=== PATIENT | female | born 1945 | race Caucasian/White ===

== ENCOUNTER 2017-02-22 08:45 | Inpatient (IN) | payer MEDICAID, OTHER ==
[~2017-02-22] VITALS: Ht 154.9 cm; Wt 73.0 kg
[2017-02-22] VITALS (10 sets, daily range): BP systolic 137–184; BP diastolic 53–88; PULSE 48–82; RESP 19; TEMP 98.1; Ht 154.9 cm; Wt 73.0 kg
[~2017-02-22 08:45] MED LIST: ATROPINE 1 MG/10 ML SYRINGE ONE; CALC667C PO; EPINEPHrine 0.1 MG/ML SYG ONE; ESOM40CA PO; FAMO40TA38 PO; FLUO20CA38 PO; HYDR-3672 PO; LOSA50TA2 PO; METO5TAB58 PO; NEPH PO; NIFE60TA7 PO; ONDA4TAB8 PO; TRAM50TA2 PO
[2017-02-22] MEDS ORDERED: NA BICARBONATE 8.4% 50 ML SYG IV STA (08:50)
[2017-02-22] MEDS ORDERED: ALBUTEROL 0.5% (NEB) 2.5 MG/0.5 ML AMP INH STA (08:57)
[2017-02-22 09:28] LABS: BASOPHILS % 0.5 % (0.0-2.0); EOSINOPHILS # 0.2 10^3/ul (0.0-0.5); EOSINOPHILS % 2.7 % (0.0-7.0); HEMATOCRIT 33.1 % (37.0-47.0); HEMOGLOBIN 10.6 g/dl (12.0-16.0); LYMPHOCYTES % 13.2 % (15.0-51.0); MEAN CORPUSCULAR HEMOGLOBIN 32.8 pg (29.0-33.0); MEAN CORPUSCULAR VOLUME 102.5 fl (82.0-101.0); MEAN PLATELET VOLUME 9.7 fl (7.4-10.4); MONOCYTE # 0.6 10^3/ul (0.3-0.9); MONOCYTES % 7.8 % (0.0-11.0); NEUTROPHIL # 5.9 10^3/ul (1.6-7.5); NEUTROPHILS % 75.3 % (39.0-77.0); PLATELET COUNT 203 10^3/UL (140-415); RED BLOOD COUNT 3.23 10^6/ul (4.20-5.40); WHITE BLOOD COUNT 7.8 10^3/ul (4.8-10.8)
[2017-02-22 09:50] LABS: CALCIUM 8.2 mg/dl (8.4-10.2); CREATININE 7.48 mg/dl (0.44-1.00)
[2017-02-22 10:02] LABS: POTASSIUM 7.9 mmol/L (3.5-5.1); TROPONIN-I 0.041 ng/ml (0.00-0.12)
[2017-02-22] MEDS ORDERED: INSULIN REGULAR, HUMAN 100 UNIT/1 ML 3ML VIAL IV STA (10:14)
[2017-02-22] MEDS ORDERED: CA CHLORIDE 10% 10 ML SYRINGE IV STA (10:14)
[2017-02-22] MEDS ORDERED: NA POLYST SULFON 15 GM/60 ML BTL PO STA (10:14)
[2017-02-22 10:22] LABS: INR 0.95; PROTIME 12.7 Sec (12.2-14.2)
[2017-02-22] MEDS ORDERED: ACETAMINOPHEN 325 MG TAB PO PRN (10:30)
[2017-02-22] MEDS ORDERED: ONDANSETRON 4 MG INJ IV PRN (10:30)
[2017-02-22] MEDS ORDERED: DEXTROSE 50% 50 ML SYRINGE IV PRN ×3 (10:30→20:30)
--- NOTE | 2017-02-22 10:43 | RADRPT ---
PROCEDURE: XR Chest. CLINICAL INDICATION: Hyperkaliemia TECHNIQUE: Frontal chest x-ray was obtained. COMPARISON: Chest x-ray November 26, 2012 FINDINGS: There is cardiomegaly. Mediastinum is not widened. No hilar masses seen. Lungs are clear of any infi ltrates. There is no effusion or pneumothorax. Noted is an old healed left clavicular shaft fracture . IMPRESSION: Cardiomegaly. No pneumonia or failure .Lico Rodriguez MD, MD Date Time Electronically viewed and signed by .Lico Rodriguez MD, MD on 02/22/2017 10:43 .A/
--- NOTE | 2017-02-22 12:18 | QN ---
Documentation Comment [id number] KENZIE BROWNE MD Feb 22, 2017 12:18
[2017-02-22] MEDS ORDERED: NACL 0.9% 3 ML SYG IV SCH (12:30)
[2017-02-22] MEDS ORDERED: BISACODYL (EC) 5 MG TAB PO PRN (12:30)
[2017-02-22] MEDS ORDERED: ACETAMINOPHEN 650 MG SUPP PR PRN (12:30)
[2017-02-22] MEDS ORDERED: METOCLOPRAMIDE 5 MG TAB PO PRN (12:30)
[2017-02-22] MEDS ORDERED: DOCUSATE SODIUM 100 MG CAP PO PRN (12:30)
[2017-02-22] MEDS ORDERED: ONDANSETRON 4 MG TAB PO PRN (12:30)
--- NOTE | 2017-02-22 12:30 | ERD ---
ER Documentation Chief Complaint Chief Complaint more lethargic than normal coming from dialysis center didnt received treat HPI Patient is a 71-year-old female with hypertension, diabetes, and dialysis who presents with confusion. The patient was sent from dialysis because she was confused and they would not dialyze her because of it. She was brought in by ambulance. She did said that she fell yesterday because she felt diffusely weak. She did have dialysis on Monday. Her primary doctor is Dr. Reno. ROS All systems reviewed and are negative except as per history of present illness. Medications Home Meds Active Scripts Nifedipine* (Nifedipine ER*) 60 Mg Tablet.sa, 60 MG PO BID, #120 TAB.SA Prov:MARVIN WATKINS MD 04/10/14 Reported Medications Tramadol HCl (Tramadol HCl) 50 Mg Tab, 25 MG PO DAILY Y for PAIN, TAB 04/09/14 Ondansetron Hcl* (Zofran*) 4 Mg Tablet, 4 MG PO DAILY Y for NAUSEA AND OR VOMITING, TAB 04/09/14 Metoclopramide* (Reglan*) 5 Mg Tablet, 5 MG PO DAILY Y for NAUSEA AND/OR VOMITING, TAB 04/09/14 Calcium Acetate* (Calcium Acetate*) 667 Mg Capsule, 667 MG PO WITH MEALS, CAP 04/09/14 Hydralazine Hcl* (Hydralazine Hcl*) 50 Mg Tab, 50 MG PO TID, TAB 04/09/14 Multivit/Ca Carb/B Cmplx/Fa* (Beronica-Morgan*) 1 Tab Tab, 1 TAB PO DAILY, TAB 04/09/14 Fluoxetine Hcl* (Prozac*) 20 Mg Capsule, 20 MG PO DAILY 01/09/12 Famotidine* (Pepcid*) 40 Mg Tablet, 40 MG PO HS 01/09/12 Esomeprazole Mag Trihydrate (Nexium) 40 Mg Capsule.dr, 40 MG PO DAILY 01/09/12 Losartan Potassium* (Cozaar*) 50 Mg Tablet, 50 MG PO BID 01/09/12 Allergies Allergies: Coded Allergies: No Known Allergies (Verified Allergy, Mild, 02/22/17) PMhx/Soc History of Surgery: Yes (rt and left toe amp) Anesthesia Reaction: No Hx Neurological Disorder: No Hx Respiratory Disorders: No Hx Cardiac Disorders: Yes (HTN) Hx Psychiatric Problems: Yes (DEPRESSION) Hx Miscellaneous Medical Probl: Yes (RETINOPATHY,COMP FRACTURE,DIALYSIS MWF) Hx Alcohol Use: No Hx Substance Use: No Hx Tobacco Use: No Smoking Status: Former smoker FmHx Family History: No diabetes Physical Exam Vitals Vital Signs Date Time Temp Pulse Resp B/P Pulse Ox O2 Delivery O2 Flow Rate FiO2 02/22/17 09:27 85 20 144/90 100 Room Air 02/22/17 09:12 98.4 121 15 129/95 96 02/22/17 09:08 62 18 96 21 Physical Exam Const: No acute distress Head: Atraumatic Eyes: Normal Conjunctiva ENT: Normal External Ears, Nose and Mouth. Neck: Full range of motion..~ No meningismus. Resp: Clear to auscultation bilaterally Cardio: Regular rate and rhythm, no murmurs Abd: Soft, non tender, non distended. Normal bowel sounds Skin: No petechiae or rashes Back: No midline or flank tenderness Ext: No cyanosis, or edema Neur: Awake and moves all 4 extremities Result Diagram: 02/22/17 0910 02/22/17 0910 Results 24 hrs Laboratory Tests Test 02/22/17 09:10 White Blood Count 7.810^3/ul Red Blood Count 3.2310^6/ul Hemoglobin 10.6g/dl Hematocrit 33.1% Mean Corpuscular Volume 102.5fl Mean Corpuscular Hemoglobin 32.8pg Mean Corpuscular Hemoglobin Concent 32.0g/dl Red Cell Distribution Width 17.0% Platelet Count 16474^3/UL Mean Platelet Volume 9.7fl Neutrophils % 75.3% Lymphocytes % 13.2% Monocytes % 7.8% Eosinophils % 2.7% Basophils % 0.5% Nucleated Red Blood Cells % 0.0/100WBC Neutrophils # 5.910^3/ul Lymphocytes # 1.010^3/ul Monocytes # 0.610^3/ul Eosinophils # 0.210^3/ul Basophils # 0.010^3/ul Nucleated Red Blood Cells # 0.010^3/ul Prothrombin Time 12.7Sec Prothrombin Time Ratio 1.0 INR International Normalized Ratio 0.95 Activated Partial Thromboplast Time 33.0Sec Sodium Level 133mmol/L Potassium Level 7.9mmol/L Chloride Level 88mmol/L Carbon Dioxide Level 26mmol/L Anion Gap 27 Blood Urea Nitrogen 85mg/dl Creatinine 7.48mg/dl Glucose Level 141mg/dl Calcium Level 8.2mg/dl Troponin I 0.041ng/ml Current Medications Medications (Trade) Dose Ordered Sig/Cornelius Route PRN Reason Start Time Stop Time Status Last Admin Dose Admin Sodium Bicarbonate (Na Bicarb 8.4% Syg) 50 ml ONCE STAT IV 02/22/17 08:50 02/22/17 08:52 DC 02/22/17 09:26 Albuterol (Proventil 0.5% (Neb)) 15 mg ONCE STAT INH 02/22/17 08:57 02/22/17 08:58 DC 02/22/17 09:05 Sodium Polystyrene Sulfonate (Kayexalate) 30 gm ONCE STAT PO 02/22/17 10:14 02/22/17 10:15 DC 02/22/17 10:25 Calcium Chloride (Ca Chloride 10% Syg) 1,000 mg ONCE STAT IV 02/22/17 10:14 02/22/17 10:15 DC 02/22/17 10:25 Insulin Human Regular (Humulin R) 10 unit ONCE STAT IV 02/22/17 10:14 02/22/17 10:15 DC 02/22/17 10:27 Dextrose (D50w Syringe) ONCE PRN IV POC BLOOD GLUCOSE <250 MG/DL 02/22/17 10:30 Ondansetron HCl (Zofran Inj) 4 mg ER BRIDGE PRN IV NAUSEA AND/OR VOMITING 02/22/17 10:30 02/22/17 12:17 DC Acetaminophen (Tylenol Tab) 650 mg ER BRIDGE PRN PO MILD PAIN/FEVER 02/22/17 10:30 02/22/17 12:16 DC Calcium Acetate (Phoslo) 667 mg WITH MEALS PO 02/22/17 18:00 Famotidine (Pepcid) 40 mg HS PO 02/22/17 21:00 Fluoxetine HCl (Prozac) 20 mg DAILY PO 02/23/17 09:00 Hydralazine HCl (Apresoline) 50 mg TID PO 02/22/17 13:00 Losartan Potassium (Cozaar) 50 mg BID PO 02/22/17 21:00 Metoclopramide HCl (Reglan) 5 mg DAILY PRN PO NAUSEA AND/OR VOMITING 02/22/17 12:30 Multivit/Ca Carb/ B Cmplx/FA/Prenat (Beronica-Morgan) 1 tab DAILY PO 02/23/17 09:00 Nifedipine (Procardia Xl) 60 mg BID PO 02/22/17 21:00 Ondansetron HCl (Zofran Tab) 4 mg DAILY PRN PO NAUSEA AND/OR VOMITING 02/22/17 12:30 Tramadol HCl (Ultram) 25 mg DAILY PRN PO PAIN 02/22/17 12:30 IV Flush (NS 3 ml) 3 ml PER PROTOCOL IV 02/22/17 12:30 Ondansetron HCl (Zofran Inj) 4 mg Q6H PRN IV NAUSEA AND/OR VOMITING 02/22/17 12:30 Acetaminophen (Tylenol Tab) 650 mg Q6H PRN PO PAIN LEVEL 1-3 OR FEVER 02/22/17 12:30 Acetaminophen (Tylenol Supp) 650 mg Q6H PRN VA PAIN LEVEL 1-3 OR FEVER 02/22/17 12:30 Docusate Sodium (Colace) 100 mg Q12H PRN PO CONSTIPATION 02/22/17 12:30 Bisacodyl (Dulcolax) 5 mg DAILY PRN PO CONSTIPATION 02/22/17 12:30 Pantoprazole (Protonix Iv) 40 mg DAILY@06 IV 02/23/17 06:00 Heparin Sodium (Porcine) (Heparin (5000 Units/0.5 ml)) 5,000 unit Q12 SC 02/22/17 21:00 Procedures/MDM EKG read by me: Rate/Rhythm: Bradycardia with third-degree heart block Intervals: Normal Impression: Bradycardia with heart block Patient is a 71-year-old female who presents with acute hyperkalemia. The patient had bradycardia and heart block upon arrival and I did have concern for hyperkalemia as the patient is a dialysis patient. The patient was given albuterol and bicarbonate empirically. Her potassium was confirmed at 7.9 showing hyperkalemia and the patient was given insulin, glucose, calcium chloride, and bicarbonate. The patient will be admitted to the care of Dr. Reno. He is arranging emergent dialysis in the emergency department. The patient's bradycardia and heart block improved with treatment of the potassium. I do not believe she requires pacemaker placement at this time. Critical Care: Time: 35 minutes excluding all billable procedures. Treatments/Evaluations: Close monitoring and treatment of unstable vital signs, cardiorespiratory, and neurologic status, while maintaining tight balance of fluid, respiratory, and cardiac interventions. Departure Diagnosis: Primary Impression: Hyperkalemia Additional Impressions: Altered level of consciousness Bradycardia Condition: Serious DUANE REARDON MD Feb 22, 2017 12:30
--- NOTE | 2017-02-22 12:55 | HP ---
DATE OF ADMISSION: 02/22/2017 HISTORY OF PRESENT ILLNESS: Mariza Bejarano is a 71-year-old female with history of ESRD, hypert ension, history of diabetes mellitus, neuropathy, history of diabetic nephropathy, retinopathy, neur opathy, history of right great toe amputation, , history of GERD, history of CAD, atherosclerot ic heart disease, presented to the dialysis center, was weak, lethargic, sent here. The patient dev eloped bradycardia and hyperkalemia and treated medically and patient is going to be undergoing hemo dialysis. He is awake, alert, not in any acute respiratory distress. Denies any chest pain, palpit ation, fever, chills or rigors. PAST MEDICAL HISTORY: Positive for diabetes, hypertension, ESRD, anemia, history of GI bleed, histo ry of diabetic nephropathy, retinopathy and neuropathy, fistula placement, arthritis, wheelchair ariane nd. ALLERGY HISTORY: NEGATIVE. FAMILY HISTORY: Negative. SOCIAL HISTORY: Negative. MEDICATION HISTORY: 1. PhosLo. 2. Omeprazole. 3. Pepcid. 4. Prozac. 5. Hydralazine. 6. Losartan. 7. Reglan. 8. Multiple vitamin. 9. Nifedipine 10. Tramadol. REVIEW OF SYSTEMS: HEENT: Unremarkable except as mentioned. RESPIRATORY: Unremarkable. CARDIOVASCULAR: No chest wall palpitation. ABDOMEN: Dyspepsia on and off and history of gastrointestinal bleed. EXTREMITIES: Unremarkable. CENTRAL NERVOUS SYSTEM: Unremarkable. PHYSICAL EXAMINATION: GENERAL: The patient is awake and alert. VITAL SIGNS: Pulse 80, blood pressure 140/90. HEAD: Atraumatic, normocephalic. Pupils equal, reactive to light. The patient's pupils are cloudy The patient has pale-looking conjunctivae. NECK: Supple, no JVD. LUNGS: Clear. CARDIOVASCULAR: S1, S2 is normal. Systolic murmur soft at the apex. ABDOMEN: Soft, bowel sounds present, no palpable mass or hepatosplenomegaly. EXTREMITIES: No cyanosis, clubbing or edema. CENTRAL NERVOUS SYSTEM: The patient is awake, alert with no focal deficit. LABORATORY DATA: Shows hematocrit 33.1, potassium 7.9, BUN 18, creatinine 7.48. IMPRESSION: 1. Hyperkalemia. 2. Arrhythmia. 3. End-stage renal disease. 4, Diabetes mellitus. 5. Hypertension. 6. Anemia. 7. Gastrointestinal bleed related. 8. Diabetic nephropathy, retinopathy and neuropathy. PLAN: To continue diabetic renal diet, sliding scale. Continue home medication, hemodialysis STAT. The patient's orders were done. Dictated By: KENZIE BROWNE MD BS/NTS Conf#: [id number] DID#: [id number]
[2017-02-22] MEDS ORDERED: GLUCAGON 1 MG INJ IM PRN (20:30)
[2017-02-22] MEDS ORDERED: GLUCOSE GEL 15 GRAM TUBE PO PRN ×2 (20:30)
[2017-02-22] MEDS ORDERED: GLUCOSE GEL 15 GRAM TUBE BUCCAL PRN (20:30)
[2017-02-22] MEDS: INSULIN ASPART [NOVOLOG] 3 ML PEN SC SCH (21:00)
[2017-02-22] MEDS: CALCIUM ACETATE 667 MG CAP PO SCH (21:36)
[2017-02-22] MEDS: NIFEdipine (XL) 60 MG TAB PO SCH (21:37)
[2017-02-22] MEDS: FAMOTIDINE 20 MG TAB PO SCH (21:37)
[2017-02-22] MEDS: LOSARTAN 50 MG TAB PO SCH (21:37)
[2017-02-22] MEDS: HEPARIN 5,000 UNIT/0.5 ML VIAL SC SCH (21:43)
[2017-02-22] MEDS: traMADol 50 MG TAB PO PRN (21:54)
[2017-02-23] VITALS (51 sets, daily range): BP systolic 121–185; BP diastolic 38–105; PULSE 14–141; RESP 9–25
[2017-02-23] MEDS ORDERED: hydrALAzine 20 MG INJ IV PRN (01:30)
[2017-02-23] MEDS: ACCU-CHEK XX SCH (02:00)
[2017-02-23] MEDS ORDERED: PANTOPRAZOLE 40 MG INJ IV SCH (06:00)
[2017-02-23] MEDS: INSULIN ASPART [NOVOLOG] 3 ML PEN SC SCH ×4 (07:55→21:00)
[2017-02-23] MEDS: MULTIVIT/CA CARB/B CMPLX/FA TAB PO SCH (08:08)
[2017-02-23] MEDS: NIFEdipine (XL) 60 MG TAB PO SCH ×2 (08:08→21:00)
[2017-02-23] MEDS: FLUOXETINE 20 MG CAP PO SCH (08:08)
[2017-02-23] MEDS: CALCIUM ACETATE 667 MG CAP PO SCH ×3 (08:09→17:35)
[2017-02-23] MEDS: LOSARTAN 50 MG TAB PO SCH ×2 (08:09→21:50)
[2017-02-23] MEDS: HEPARIN 5,000 UNIT/0.5 ML VIAL SC SCH ×2 (08:13→22:24)
[2017-02-23] MEDS: traMADol 50 MG TAB PO PRN (08:25)
[2017-02-23 10:01] LABS: ALBUMIN 3.9 g/dl (3.3-4.9); ALBUMIN/GLOBULIN RATIO 1.14; CALCIUM 7.8 mg/dl (8.4-10.2); CREATININE 6.48 mg/dl (0.44-1.00); POTASSIUM 5.9 mmol/L (3.5-5.1); TOTAL PROTEIN 7.3 g/dl (6.1-8.1)
--- NOTE | 2017-02-23 14:56 | QN ---
Documentation Comment SO[employer] called on patient secondary to symptomatic bradycardia with HR in the 20s. Patient was still responsive when entered room and was complaining of weakness. She was talking and let out a loud yelp and went unresponsive. Unable to palpate a pulse and patient was unresponsive and was gurgling. At that time, chest compressions were started on code blue was called. Patient responded and CPR was stopped. patient was given Atropine and initially responded with HR in the 80s and then dropped to 60s. Patient remained awake and alert and states she was feeling better. EKG performed showed sinus bradycardia and LBBB which nurse said was present on admission but unsure if new onset. Primary provider was made aware of event and Dr. Quiles, Cardiology, is already on the case. Stat labs and CXR were ordered. Patient transferred to ICU for close monitoring. >30 minutes of critical care was spent caring for patient PERRI ANDERSON MD Feb 23, 2017 14:56
--- NOTE | 2017-02-23 15:57 | PN ---
Date/Time of Note Date/Time of Note DATE: 02/23/17 TIME: 15:55 Assessment/Plan VTE Prophylaxis VTE Prophylaxis Intervention: other Lines/Catheters IV [facility] Mid [facility] Urinary Cath still in place: No Assessment/Plan Chief Complaint/Hosp Course IMPRESSION: 1. Hyperkalemia. 2. Arrhythmia. 3. End-stage renal disease. 4, Diabetes mellitus. 5. Hypertension. 6. Anemia. 7. Gastrointestinal bleed related. 8. Diabetic nephropathy, retinopathy and neuropathy. 9 r/o sss plan kayexalate hd marcellains to see Problems: Subjective 24 Hr Interval Summary Subjective hx not possible: other (s/pams now in icu,willneed hd) Exam/Review of Systems Vital Signs Vitals Vital Signs Date Time Temp Pulse Resp B/P Pulse Ox O2 Delivery O2 Flow Rate FiO2 02/23/17 15:43 98.2 42 14 155/99 100 02/22/17 18:11 Room Air 02/22/17 09:08 21 Intake and Output 02/22/17 02/22/17 02/23/17 14:59 22:59 06:59 Intake Total 400 ml Output Total 2900 ml Balance -2500 ml Exam Neck: supple Respiratory: clear to auscultation Cardiovascular: regular rate and rhythm Gastrointestinal: bowel sounds (+), soft Extremities: No edema Results Result Diagram: 02/22/17 0910 02/23/17 0840 Results 24 hrs Laboratory Tests Test 02/22/17 21:39 02/23/17 08:04 02/23/17 08:40 02/23/17 12:22 Bedside Glucose 112 104 138 Sodium Level 137 Potassium Level 5.9 #H Chloride Level 92 L Carbon Dioxide Level 32 H Anion Gap 19 #H Blood Urea Nitrogen 57 H Creatinine 6.48 H Glucose Level 107 Calcium Level 7.8 L Total Bilirubin 0.0 L Direct Bilirubin 0.00 Indirect Bilirubin 0.0 Aspartate Amino Transf (AST/SGOT) 27 Alanine Aminotransferase (ALT/SGPT) 23 Alkaline Phosphatase 175 H Total Protein 7.3 Albumin 3.9 Globulin 3.40 H Albumin/Globulin Ratio 1.14 Test 02/23/17 14:26 Bedside Glucose 167 Medications Medications Current Medications Dextrose (D50w Syringe) ONCE PRN IV POC BLOOD GLUCOSE <250 MG/DL Last administered on 02/22/17t 12:28; Admin Dose 100 ML; Start 02/22/17 at 10:30 Famotidine (Pepcid) 40 mg HS PO Last administered on 02/22/17 21:37; Admin Dose 40 MG; Start 02/22/17 at 21:00 Fluoxetine HCl (Prozac) 20 mg DAILY PO Last administered on 02/23/17 08:08; Admin Dose 20 MG; Start 02/23/17 at 09:00 Hydralazine HCl (Apresoline) 50 mg TID PO Last administered on 02/23/17 12:26 ; Admin Dose 50 MG; Start 02/22/17 at 13:00 Losartan Potassium (Cozaar) 50 mg BID PO Last administered on 02/23/17 08:09 ; Admin Dose 50 MG; Start 02/22/17 at 21:00 Metoclopramide HCl (Reglan) 5 mg DAILY PRN PO NAUSEA AND/OR VOMITING; Start at 12:30 Multivit/Ca Carb/ B Cmplx/FA/Prenat (Beronica-Morgan) 1 tab DAILY PO Last administered on 02/23/17 08:08; Admin Dose 1 TAB; Start 02/23/17 at 09:00 Nifedipine (Procardia Xl) 60 mg BID PO Last administered on 02/23/17 08:08; Admin Dose 60 MG; Start 02/22/17 at 21:00 Ondansetron HCl (Zofran Tab) 4 mg DAILY PRN PO NAUSEA AND/OR VOMITING; Start 02/22/17 at 12:30 Tramadol HCl (Ultram) 25 mg DAILY PRN PO PAIN Last administered on 02/23/17 08:25; Admin Dose 25 MG; Start 02/22/17 at 12:30 Ondansetron HCl (Zofran Inj) 4 mg Q6H PRN IV NAUSEA AND/OR VOMITING; Start at 12:30 Acetaminophen (Tylenol Tab) 650 mg Q6H PRN PO PAIN LEVEL 1-3 OR FEVER; Start 02/22/17 at 12:30 Acetaminophen (Tylenol Supp) 650 mg Q6H PRN HI PAIN LEVEL 1-3 OR FEVER; Start 02/22/17 at 12:30 Docusate Sodium (Colace) 100 mg Q12H PRN PO CONSTIPATION; Start 02/22/17 at 12 :30 Bisacodyl (Dulcolax) 5 mg DAILY PRN PO CONSTIPATION; Start 02/22/17 at 12:30 Heparin Sodium (Porcine) (Heparin (5000 Units/0.5 ml)) 5,000 unit Q12 SC Last administered on 02/23/17 08:13; Admin Dose 5,000 UNIT; Start 02/22/17 at 21: 00 Diagnostic Test (Pha) (Accu-Chek) 1 ea 02 XX ; Start 02/23/17 at 02:00 Miscellaneous Information 1 ea NOTE XX ; Start 02/22/17 at 20:30 Glucose (Glutose) 15 gm Q15M PRN PO DECREASED GLUCOSE; Start 02/22/17 at 20:30 Glucose (Glutose) 22.5 gm Q15M PRN PO DECREASED GLUCOSE; Start 02/22/17 at 20: 30 Dextrose (D50w Syringe) 25 ml Q15M PRN IV DECREASED GLUCOSE; Start 02/22/17 at 20:30 Dextrose (D50w Syringe) 50 ml Q15M PRN IV DECREASED GLUCOSE; Start 02/22/17 at 20:30 Glucagon (Glucagen) 1 mg Q15M PRN IM DECREASED GLUCOSE; Start 02/22/17 at 20: 30 Glucose (Glutose) 15 gm Q15M PRN BUCCAL DECREASED GLUCOSE; Start 02/22/17 at 20:30 Hydralazine HCl (Apresoline) 10 mg Q6H PRN IV ELEVATED SYSTOLIC BP Last administered on 02/23/17 01:39; Admin Dose 10 MG; Start 02/23/17 at 01:30 Pantoprazole (Protonix Tab) 40 mg DAILY@06 PO ; Start 02/24/17 at 06:00 KENZIE BROWNE MD Feb 23, 2017 15:57
[2017-02-23] MEDS ORDERED: NA POLYST SULFON 15 GM/60 ML BTL PO ONE (16:00)
[2017-02-23 16:31] LABS: CALCIUM 7.4 mg/dl (8.4-10.2); CREATININE 6.69 mg/dl (0.44-1.00); MAGNESIUM 2.8 mg/dl (1.7-2.5); PHOSPHORUS 5.4 mg/dl (2.5-4.9)
[2017-02-23 16:38] LABS: POTASSIUM 6.7 mmol/L (3.5-5.1)
--- NOTE | 2017-02-23 16:38 | RADRPT ---
PROCEDURE: XR Chest. CLINICAL INDICATION: Status post chest compressions. TECHNIQUE: Single AP portable chest. COMPARISON: 04/09/2013 Chest x-ray FINDINGS: The cardiomediastinal silhouette is within normal limits of size. Pacemaking device overlying the ri ght atrium mild prominence of the pulmonary vascularity and interstitial markings. The lungs are erika ar without pleural effusion or focal consolidation. No pneumothorax. The osseous structures and sof t tissues are unremarkable. IMPRESSION: 1. No evidence for active cardiopulmonary disease. RPTAT:AAJJ Reji Lopez Physician Date Time Electronically viewed and signed by Physician Junior on 02/23/2017 16:38 ASHLEY/
[2017-02-23] MEDS ORDERED: ATROPINE 1 MG/10 ML SYRINGE ONE (16:47)
[2017-02-23] MEDS ORDERED: NA BICARBONATE 8.4% 50 ML SYG IV ONE (17:30)
[2017-02-23] MEDS ORDERED: CALCIUM GLUCONATE 10% 1 GM in SOD CHLORIDE 0.9% 100 ML IVPB ONE (17:30)
[2017-02-23] MEDS ORDERED: INSULIN REGULAR, HUMAN 100 UNIT/1 ML 3ML VIAL IV ONE (17:30)
[2017-02-23] MEDS ORDERED: DEXTROSE 50% 50 ML SYRINGE IV ONE (17:30)
[2017-02-23] MEDS ORDERED: ATROPINE 0.4 MG INJ IV ONE (18:00)
[2017-02-23] MEDS ORDERED: DOPamine-D5W 1.6 MG/ML 250 ML IV SCH (18:00)
[2017-02-23 19:39] LABS: CK-MB 0.93 ng/ml (0.0-2.4); TROPONIN-I 0.07 ng/ml (0.00-0.12)
[2017-02-23] MEDS: ONDANSETRON 4 MG INJ IV PRN (21:38)
[2017-02-23] MEDS: FAMOTIDINE 20 MG TAB PO SCH (21:50)
--- NOTE | 2017-02-23 21:51 | CONS ---
DATE OF ADMISSION: 02/22/2017 DATE OF CONSULTATION: 02/23/2017 CARDIOLOGY CONSULTATION REASON FOR CONSULTATION: Cardiac arrhythmia with severe bradycardia to the 40s and high 30s. REQUESTING PHYSICIAN: Dr. Watson Browne HISTORY OF PRESENT ILLNESS: Ms. Bejarano is a 71-year-old female with history of end-stage renal disease on hemodialysis, hypertension, diabetes mellitus, neuropathy, diabetic nephropathy, retinopathy, PAD with right great toe amputation, gastroesophageal reflux disease, who initially presented to the dialysis center with lethargy, generalized weakness. The patient was found to be bradycardic and hyperkalemic, and therefore sent to [facility] for further evaluation and treatment. Initially upon arrival, temperature 98.4, blood pressure 129/95, pulse initially 121, saturating 96% with a respiratory rate of 15 on room air. The patient's labs were notable for a white blood cell count of 7.8, hemoglobin 10.6, platelet count of 203, sodium of 5.9, creatinine of 6.4, BUN 57, magnesium 2.8. INR of 0.95. The patient underwent a chest x-ray revealing cardiomegaly, but no pneumonia or failure. The patient's electrocardiogram initially revealed a heart rate of 59 with left bundle branch block pattern secondary to repolarization abnormalities and then subsequently had a decrease in heart rate down to approximately 30, concerning for possible junctional escape rhythm versus a ventricular escape rhythm, with a wide QRS complex, although patient has baseline bundle branch. The patient subsequently was admitted to the floor and initially underwent hemodialysis with some improvement in heart rates, but then was noted to again have episodes of bradycardia down to the 40s and high 30s, regular, and had a repeat potassium check, now at 6.7. The patient has been transferred to the ICU, has been given Kayexalate, and has been continued now on Procardia, Losartan. Patient now awaits hemodialysis, and has additionally been given calcium carbonate. The patient, at this time, denies chest pain, shortness of breath, but states she feels very weak. PAST MEDICAL HISTORY: As above in HPI. MEDICATIONS CURRENTLY IN HOSPITAL: 1. Protonix. 2. Calcium gluconate IV x1. 3. Prozac 20 mg daily. 4. Beronica-Morgan. 5. Hydralazine IV q.6 p.r.n. 6. Pepcid 40 mg at bedtime. 7. Cozaar 50 mg b.i.d. 8. Procardia 60 mg b.i.d. 9. Heparin 5000 subcutaneous q.12. 10. Insulin sliding scale. 11. Hydralazine 50 mg p.o. t.i.d. 12. Reglan p.r.n. 13. Tylenol p.r.n. 14. Zofran p.r.n. 15. Dulcolax p.r.n. ALLERGIES: NO KNOWN DRUG ALLERGIES. SOCIAL HISTORY: No tobacco, ETOH or illicit drug use. FAMILY HISTORY: No history of sudden cardiac or early CAD. REVIEW OF SYSTEMS: As above in HPI. CONSTITUTIONAL: No fevers, chills. PULMONARY: Mild shortness of breath. CARDIOVASCULAR: Bradycardic. GASTROINTESTINAL: No vomiting. GENITOURINARY: No hematuria. MUSCULOSKELETAL: Degenerative joint disease. PSYCHIATRIC: Possible psychiatric history, on medications. NEUROLOGIC: No documented history of CVA. ENDOCRINE: Diabetes mellitus. No history of thyroid disease. PHYSICAL EXAMINATION: VITAL SIGNS: Temperature of 98.2, blood pressure most recently 164/60, pulse in the 40s, saturating 98%. GENERAL: The patient is alert, awake, complaining of generalized weakness. NECK: JVP of 9 cm of water. CHEST: Fair air movement throughout. HEART: Bradycardic, regular rhythm, normal S1, S2, I/ systolic murmur. ABDOMEN: Positive bowel sounds, soft. EXTREMITIES: No edema, 1+ pulses bilaterall_. LABORATORY DATA: Most recently from today, sodium 133, potassium 6.7, creatinine of 6.69, BUN of 62. White blood cell count of 7.8, hemoglobin 10.6, platelet count of 203. IMAGING STUDIES: Chest x-ray from this afternoon reveals no evidence of acute cardiopulmonary disease. ECG: As above in HPI. No further electrocardiograms for my review at this time. IMPRESSION: 1. Bradycardia, significant down to the 30s with probable junctional escape versus ventricular escape with an actual elevated blood pressure in the setting of hyperkalemia. 2. Abnormal electrocardiogram, left bundle branch block. Assess for acute coronary syndrome. 3. Hypertension. 4. End-stage renal disease on hemodialysis. 5. Hyperkalemia, likely cause of patient's bradyarrhythmias. 6. Diabetes mellitus. 7. Anemia. 8. Hyponatremia. RECOMMENDATIONS: 1. At this time, would maintain patient in ICU on close monitoring. 2. Would place pacer pads on the patient, and would keep atropine at bedside for use for treatment of symptomatic bradycardia. 3. For ongoing decreased heart rate, we will likely initiate patient on isuprel as patient is hypertensive at this time for beta stimulation and increase in heart rate. 4. Agree with dose of calcium carbonate at this time. Nurse is waiting for this medication from pharmacy. 5. Check a 2D echocardiogram to further assess patient's ejection fraction, wall motion and major abnormalities. 6. Complete the patient's rule out for myocardial infarction to ensure that the patient's constellation of symptoms are not result of an acute coronary syndrome such as acute myocardial infarction, although unlikely, and patient is to undergo emergent hemodialysis. Thank you for allowing me to take part in the care of this patient. I will continue to follow along very closely with you with further recommendations to be made as the patient progresses through her inpatient hospital clinical course. Dictated By: IAN DHALIWAL/MAHENDRA Conf#: [id number] DID#: [id number] CC: WATSON BROWNE MD;*EndCC* MTDD
[2017-02-24] VITALS (54 sets, daily range): BP systolic 87–185; BP diastolic 50–97; PULSE 56–80; RESP 11–25
[2017-02-24 01:42] LABS: TROPONIN-I 0.078 ng/ml (0.00-0.12)
[2017-02-24 01:43] LABS: CK-MB 1.04 ng/ml (0.0-2.4)
[2017-02-24] MEDS ORDERED: ACCU-CHEK XX SCH (02:00)
[2017-02-24] MEDS: ACCU-CHEK XX SCH (02:00)
[2017-02-24] MEDS ORDERED: LORAZEPAM 2 MG INJ IV PRN (05:00)
[2017-02-24] MEDS: PANTOPRAZOLE (EC) 40 MG TAB PO SCH (05:59)
[2017-02-24] MEDS: ONDANSETRON 4 MG INJ IV PRN (06:14)
[2017-02-24 06:42] LABS: ABNORMAL IP MESSAGE 1; BASOPHILS % 0.7 % (0.0-2.0); EOSINOPHILS # 0.4 10^3/ul (0.0-0.5); EOSINOPHILS % 6.4 % (0.0-7.0); HEMATOCRIT 27.9 % (37.0-47.0); LYMPHOCYTES # 0.6 10^3/ul (0.8-2.9); LYMPHOCYTES % 10.7 % (15.0-51.0); MEAN CORPUSCULAR HEMOGLOBIN 33.1 pg (29.0-33.0); MEAN CORPUSCULAR HGB CONC 32.3 g/dl (32.0-37.0); MEAN CORPUSCULAR VOLUME 102.6 fl (82.0-101.0); MEAN PLATELET VOLUME 10.1 fl (7.4-10.4); MONOCYTE # 0.6 10^3/ul (0.3-0.9); MONOCYTES % 11.2 % (0.0-11.0); NEUTROPHIL # 3.8 10^3/ul (1.6-7.5); NEUTROPHILS % 70.6 % (39.0-77.0); PLATELET COUNT 174 10^3/UL (140-415); RED BLOOD COUNT 2.72 10^6/ul (4.20-5.40); WHITE BLOOD COUNT 5.4 10^3/ul (4.8-10.8)
[2017-02-24 06:50] LABS: POSITIVE DIFF @See below
[2017-02-24 07:15] LABS: CK-MB 0.76 ng/ml (0.0-2.4); TROPONIN-I 0.079 ng/ml (0.00-0.12)
[2017-02-24 07:20] LABS: ALBUMIN 3.6 g/dl (3.3-4.9); ALBUMIN/GLOBULIN RATIO 0.94; BILIRUBIN,INDIRECT 0.2 mg/dl (0-1.1); BILIRUBIN,TOTAL 0.2 mg/dl (0.2-1.3); CALCIUM 8.6 mg/dl (8.4-10.2); CREATININE 5.08 mg/dl (0.44-1.00); POTASSIUM 4.8 mmol/L (3.5-5.1); TOTAL PROTEIN 7.4 g/dl (6.1-8.1)
[2017-02-24 07:21] LABS: CHOL/HDL RATIO 2.4 RATIO
[2017-02-24] MEDS: INSULIN ASPART [NOVOLOG] 3 ML PEN SC SCH ×4 (07:35→20:49)
[2017-02-24] MEDS: MULTIVIT/CA CARB/B CMPLX/FA TAB PO SCH (08:14)
[2017-02-24] MEDS: CALCIUM ACETATE 667 MG CAP PO SCH ×3 (08:14→17:22)
[2017-02-24] MEDS: NIFEdipine (XL) 60 MG TAB PO SCH ×2 (08:14→20:45)
[2017-02-24] MEDS: FLUOXETINE 20 MG CAP PO SCH (08:14)
[2017-02-24] MEDS: LOSARTAN 50 MG TAB PO SCH ×2 (08:15→20:40)
[2017-02-24 08:16] LABS: CALCIUM 8.4 mg/dl (8.4-10.2); CREATININE 4.98 mg/dl (0.44-1.00); POTASSIUM 4.9 mmol/L (3.5-5.1)
[2017-02-24] MEDS: HEPARIN 5,000 UNIT/0.5 ML VIAL SC SCH ×2 (08:16→20:43)
--- NOTE | 2017-02-24 11:06 | CONS ---
Date/Time of Note Date/Time of Note DATE: 02/24/17 TIME: 11:00 Assessment/Plan Assessment/Plan Chief Complaint/Hosp Course IMPRESSION: 1. Bradycardia, significant down to the 30s with probable junctional escape versus ventricular escape with an actual elevated blood pressure in the setting of hyperkalemia. Now improved s/p improvement in K with HD. NL TSH. Trop neg x 3 2. Abnormal electrocardiogram, left bundle branch block. Assess for acute coronary syndrome. 3. Hypertension. 4. End-stage renal disease on hemodialysis. 5. Hyperkalemia, likely cause of patient's bradyarrhythmias.-improved s/p HD with imnproved HR 6. Diabetes mellitus. 7. Anemia. 8. Hyponatremia-improved Recc: -Ok for Tele -Follow K closely -Continue current anti-hypertensives with uptitration as necessary to improve SBP control -Will f/u echo Problems: Consultation Date/Type/Reason Admit Date/Time Feb 22, 2017 at 10:27 Initial Consult Date 02/23/2017 Type of Consultation: cardiology Reason for Consultation Bradycardia Referring Provider: KENZIE BROWNE Exam/Review of Systems Vital Signs Vitals Vital Signs Date Time Temp Pulse Resp B/P Pulse Ox O2 Delivery O2 Flow Rate FiO2 02/24/17 10:00 68 13 151/66 Room Air 02/24/17 09:00 99.6 02/24/17 07:00 90 02/22/17 09:08 21 Intake and Output 02/23/17 02/23/17 02/24/17 15:00 23:00 07:00 Intake Total 185.4 ml Output Total 1300 ml 100 ml Balance -1114.6 ml -100 ml Exam Review of Systems: CONSTITUTIONAL: No fevers, chills. PULMONARY: No sob CARDIOVASCULAR: No chest pain/palpitations GASTROINTESTINAL: No nausea/vomiting. GENITOURINARY: No hematuria/dysuria. MUSCULOSKELETAL: No myagias/arthalgias. PSYCHIATRIC: The patient denies depression. NEUROLOGIC: Mild dizziness Constitutional: alert Psych: no complaints Head: normocephalic ENMT: mucosa pink and moist Neck: jvd (9 cm water), supple Respiratory: clear to auscultation Cardiovascular: regular rate and rhythm Gastrointestinal: non-tender, soft Musculoskeletal: muscle tone (normalk) Extremities: edema (none) Neurological: other (No focal deficits) Results Result Diagram: 02/24/17 0546 02/24/17 0547 Results 24 hrs Laboratory Tests Test 02/23/17 12:22 02/23/17 14:26 02/23/17 15:52 02/23/17 17:45 Bedside Glucose 138 167 173 Sodium Level 133 L Potassium Level 6.7 *H Chloride Level 91 L Carbon Dioxide Level 28 Anion Gap 21 H Blood Urea Nitrogen 62 H Creatinine 6.69 H Glucose Level 139 Calcium Level 7.4 L Phosphorus Level 5.4 H Magnesium Level 2.8 H Albumin 4.0 Test 02/23/17 18:50 02/23/17 22:16 02/24/17 01:00 02/24/17 05:46 Creatine Kinase 67 65 Creatine Kinase Index 1.4 1.6 Creatinine Kinase MB (Mass) 0.93 1.04 Troponin I 0.070 0.078 Thyroid Stimulating Hormone (TSH) 1.230 Bedside Glucose 85 White Blood Count 5.4 # Red Blood Count 2.72 L Hemoglobin 9.0 L Hematocrit 27.9 L Mean Corpuscular Volume 102.6 H Mean Corpuscular Hemoglobin 33.1 H Mean Corpuscular Hemoglobin Concent 32.3 Red Cell Distribution Width 16.0 H Platelet Count 174 Mean Platelet Volume 10.1 Neutrophils % 70.6 Lymphocytes % 10.7 L Monocytes % 11.2 H Eosinophils % 6.4 Basophils % 0.7 Nucleated Red Blood Cells % 0.0 Neutrophils # 3.8 Lymphocytes # 0.6 L Monocytes # 0.6 Eosinophils # 0.4 Basophils # 0.0 Nucleated Red Blood Cells # 0.0 Test 02/24/17 05:47 02/24/17 07:56 Sodium Level 137 Potassium Level 4.9 Chloride Level 94 L Carbon Dioxide Level 32 H Anion Gap 16 Blood Urea Nitrogen 35 H Creatinine 4.98 H Glucose Level 84 Calcium Level 8.4 Total Bilirubin 0.2 Direct Bilirubin 0.00 Indirect Bilirubin 0.2 Aspartate Amino Transf (AST/SGOT) 26 Alanine Aminotransferase (ALT/SGPT) 22 Alkaline Phosphatase 167 H Creatine Kinase 57 Creatine Kinase Index 1.3 Creatinine Kinase MB (Mass) 0.76 Troponin I 0.079 Total Protein 7.4 Albumin 3.6 Globulin 3.80 H Albumin/Globulin Ratio 0.94 Triglycerides Level 66 Cholesterol Level 160 LDL Cholesterol, Calculated 82 HDL Cholesterol 65 Cholesterol/HDL Ratio 2.4 Bedside Glucose 82 Medications Medications Current Medications Dextrose (D50w Syringe) ONCE PRN IV POC BLOOD GLUCOSE <250 MG/DL Last administered on 02/22/17 12:28; Admin Dose 100 ML; Start 02/22/17 at 10:30 Famotidine (Pepcid) 40 mg HS PO Last administered on 02/23/17 21:50; Admin Dose 40 MG; Start 02/22/17 at 21:00 Fluoxetine HCl (Prozac) 20 mg DAILY PO Last administered on 02/24/17 08:14; Admin Dose 20 MG; Start 02/23/17 at 09:00 Hydralazine HCl (Apresoline) 50 mg TID PO Last administered on 02/24/17 08:14 ; Admin Dose 50 MG; Start 02/22/17 at 13:00 Losartan Potassium (Cozaar) 50 mg BID PO Last administered on 02/24/17 08:15; Admin Dose 50 MG; Start 02/22/17 at 21:00 Metoclopramide HCl (Reglan) 5 mg DAILY PRN PO NAUSEA AND/OR VOMITING; Start at 12:30 Multivit/Ca Carb/ B Cmplx/FA/Prenat (Beronica-Morgan) 1 tab DAILY PO Last administered on 02/24/17 08:14; Admin Dose 1 TAB; Start 02/23/17 at 09:00 Nifedipine (Procardia Xl) 60 mg BID PO Last administered on 02/24/17 08:14; Admin Dose 60 MG; Start 02/22/17 at 21:00 Ondansetron HCl (Zofran Tab) 4 mg DAILY PRN PO NAUSEA AND/OR VOMITING; Start 02/22/17 at 12:30 Tramadol HCl (Ultram) 25 mg DAILY PRN PO PAIN Last administered on 02/23/17 08:25; Admin Dose 25 MG; Start 02/22/17 at 12:30 Ondansetron HCl (Zofran Inj) 4 mg Q6H PRN IV NAUSEA AND/OR VOMITING Last administered on 02/24/17 06:14; Admin Dose 4 MG; Start 02/22/17 at 12:30 Acetaminophen (Tylenol Tab) 650 mg Q6H PRN PO PAIN LEVEL 1-3 OR FEVER; Start 02/22/17 at 12:30 Acetaminophen (Tylenol Supp) 650 mg Q6H PRN [place] PAIN LEVEL 1-3 OR FEVER; Start 02/22/17 at 12:30 Docusate Sodium (Colace) 100 mg Q12H PRN PO CONSTIPATION; Start 02/22/17 at 12 :30 Bisacodyl (Dulcolax) 5 mg DAILY PRN PO CONSTIPATION; Start 02/22/17 at 12:30 Heparin Sodium (Porcine) (Heparin (5000 Units/0.5 ml)) 5,000 unit Q12 SC Last administered on 02/24/17 08:16; Admin Dose 5,000 UNIT; Start 02/22/17 at 21:00 Diagnostic Test (Pha) (Accu-Chek) 1 ea 02 XX ; Start 02/23/17 at 02:00 Miscellaneous Information 1 ea NOTE XX ; Start 02/22/17 at 20:30 Glucose (Glutose) 15 gm Q15M PRN PO DECREASED GLUCOSE; Start 02/22/17 at 20:30 Glucose (Glutose) 22.5 gm Q15M PRN PO DECREASED GLUCOSE; Start 02/22/17 at 20: 30 Dextrose (D50w Syringe) 25 ml Q15M PRN IV DECREASED GLUCOSE; Start 02/22/17 at 20:30 Dextrose (D50w Syringe) 50 ml Q15M PRN IV DECREASED GLUCOSE; Start 02/22/17 at 20:30 Glucagon (Glucagen) 1 mg Q15M PRN IM DECREASED GLUCOSE; Start 02/22/17 at 20: 30 Glucose (Glutose) 15 gm Q15M PRN BUCCAL DECREASED GLUCOSE; Start 02/22/17 at 20:30 Hydralazine HCl (Apresoline) 10 mg Q6H PRN IV ELEVATED SYSTOLIC BP Last administered on 02/23/17 01:39; Admin Dose 10 MG; Start 02/23/17 at 01:30 Pantoprazole 40 mg 40 mg DAILY@06 PO ; Start 02/24/17 at 06:00 Dopamine HCl/ Dextrose 250 ml @ 5.475 mls/ hr TITRATE IV Last administered on 02/23/17 19:04; Admin Dose 5.475 MLS/HR; Start 02/23/17 at 18:00 Lorazepam (Ativan) 1 mg TID PRN IV AGITATION/ANXIETY; Start 02/24/17 at 05:00 IAN LAGUNA Feb 24, 2017 11:06
--- NOTE | 2017-02-24 14:01 | PN ---
Date/Time of Note Date/Time of Note DATE: 02/24/17 TIME: 13:59 Assessment/Plan VTE Prophylaxis VTE Prophylaxis Intervention: LMWH, SCD's Lines/Catheters [facility]from [facility] Urinary Cath still in place: No Assessment/Plan Chief Complaint/Hosp Course 1. Hyperkalemia. 2. Arrhythmia. 3. End-stage renal disease. 4, Diabetes mellitus. 5. Hypertension. 6. Anemia, gastrointestinal bleed related. 7. bradycardia 8. Diabetic nephropathy, retinopathy and neuropathy. Problems: Assessment/Plan 1. Transfer to tele 2. continue all medications Subjective 24 Hr Interval Summary Constitutional: improved, no complaints Gastrointestinal: no complaints Skin: no complaints Exam/Review of Systems Vital Signs Vitals Vital Signs Date Time Temp Pulse Resp B/P Pulse Ox O2 Delivery O2 Flow Rate FiO2 02/24/17 13:00 66 16 185/63 100 Nasal Cannula 02/24/17 12:00 98.4 02/22/17 09:08 21 Intake and Output 02/23/17 02/23/17 02/24/17 15:00 23:00 07:00 Intake Total 185.4 ml 0 ml Output Total 1300 ml 100 ml Balance -1114.6 ml -100 ml Exam Constitutional: alert, oriented Respiratory: diminished breath sounds Cardiovascular: other (bradycardia), regular rate and rhythm Results Result Diagram: 02/24/17 0546 02/24/17 0547 Results 24 hrs Laboratory Tests Test 02/23/17 14:26 02/23/17 15:52 02/23/17 17:45 02/23/17 18:50 Bedside Glucose 167 173 Sodium Level 133 L Potassium Level 6.7 *H Chloride Level 91 L Carbon Dioxide Level 28 Anion Gap 21 H Blood Urea Nitrogen 62 H Creatinine 6.69 H Glucose Level 139 Calcium Level 7.4 L Phosphorus Level 5.4 H Magnesium Level 2.8 H Albumin 4.0 Creatine Kinase 67 Creatine Kinase Index 1.4 Creatinine Kinase MB (Mass) 0.93 Troponin I 0.070 Thyroid Stimulating Hormone (TSH) 1.230 Test 02/23/17 22:16 02/24/17 01:00 02/24/17 05:46 02/24/17 05:47 Bedside Glucose 85 Creatine Kinase 65 57 Creatine Kinase Index 1.6 1.3 Creatinine Kinase MB (Mass) 1.04 0.76 Troponin I 0.078 0.079 White Blood Count 5.4 # Red Blood Count 2.72 L Hemoglobin 9.0 L Hematocrit 27.9 L Mean Corpuscular Volume 102.6 H Mean Corpuscular Hemoglobin 33.1 H Mean Corpuscular Hemoglobin Concent 32.3 Red Cell Distribution Width 16.0 H Platelet Count 174 Mean Platelet Volume 10.1 Neutrophils % 70.6 Lymphocytes % 10.7 L Monocytes % 11.2 H Eosinophils % 6.4 Basophils % 0.7 Nucleated Red Blood Cells % 0.0 Neutrophils # 3.8 Lymphocytes # 0.6 L Monocytes # 0.6 Eosinophils # 0.4 Basophils # 0.0 Nucleated Red Blood Cells # 0.0 Sodium Level 137 Potassium Level 4.9 Chloride Level 94 L Carbon Dioxide Level 32 H Anion Gap 16 Blood Urea Nitrogen 35 H Creatinine 4.98 H Glucose Level 84 Calcium Level 8.4 Total Bilirubin 0.2 Direct Bilirubin 0.00 Indirect Bilirubin 0.2 Aspartate Amino Transf (AST/SGOT) 26 Alanine Aminotransferase (ALT/SGPT) 22 Alkaline Phosphatase 167 H Total Protein 7.4 Albumin 3.6 Globulin 3.80 H Albumin/Globulin Ratio 0.94 Triglycerides Level 66 Cholesterol Level 160 LDL Cholesterol, Calculated 82 HDL Cholesterol 65 Cholesterol/HDL Ratio 2.4 Test 02/24/17 07:56 02/24/17 11:16 Bedside Glucose 82 125 Medications Medications Current Medications Dextrose (D50w Syringe) ONCE PRN IV POC BLOOD GLUCOSE <250 MG/DL Last administered on 02/22/17 12:28; Admin Dose 100 ML; Start 02/22/17 at 10:30 Famotidine (Pepcid) 40 mg HS PO Last administered on 02/23/17 21:50; Admin Dose 40 MG; Start 02/22/17 at 21:00 Fluoxetine HCl (Prozac) 20 mg DAILY PO Last administered on 02/24/17 08:14; Admin Dose 20 MG; Start 02/23/17 at 09:00 Losartan Potassium (Cozaar) 50 mg BID PO Last administered on 02/24/17 08:15; Admin Dose 50 MG; Start 02/22/17 at 21:00 Metoclopramide HCl (Reglan) 5 mg DAILY PRN PO NAUSEA AND/OR VOMITING; Start at 12:30 Multivit/Ca Carb/ B Cmplx/FA/Prenat (Beronica-Morgan) 1 tab DAILY PO Last administered on 02/24/17 08:14; Admin Dose 1 TAB; Start 02/23/17 at 09:00 Nifedipine (Procardia Xl) 60 mg BID PO Last administered on 02/24/17 08:14; Admin Dose 60 MG; Start 02/22/17 at 21:00 Ondansetron HCl (Zofran Tab) 4 mg DAILY PRN PO NAUSEA AND/OR VOMITING; Start 02/22/17 at 12:30 Tramadol HCl (Ultram) 25 mg DAILY PRN PO PAIN Last administered on 02/23/17 08:25; Admin Dose 25 MG; Start 02/22/17 at 12:30 Ondansetron HCl (Zofran Inj) 4 mg Q6H PRN IV NAUSEA AND/OR VOMITING Last administered on 02/24/17 06:14; Admin Dose 4 MG; Start 02/22/17 at 12:30 Acetaminophen (Tylenol Tab) 650 mg Q6H PRN PO PAIN LEVEL 1-3 OR FEVER; Start 02/22/17 at 12:30 Acetaminophen (Tylenol Supp) 650 mg Q6H PRN [place] PAIN LEVEL 1-3 OR FEVER; Start 02/22/17 at 12:30 Docusate Sodium (Colace) 100 mg Q12H PRN PO CONSTIPATION; Start 02/22/17 at 12 :30 Bisacodyl (Dulcolax) 5 mg DAILY PRN PO CONSTIPATION; Start 02/22/17 at 12:30 Heparin Sodium (Porcine) (Heparin (5000 Units/0.5 ml)) 5,000 unit Q12 SC Last administered on 02/24/17 08:16; Admin Dose 5,000 UNIT; Start 02/22/17 at 21:00 Diagnostic Test (Pha) (Accu-Chek) 1 ea 02 XX ; Start 02/23/17 at 02:00 Miscellaneous Information 1 ea NOTE XX ; Start 02/22/17 at 20:30 Glucose (Glutose) 15 gm Q15M PRN PO DECREASED GLUCOSE; Start 02/22/17 at 20:30 Glucose (Glutose) 22.5 gm Q15M PRN PO DECREASED GLUCOSE; Start 02/22/17 at 20: 30 Dextrose (D50w Syringe) 25 ml Q15M PRN IV DECREASED GLUCOSE; Start 02/22/17 at 20:30 Dextrose (D50w Syringe) 50 ml Q15M PRN IV DECREASED GLUCOSE; Start 02/22/17 at 20:30 Glucagon (Glucagen) 1 mg Q15M PRN IM DECREASED GLUCOSE; Start 02/22/17 at 20: 30 Glucose (Glutose) 15 gm Q15M PRN BUCCAL DECREASED GLUCOSE; Start 02/22/17 at 20:30 Hydralazine HCl (Apresoline) 10 mg Q6H PRN IV ELEVATED SYSTOLIC BP Last administered on 02/23/17 01:39; Admin Dose 10 MG; Start 02/23/17 at 01:30 Pantoprazole 40 mg 40 mg DAILY@06 PO ; Start 02/24/17 at 06:00 Dopamine HCl/ Dextrose 250 ml @ 5.475 mls/ hr TITRATE IV Last administered on 02/23/17 19:04; Admin Dose 5.475 MLS/HR; Start 02/23/17 at 18:00 Lorazepam (Ativan) 1 mg TID PRN IV AGITATION/ANXIETY; Start 02/24/17 at 05:00 Hydralazine HCl (Apresoline) 75 mg TID PO Last administered on 02/24/17 12:33 ; Admin Dose 75 MG; Start 02/24/17 at 13:00 MAGNO DICK Feb 24, 2017 14:01
--- NOTE | 2017-02-24 16:04 | RADRPT ---
Echocardiogram Report Patient Name: DENYS PATEL Gender: Female Date: 1945 Study Date: 24-Feb-2017 Stunt Driver: Christoph Ramirez RDCS Location: [address] [place] [address]. Physician: IAN QUILES Quality: Good Procedures: Transthoracic echocardiogram with complete 2D, M-Mode, and doppler examination. Indications: Bradycardia. 2D/M Mode Doppler Measurement Value Normal Ranges Measurement Value Normal Ranges LVIDd 2D 4.7 3.5 - 5.6 cm LUBNA Vmax 1.4 cm2 LVIDs 2D 3.1 2.1 - 4.1 cm LUBNA VTI 1.4 cm2 LVPWd 2D 1.0 0.6 - 1.1 cm AV Mean José 1.3 m/sec IVSd 2D 1.1 0.6 - 1.1 cm AV Mean PG 8.2 mmHg AoR Diam 2D 2.5 2.0 - 3.7 cm AV Peak José 2.1 m/sec EDV 2D 102.6 cm3 AV Peak PG 17.3 mmHg ESV 2D 29.8 cm3 AV VTI 46.8 cm LA Dimen 2D 3.9 2.3 - 4.0 cm LVOT Mean José 0.8 m/sec LVOT Diam 1.8 cm LVOT Mean PG 2.7 mmHg LVOT Peak José 1.1 m/sec LVOT Peak PG 5.1 mmHg LVOT VTI 29.4 cm MV E Peak José 1.1 m/sec MV A Peak José 1.2 m/sec MV E/A 0.9 MV Decel Time 186 msec MV Decel Will 6 MV E/A 0.9 TR Peak José 4.0 m/sec TR Peak PG 63.6 mmHg RVSP 67.0 mmHg Findings Left Ventricle: Normal left ventricular systolic function. Normal left ventricular cavity size. Mild concentric left ventricular hypertrophy. Ejection fraction is visually estimated at 55 %. Tissue Doppler/Mitral Doppler indices are consistent with impaired relaxation (Stage I diastolic dysfunction). Right Ventricle: Normal right ventricular size. Normal right ventricular systolic function. Left Atrium: There is mild enlargement of left atrium. Right Atrium: The right atrium is normal in size. Mitral Valve: Mitral valve leaflets appear mildly thickened. Mild mitral annular calcification. Mild mitral valve regurgitation. Aortic Valve: Mild aortic stenosis. Aortic valve Max velocity 2.09 m/sec. Max PG 17.50 mmHg. Mean PG 8.20 mmHg. Aortic valve area 1.60 cm2. Trace aortic valve regurgitation. Tricuspid Valve: Estimated peak PA systolic pressure 67 mmHg. There is mild tricuspid regurgitation. Pulmonic Valve: Normal pulmonic valve appearance. Pericardium: Normal pericardium with no significant pericardial effusion. Aorta: Normal aortic root. IVC: Normal size and normal respiratory collapse consistent with normal right atrial pressure. Conclusions 1.Normal left ventricular systolic function. Normal left ventricular cavity size. Mild concentric left ventricular hypertrophy. Ejection fraction is visually estimated at 55 %. Tissue Doppler/Mitral Doppler indices are consistent with impaired relaxation (Stage I diastolic dysfunction). 2.There is mild enlargement of left atrium. 3.Mitral valve leaflets appear mildly thickened. Mild mitral annular calcification. Mild mitral valve regurgitation. 4.Mild aortic stenosis. Trace aortic valve regurgitation. 5.Estimated peak PA systolic pressure 67 mmHg. There is mild tricuspid regurgitation. Electronically Signed By: Ian Quiles 24-Feb-2017 16:04:09 0800 Patient Name: DENYS PATEL Study Date: 24-Feb-2017 [id number]
[2017-02-24] MEDS: FAMOTIDINE 20 MG TAB PO SCH (20:39)
[2017-02-25] VITALS (18 sets, daily range): BP systolic 142–195; BP diastolic 64–79; PULSE 52–72; RESP 16–19
[2017-02-25] MEDS: ACCU-CHEK XX SCH (02:00)
[2017-02-25] MEDS: PANTOPRAZOLE (EC) 40 MG TAB PO SCH (05:33)
[2017-02-25] MEDS: INSULIN ASPART [NOVOLOG] 3 ML PEN SC SCH ×4 (08:00→20:53)
[2017-02-25] MEDS: CALCIUM ACETATE 667 MG CAP PO SCH ×3 (08:14→17:20)
[2017-02-25] MEDS: MULTIVIT/CA CARB/B CMPLX/FA TAB PO SCH (08:14)
[2017-02-25] MEDS: NIFEdipine (XL) 60 MG TAB PO SCH ×2 (08:14→20:53)
[2017-02-25] MEDS: LOSARTAN 50 MG TAB PO SCH ×2 (08:15→20:52)
[2017-02-25] MEDS: HEPARIN 5,000 UNIT/0.5 ML VIAL SC SCH ×2 (08:21→21:01)
[2017-02-25] MEDS: FLUOXETINE 20 MG CAP PO SCH (10:00)
[2017-02-25] MEDS: ACETAMINOPHEN 325 MG TAB PO PRN (10:59)
--- NOTE | 2017-02-25 13:33 | PN ---
Date/Time of Note Date/Time of Note DATE: 02/25/17 TIME: 13:32 Assessment/Plan VTE Prophylaxis VTE Prophylaxis Intervention: SCD's Lines/Catheters [facility] Urinary Cath still in place: No Assessment/Plan Chief Complaint/Hosp Course 1. Hyperkalemia. 2. Arrhythmia. 3. End-stage renal disease. 4, Diabetes mellitus. 5. Hypertension. 6. Anemia, gastrointestinal bleed related. 7. bradycardia 8. Diabetic nephropathy, retinopathy and neuropathy. Problems: Assessment/Plan 1. Continue telemetry 2. Continue current care Subjective 24 Hr Interval Summary Constitutional: improved, no complaints Musculoskeletal: back pain Exam/Review of Systems Vital Signs Vitals Vital Signs Date Time Temp Pulse Resp B/P Pulse Ox O2 Delivery O2 Flow Rate FiO2 02/25/17 12:24 98.0 65 19 159/65 99 02/25/17 00:10 Room Air 02/22/17 09:08 21 Intake and Output 02/24/17 02/24/17 02/25/17 15:00 23:00 07:00 Intake Total 770 ml 950 ml 100 ml Output Total 2500 ml Balance 770 ml -1550 ml 100 ml Exam Constitutional: alert, oriented Neck: supple Respiratory: diminished breath sounds Cardiovascular: regular rate and rhythm Results Result Diagram: 02/24/17 0546 02/24/17 0547 Results 24 hrs Laboratory Tests Test 02/24/17 17:18 02/24/17 20:38 02/25/17 08:09 02/25/17 12:06 Bedside Glucose 208 91 90 166 Medications Medications Current Medications Famotidine (Pepcid) 40 mg HS PO Last administered on 02/24/17 20:39; Admin Dose 40 MG; Start 02/22/17 at 21:00 Fluoxetine HCl (Prozac) 20 mg DAILY PO Last administered on 02/25/17 10:00; Admin Dose 20 MG; Start 02/23/17 at 09:00 Losartan Potassium (Cozaar) 50 mg BID PO Last administered on 02/25/17 08:15; Admin Dose 50 MG; Start 02/22/17 at 21:00 Metoclopramide HCl (Reglan) 5 mg DAILY PRN PO NAUSEA AND/OR VOMITING; Start at 12:30 Multivit/Ca Carb/ B Cmplx/FA/Prenat (Beronica-Morgan) 1 tab DAILY PO Last administered on 02/25/17 08:14; Admin Dose 1 TAB; Start 02/23/17 at 09:00 Nifedipine (Procardia Xl) 60 mg BID PO Last administered on 02/25/17 08:14; Admin Dose 60 MG; Start 02/22/17 at 21:00 Ondansetron HCl (Zofran Tab) 4 mg DAILY PRN PO NAUSEA AND/OR VOMITING; Start 02/22/17 at 12:30 Tramadol HCl (Ultram) 25 mg DAILY PRN PO PAIN Last administered on 02/23/17 08:25; Admin Dose 25 MG; Start 02/22/17 at 12:30 Ondansetron HCl (Zofran Inj) 4 mg Q6H PRN IV NAUSEA AND/OR VOMITING Last administered on 02/24/17 06:14; Admin Dose 4 MG; Start 02/22/17 at 12:30 Acetaminophen (Tylenol Tab) 650 mg Q6H PRN PO PAIN LEVEL 1-3 OR FEVER Last administered on 02/25/17 10:59; Admin Dose 650 MG; Start 02/22/17 at 12:30 Acetaminophen (Tylenol Supp) 650 mg Q6H PRN [place] PAIN LEVEL 1-3 OR FEVER; Start 02/22/17 at 12:30 Docusate Sodium (Colace) 100 mg Q12H PRN PO CONSTIPATION; Start 02/22/17 at 12 :30 Bisacodyl (Dulcolax) 5 mg DAILY PRN PO CONSTIPATION; Start 02/22/17 at 12:30 Heparin Sodium (Porcine) (Heparin (5000 Units/0.5 ml)) 5,000 unit Q12 SC Last administered on 02/25/17 08:21; Admin Dose 5,000 UNIT; Start 02/22/17 at 21:00 Diagnostic Test (Pha) (Accu-Chek) 1 ea 02 XX ; Start 02/23/17 at 02:00 Glucose (Glutose) 15 gm Q15M PRN PO DECREASED GLUCOSE; Start 02/22/17 at 20:30 Dextrose (D50w Syringe) 25 ml Q15M PRN IV DECREASED GLUCOSE; Start 02/22/17 at 20:30 Dextrose (D50w Syringe) 50 ml Q15M PRN IV DECREASED GLUCOSE; Start 02/22/17 at 20:30 Glucagon (Glucagen) 1 mg Q15M PRN IM DECREASED GLUCOSE; Start 02/22/17 at 20: 30 Hydralazine HCl (Apresoline) 10 mg Q6H PRN IV ELEVATED SYSTOLIC BP Last administered on 02/23/17 01:39; Admin Dose 10 MG; Start 02/23/17 at 01:30 Pantoprazole (Protonix Tab) 40 mg DAILY@06 PO Last administered on 02/25/17 05 :33; Admin Dose 40 MG; Start 02/24/17 at 06:00 Lorazepam (Ativan) 1 mg TID PRN IV AGITATION/ANXIETY; Start 02/24/17 at 05:00 Hydralazine HCl (Apresoline) 75 mg TID PO Last administered on 02/25/17 12:06 ; Admin Dose 75 MG; Start 02/24/17 at 13:00 MAGNO DICK Feb 25, 2017 13:33
[2017-02-25 14:49] LABS: CALCIUM 9.1 mg/dl (8.4-10.2); CREATININE 3.17 mg/dl (0.44-1.00); POTASSIUM 3.4 mmol/L (3.5-5.1)
--- NOTE | 2017-02-25 15:40 | CONS ---
Date/Time of Note Date/Time of Note DATE: 02/25/17 TIME: 15:38 Assessment/Plan Assessment/Plan Chief Complaint/Hosp Course IMPRESSION: 1. Bradycardia, significant down to the 30s with probable junctional escape versus ventricular escape with an actual elevated blood pressure in the setting of hyperkalemia. Now improved s/p improvement in K with HD. NL TSH. Trop neg x 3 2. Abnormal electrocardiogram, left bundle branch block. Assess for acute coronary syndrome. 3. Hypertension. 4. End-stage renal disease on hemodialysis. 5. Hyperkalemia, likely cause of patient's bradyarrhythmias.-improved s/p HD with imnproved HR 6. Diabetes mellitus. 7. Anemia. 8. Hyponatremia-improved Recc: -ContinueTele -Follow K closely -Continue current anti-hypertensives with further uptitration as necessary to improve SBP control -HD for volume removal Problems: Consultation Date/Type/Reason Admit Date/Time Feb 22, 2017 at 10:27 Initial Consult Date 02/23/2017 Type of Consultation: cardiology Reason for Consultation HTN Referring Provider: KENZIE BROWNE MD Exam/Review of Systems Vital Signs Vitals Vital Signs Date Time Temp Pulse Resp B/P Pulse Ox O2 Delivery O2 Flow Rate FiO2 02/25/17 12:24 98.0 65 19 159/65 99 02/25/17 00:10 Room Air 02/22/17 09:08 21 Intake and Output 02/24/17 02/24/17 02/25/17 15:00 23:00 07:00 Intake Total 770 ml 950 ml 100 ml Output Total 2500 ml Balance 770 ml -1550 ml 100 ml Exam Review of Systems: CONSTITUTIONAL: No fevers, chills. PULMONARY: No sob CARDIOVASCULAR: No chest pain/palpitations GASTROINTESTINAL: No nausea/vomiting. GENITOURINARY: No hematuria/dysuria. MUSCULOSKELETAL: No myagias/arthalgias. PSYCHIATRIC: The patient denies depression. NEUROLOGIC: No weakness Constitutional: alert, oriented Psych: no complaints Head: normocephalic Neck: supple Respiratory: diminished breath sounds Cardiovascular: regular rate and rhythm Musculoskeletal: muscle tone (normal) Extremities: edema (nor) Neurological: other (No focal deficits) Results Result Diagram: 02/24/17 0546 02/25/17 1350 Results 24 hrs Laboratory Tests Test 02/24/17 17:18 02/24/17 20:38 02/25/17 08:09 02/25/17 12:06 Bedside Glucose 208 91 90 166 Test 02/25/17 13:50 Sodium Level 134 L Potassium Level 3.4 L Chloride Level 92 L Carbon Dioxide Level 32 H Anion Gap 13 Blood Urea Nitrogen 15 # Creatinine 3.17 #H Glucose Level 166 Calcium Level 9.1 Medications Medications Current Medications Famotidine (Pepcid) 40 mg HS PO Last administered on 02/24/17 20:39; Admin Dose 40 MG; Start 02/22/17 at 21:00 Fluoxetine HCl (Prozac) 20 mg DAILY PO Last administered on 02/25/17 10:00; Admin Dose 20 MG; Start 02/23/17 at 09:00 Losartan Potassium (Cozaar) 50 mg BID PO Last administered on 02/25/17 08:15; Admin Dose 50 MG; Start 02/22/17 at 21:00 Metoclopramide HCl (Reglan) 5 mg DAILY PRN PO NAUSEA AND/OR VOMITING; Start at 12:30 Multivit/Ca Carb/ B Cmplx/FA/Prenat (Beronica-Morgan) 1 tab DAILY PO Last administered on 02/25/17 08:14; Admin Dose 1 TAB; Start 02/23/17 at 09:00 Nifedipine (Procardia Xl) 60 mg BID PO Last administered on 02/25/17 08:14; Admin Dose 60 MG; Start 02/22/17 at 21:00 Ondansetron HCl (Zofran Tab) 4 mg DAILY PRN PO NAUSEA AND/OR VOMITING; Start 02/22/17 at 12:30 Tramadol HCl (Ultram) 25 mg DAILY PRN PO PAIN Last administered on 02/23/17 08:25; Admin Dose 25 MG; Start 02/22/17 at 12:30 Ondansetron HCl (Zofran Inj) 4 mg Q6H PRN IV NAUSEA AND/OR VOMITING Last administered on 02/24/17 06:14; Admin Dose 4 MG; Start 02/22/17 at 12:30 Acetaminophen (Tylenol Tab) 650 mg Q6H PRN PO PAIN LEVEL 1-3 OR FEVER Last administered on 02/25/17 10:59; Admin Dose 650 MG; Start 02/22/17 at 12:30 Acetaminophen (Tylenol Supp) 650 mg Q6H PRN [place] PAIN LEVEL 1-3 OR FEVER; Start 02/22/17 at 12:30 Docusate Sodium (Colace) 100 mg Q12H PRN PO CONSTIPATION; Start 02/22/17 at 12 :30 Bisacodyl (Dulcolax) 5 mg DAILY PRN PO CONSTIPATION; Start 02/22/17 at 12:30 Heparin Sodium (Porcine) (Heparin (5000 Units/0.5 ml)) 5,000 unit Q12 SC Last administered on 02/25/17 08:21; Admin Dose 5,000 UNIT; Start 02/22/17 at 21:00 Diagnostic Test (Pha) (Accu-Chek) 1 ea 02 XX ; Start 02/23/17 at 02:00 Glucose (Glutose) 15 gm Q15M PRN PO DECREASED GLUCOSE; Start 02/22/17 at 20:30 Dextrose (D50w Syringe) 25 ml Q15M PRN IV DECREASED GLUCOSE; Start 02/22/17 at 20:30 Dextrose (D50w Syringe) 50 ml Q15M PRN IV DECREASED GLUCOSE; Start 02/22/17 at 20:30 Glucagon (Glucagen) 1 mg Q15M PRN IM DECREASED GLUCOSE; Start 02/22/17 at 20: 30 Hydralazine HCl (Apresoline) 10 mg Q6H PRN IV ELEVATED SYSTOLIC BP Last administered on 02/23/17 01:39; Admin Dose 10 MG; Start 02/23/17 at 01:30 Pantoprazole (Protonix Tab) 40 mg DAILY@06 PO Last administered on 02/25/17 05 :33; Admin Dose 40 MG; Start 02/24/17 at 06:00 Lorazepam (Ativan) 1 mg TID PRN IV AGITATION/ANXIETY; Start 02/24/17 at 05:00 Hydralazine HCl (Apresoline) 75 mg TID PO Last administered on 02/25/17 12:06 ; Admin Dose 75 MG; Start 02/24/17 at 13:00 IAN LAGUNA Feb 25, 2017 15:40
[2017-02-25] MEDS: FAMOTIDINE 20 MG TAB PO SCH (20:51)
[2017-02-26] VITALS (13 sets, daily range): BP systolic 130–150; BP diastolic 60–69; PULSE 59–62; RESP 16–20
[2017-02-26] MEDS: ACCU-CHEK XX SCH (02:00)
[2017-02-26] MEDS: PANTOPRAZOLE (EC) 40 MG TAB PO SCH (06:21)
[2017-02-26] MEDS: INSULIN ASPART [NOVOLOG] 3 ML PEN SC SCH ×4 (08:00→21:00)
[2017-02-26] MEDS: MULTIVIT/CA CARB/B CMPLX/FA TAB PO SCH (08:15)
[2017-02-26] MEDS: CALCIUM ACETATE 667 MG CAP PO SCH ×3 (08:15→17:14)
[2017-02-26] MEDS: FLUOXETINE 20 MG CAP PO SCH (08:15)
[2017-02-26] MEDS: LOSARTAN 50 MG TAB PO SCH ×2 (08:15→21:12)
[2017-02-26] MEDS: NIFEdipine (XL) 60 MG TAB PO SCH ×2 (08:17→21:13)
[2017-02-26] MEDS: ACETAMINOPHEN 325 MG TAB PO PRN ×2 (08:21→15:55)
[2017-02-26] MEDS: HEPARIN 5,000 UNIT/0.5 ML VIAL SC SCH ×2 (08:32→21:21)
--- NOTE | 2017-02-26 13:49 | PN ---
Date/Time of Note Date/Time of Note DATE: 02/26/17 TIME: 13:48 Assessment/Plan VTE Prophylaxis VTE Prophylaxis Intervention: LMWH Lines/Catheters IV Catheter Type (from [facility]): [place] [facility] Urinary Cath still in place: No Assessment/Plan Chief Complaint/Hosp Course 1. Hyperkalemia. 2. Arrhythmia. 3. End-stage renal disease. 4, Diabetes mellitus. 5. Hypertension. 6. Anemia, gastrointestinal bleed related. 7. bradycardia 8. Diabetic nephropathy, retinopathy and neuropathy. Problems: Assessment/Plan 1. continue HD 2. continue current regime Subjective 24 Hr Interval Summary Constitutional: improved, no complaints Exam/Review of Systems Vital Signs Vitals Vital Signs Date Time Temp Pulse Resp B/P Pulse Ox O2 Delivery O2 Flow Rate FiO2 02/26/17 12:26 98.1 60 16 145/63 96 02/25/17 00:10 Room Air 02/22/17 09:08 21 Intake and Output 02/25/17 02/25/17 02/26/17 15:00 23:00 07:00 Intake Total 500 ml 300 ml 100 ml Output Total 2500 ml Balance -2000 ml 300 ml 100 ml Exam Constitutional: alert, oriented ENMT: nl external ears & nose Neck: supple Respiratory: clear to auscultation Cardiovascular: regular rate and rhythm Gastrointestinal: soft Results Result Diagram: 02/24/17 0546 02/25/17 1350 Results 24 hrs Laboratory Tests Test 02/25/17 13:50 02/25/17 17:21 02/25/17 20:47 02/26/17 08:18 Sodium Level 134 L Potassium Level 3.4 L Chloride Level 92 L Carbon Dioxide Level 32 H Anion Gap 13 Blood Urea Nitrogen 15 # Creatinine 3.17 #H Glucose Level 166 Calcium Level 9.1 Bedside Glucose 204 120 110 Test 02/26/17 12:19 Bedside Glucose 184 Medications Medications Current Medications Famotidine (Pepcid) 40 mg HS PO Last administered on 02/25/17 20:51; Admin Dose 40 MG; Start 02/22/17 at 21:00 Fluoxetine HCl (Prozac) 20 mg DAILY PO Last administered on 02/26/17 08:15; Admin Dose 20 MG; Start 02/23/17 at 09:00 Losartan Potassium (Cozaar) 50 mg BID PO Last administered on 02/26/17 08:15; Admin Dose 50 MG; Start 02/22/17 at 21:00 Metoclopramide HCl (Reglan) 5 mg DAILY PRN PO NAUSEA AND/OR VOMITING; Start at 12:30 Multivit/Ca Carb/ B Cmplx/FA/Prenat (Beronica-Morgan) 1 tab DAILY PO Last administered on 02/26/17 08:15; Admin Dose 1 TAB; Start 02/23/17 at 09:00 Nifedipine (Procardia Xl) 60 mg BID PO Last administered on 02/26/17 08:17; Admin Dose 60 MG; Start 02/22/17 at 21:00 Ondansetron HCl (Zofran Tab) 4 mg DAILY PRN PO NAUSEA AND/OR VOMITING; Start 02/22/17 at 12:30 Tramadol HCl (Ultram) 25 mg DAILY PRN PO PAIN Last administered on 02/23/17 08:25; Admin Dose 25 MG; Start 02/22/17 at 12:30 Ondansetron HCl (Zofran Inj) 4 mg Q6H PRN IV NAUSEA AND/OR VOMITING Last administered on 02/24/17 06:14; Admin Dose 4 MG; Start 02/22/17 at 12:30 Acetaminophen (Tylenol Tab) 650 mg Q6H PRN PO PAIN LEVEL 1-3 OR FEVER Last administered on 02/26/17 08:21; Admin Dose 650 MG; Start 02/22/17 at 12:30 Acetaminophen (Tylenol Supp) 650 mg Q6H PRN [place] PAIN LEVEL 1-3 OR FEVER; Start 02/22/17 at 12:30 Docusate Sodium (Colace) 100 mg Q12H PRN PO CONSTIPATION; Start 02/22/17 at 12 :30 Bisacodyl (Dulcolax) 5 mg DAILY PRN PO CONSTIPATION Last administered on 08:14; Admin Dose 5 MG; Start 02/22/17 at 12:30 Heparin Sodium (Porcine) (Heparin (5000 Units/0.5 ml)) 5,000 unit Q12 SC Last administered on 02/26/17 08:32; Admin Dose 5,000 UNIT; Start 02/22/17 at 21:00 Diagnostic Test (Pha) (Accu-Chek) 1 ea 02 XX ; Start 02/23/17 at 02:00 Glucose (Glutose) 15 gm Q15M PRN PO DECREASED GLUCOSE; Start 02/22/17 at 20:30 Dextrose (D50w Syringe) 25 ml Q15M PRN IV DECREASED GLUCOSE; Start 02/22/17 at 20:30 Dextrose (D50w Syringe) 50 ml Q15M PRN IV DECREASED GLUCOSE; Start 02/22/17 at 20:30 Glucagon (Glucagen) 1 mg Q15M PRN IM DECREASED GLUCOSE; Start 02/22/17 at 20: 30 Hydralazine HCl (Apresoline) 10 mg Q6H PRN IV ELEVATED SYSTOLIC BP Last administered on 02/23/17 01:39; Admin Dose 10 MG; Start 02/23/17 at 01:30 Pantoprazole (Protonix Tab) 40 mg DAILY@06 PO Last administered on 02/26/17 06 :21; Admin Dose 40 MG; Start 02/24/17 at 06:00 Lorazepam (Ativan) 1 mg TID PRN IV AGITATION/ANXIETY; Start 02/24/17 at 05:00 Hydralazine HCl (Apresoline) 100 mg TID PO Last administered on 02/26/17 12:18 ; Admin Dose 100 MG; Start 02/25/17 at 21:00 MAGNO DICK Feb 26, 2017 13:49
--- NOTE | 2017-02-26 14:38 | CONS ---
Date/Time of Note Date/Time of Note DATE: 02/26/17 TIME: 14:36 Assessment/Plan Assessment/Plan Chief Complaint/Hosp Course IMPRESSION: 1. Bradycardia, significant down to the 30s with probable junctional escape versus ventricular escape with an actual elevated blood pressure in the setting of hyperkalemia. Now improved s/p improvement in K with HD and no recurrent sig shannen. NL TSH. Trop neg x 3 2. Abnormal electrocardiogram, left bundle branch block. Assess for acute coronary syndrome. 3. Hypertension. 4. End-stage renal disease on hemodialysis. 5. Hyperkalemia, likely cause of patient's bradyarrhythmias.-improved s/p HD with imnproved HR 6. Diabetes mellitus. 7. Anemia. 8. Hyponatremia-improved Recc: -Tele -Follow K closely -Continue current anti-hypertensives and will add cardura to improve BP overall -HD for volume removal Problems: Consultation Date/Type/Reason Admit Date/Time Feb 22, 2017 at 10:27 Initial Consult Date 02/23/2017 Type of Consultation: cardiology Reason for Consultation Bradycardia Referring Provider: KENZIE BROWNE MD Exam/Review of Systems Vital Signs Vitals Vital Signs Date Time Temp Pulse Resp B/P Pulse Ox O2 Delivery O2 Flow Rate FiO2 02/26/17 12:26 98.1 60 16 145/63 96 02/25/17 00:10 Room Air 02/22/17 09:08 21 Intake and Output 02/25/17 02/25/17 02/26/17 15:00 23:00 07:00 Intake Total 500 ml 300 ml 100 ml Output Total 2500 ml Balance -2000 ml 300 ml 100 ml Exam Review of Systems: CONSTITUTIONAL: No fevers, chills. PULMONARY: No sob CARDIOVASCULAR: No chest pain/palpitations GASTROINTESTINAL: No nausea/vomiting. GENITOURINARY: No hematuria/dysuria. MUSCULOSKELETAL: No myagias/arthalgias. PSYCHIATRIC: The patient denies depression. NEUROLOGIC: No weakness Constitutional: alert, oriented Psych: no complaints Head: normocephalic ENMT: mucosa pink and moist Neck: jvd (9 cm water), supple Respiratory: clear to auscultation Cardiovascular: regular rate and rhythm Gastrointestinal: non-tender, soft Musculoskeletal: muscle tone (normal) Extremities: edema (none) Neurological: other (No focal deficits) Results Result Diagram: 02/24/17 0546 02/25/17 1350 Results 24 hrs Laboratory Tests Test 02/25/17 17:21 02/25/17 20:47 02/26/17 08:18 02/26/17 12:19 Bedside Glucose 204 120 110 184 Medications Medications Current Medications Famotidine (Pepcid) 40 mg HS PO Last administered on 02/25/17 20:51; Admin Dose 40 MG; Start 02/22/17 at 21:00 Fluoxetine HCl (Prozac) 20 mg DAILY PO Last administered on 02/26/17 08:15; Admin Dose 20 MG; Start 02/23/17 at 09:00 Losartan Potassium (Cozaar) 50 mg BID PO Last administered on 02/26/17 08:15; Admin Dose 50 MG; Start 02/22/17 at 21:00 Metoclopramide HCl (Reglan) 5 mg DAILY PRN PO NAUSEA AND/OR VOMITING; Start at 12:30 Multivit/Ca Carb/ B Cmplx/FA/Prenat (Beronica-Morgan) 1 tab DAILY PO Last administered on 02/26/17 08:15; Admin Dose 1 TAB; Start 02/23/17 at 09:00 Nifedipine (Procardia Xl) 60 mg BID PO Last administered on 02/26/17 08:17; Admin Dose 60 MG; Start 02/22/17 at 21:00 Ondansetron HCl (Zofran Tab) 4 mg DAILY PRN PO NAUSEA AND/OR VOMITING; Start 02/22/17 at 12:30 Tramadol HCl (Ultram) 25 mg DAILY PRN PO PAIN Last administered on 02/23/17 08:25; Admin Dose 25 MG; Start 02/22/17 at 12:30 Ondansetron HCl (Zofran Inj) 4 mg Q6H PRN IV NAUSEA AND/OR VOMITING Last administered on 02/24/17 06:14; Admin Dose 4 MG; Start 02/22/17 at 12:30 Acetaminophen (Tylenol Tab) 650 mg Q6H PRN PO PAIN LEVEL 1-3 OR FEVER Last administered on 02/26/17 08:21; Admin Dose 650 MG; Start 02/22/17 at 12:30 Acetaminophen (Tylenol Supp) 650 mg Q6H PRN [place] PAIN LEVEL 1-3 OR FEVER; Start 02/22/17 at 12:30 Docusate Sodium (Colace) 100 mg Q12H PRN PO CONSTIPATION; Start 02/22/17 at 12 :30 Bisacodyl (Dulcolax) 5 mg DAILY PRN PO CONSTIPATION Last administered on 08:14; Admin Dose 5 MG; Start 02/22/17 at 12:30 Heparin Sodium (Porcine) (Heparin (5000 Units/0.5 ml)) 5,000 unit Q12 SC Last administered on 02/26/17 08:32; Admin Dose 5,000 UNIT; Start 02/22/17 at 21:00 Diagnostic Test (Pha) (Accu-Chek) 1 ea 02 XX ; Start 02/23/17 at 02:00 Glucose (Glutose) 15 gm Q15M PRN PO DECREASED GLUCOSE; Start 02/22/17 at 20:30 Dextrose (D50w Syringe) 25 ml Q15M PRN IV DECREASED GLUCOSE; Start 02/22/17 at 20:30 Dextrose (D50w Syringe) 50 ml Q15M PRN IV DECREASED GLUCOSE; Start 02/22/17 at 20:30 Glucagon (Glucagen) 1 mg Q15M PRN IM DECREASED GLUCOSE; Start 02/22/17 at 20: 30 Hydralazine HCl (Apresoline) 10 mg Q6H PRN IV ELEVATED SYSTOLIC BP Last administered on 02/23/17 01:39; Admin Dose 10 MG; Start 02/23/17 at 01:30 Pantoprazole (Protonix Tab) 40 mg DAILY@06 PO Last administered on 02/26/17 06 :21; Admin Dose 40 MG; Start 02/24/17 at 06:00 Lorazepam (Ativan) 1 mg TID PRN IV AGITATION/ANXIETY; Start 02/24/17 at 05:00 Hydralazine HCl (Apresoline) 100 mg TID PO Last administered on 02/26/17 12:18 ; Admin Dose 100 MG; Start 02/25/17 at 21:00 IAN LAGUNA Feb 26, 2017 14:38
[2017-02-26] MEDS: DOXAZOSIN 2 MG TAB PO SCH (21:12)
[2017-02-26] MEDS: FAMOTIDINE 20 MG TAB PO SCH (21:13)
[2017-02-27] VITALS (17 sets, daily range): BP systolic 111–154; BP diastolic 55–72; PULSE 57–64; RESP 16–20
[2017-02-27] MEDS: ACCU-CHEK XX SCH (02:00)
[2017-02-27] MEDS: PANTOPRAZOLE (EC) 40 MG TAB PO SCH (06:55)
[2017-02-27 07:51] LABS: ALBUMIN 3.6 g/dl (3.3-4.9); ALBUMIN/GLOBULIN RATIO 0.97; CREATININE 6.97 mg/dl (0.44-1.00); POTASSIUM 4.3 mmol/L (3.5-5.1); TOTAL PROTEIN 7.3 g/dl (6.1-8.1)
[2017-02-27] MEDS: INSULIN ASPART [NOVOLOG] 3 ML PEN SC SCH ×4 (08:00→21:00)
[2017-02-27] MEDS: LOSARTAN 50 MG TAB PO SCH ×2 (09:00→21:02)
[2017-02-27] MEDS: HEPARIN 5,000 UNIT/0.5 ML VIAL SC SCH ×2 (09:00→21:05)
[2017-02-27] MEDS: NIFEdipine (XL) 60 MG TAB PO SCH ×2 (09:00→21:01)
[2017-02-27] MEDS: CALCIUM ACETATE 667 MG CAP PO SCH ×3 (09:31→17:34)
[2017-02-27] MEDS: FLUOXETINE 20 MG CAP PO SCH (09:37)
[2017-02-27] MEDS: MULTIVIT/CA CARB/B CMPLX/FA TAB PO SCH (09:37)
[2017-02-27] MEDS: ACETAMINOPHEN 325 MG TAB PO PRN ×3 (09:38→17:50)
[2017-02-27] MEDS: traMADol 50 MG TAB PO PRN (11:43)
--- NOTE | 2017-02-27 13:17 | RADRPT ---
Vent Rate: 53 bpm RR Interval: 0 msec [place] Interval: 80 msec QRS Duration: 132 msec QT Interval: 534 msec QTC Interval: 501 msec P-R-T [place]: 0 - 23 - 118 degrees Sinus bradycardia with short [place] Left bundle branch block Abnormal ECG Electronically Signed By: Burt Jenkins [id number]
--- NOTE | 2017-02-27 13:21 | RADRPT ---
Vent Rate: 65 bpm RR Interval: 0 msec [place] Interval: 156 msec QRS Duration: 148 msec QT Interval: 500 msec QTC Interval: 520 msec P-R-T [place]: 24 - 17 - 147 degrees Normal sinus rhythm Left bundle branch block Abnormal ECG Electronically Signed By: Burt Jenkins [id number]
--- NOTE | 2017-02-27 13:32 | CONS ---
Date/Time of Note Date/Time of Note DATE: 02/27/17 TIME: 13:30 Assessment/Plan Assessment/Plan Chief Complaint/Hosp Course IMPRESSION: 1. Bradycardia, significant down to the 30s with probable junctional escape versus ventricular escape with an actual elevated blood pressure in the setting of hyperkalemia. Now improved s/p improvement in K with HD and no recurrent sig shannen. NL TSH. Trop neg x 3 2. Abnormal electrocardiogram, left bundle branch block. Assess for acute coronary syndrome. 3. Hypertension. 4. End-stage renal disease on hemodialysis. 5. Hyperkalemia, likely cause of patient's bradyarrhythmias.-improved s/p HD with imnproved HR 6. Diabetes mellitus. 7. Anemia. 8. Hyponatremia-improved Recc: -Tele -Follow K closely -Continue current anti-hypertensives with cardura/hydralazsine/procardia/ losartan with now well controlled BP -HD for volume removal Problems: Consultation Date/Type/Reason Admit Date/Time Feb 22, 2017 at 10:27 Initial Consult Date 02/23/2017 Type of Consultation: cardiology Reason for Consultation bradycardia Referring Provider: KENZIE BROWNE MD Exam/Review of Systems Vital Signs Vitals Vital Signs Date Time Temp Pulse Resp B/P Pulse Ox O2 Delivery O2 Flow Rate FiO2 02/27/17 12:00 64 02/27/17 11:48 98.1 18 132/65 94 02/25/17 00:10 Room Air Intake and Output 02/26/17 02/26/17 02/27/17 14:59 22:59 06:59 Intake Total 800 ml 100 ml Balance 800 ml 100 ml Exam Review of Systems: CONSTITUTIONAL: No fevers, chills. PULMONARY: No sob CARDIOVASCULAR: No chest pain/palpitations GASTROINTESTINAL: No nausea/vomiting. GENITOURINARY: No hematuria/dysuria. MUSCULOSKELETAL: No myagias/arthalgias. PSYCHIATRIC: The patient denies depression. NEUROLOGIC: No weakness Constitutional: alert, oriented Psych: no complaints Head: normocephalic ENMT: mucosa pink and moist Neck: jvd (9 cm water), supple Respiratory: diminished breath sounds Cardiovascular: regular rate and rhythm Gastrointestinal: non-tender, soft Musculoskeletal: muscle tone Extremities: edema (none) Neurological: other (No focal deficits) Results Result Diagram: 02/24/17 0546 02/27/17 0639 Results 24 hrs Laboratory Tests Test 02/26/17 17:15 02/26/17 21:10 02/27/17 06:39 02/27/17 09:02 Bedside Glucose 137 134 112 Sodium Level 136 Potassium Level 4.3 Chloride Level 93 L Carbon Dioxide Level 28 Anion Gap 19 H Blood Urea Nitrogen 60 #H Creatinine 6.97 #H Glucose Level 105 # Calcium Level 8.0 L Total Bilirubin 0.0 L Direct Bilirubin 0.00 Indirect Bilirubin 0.0 Aspartate Amino Transf (AST/SGOT) 17 Alanine Aminotransferase (ALT/SGPT) 25 Alkaline Phosphatase 165 H Total Protein 7.3 Albumin 3.6 Globulin 3.70 H Albumin/Globulin Ratio 0.97 Medications Medications Current Medications Famotidine (Pepcid) 40 mg HS PO Last administered on 02/26/17 21:13; Admin Dose 40 MG; Start 02/22/17 at 21:00 Fluoxetine HCl (Prozac) 20 mg DAILY PO Last administered on 02/27/17 09:37; Admin Dose 20 MG; Start 02/23/17 at 09:00 Losartan Potassium (Cozaar) 50 mg BID PO Last administered on 02/26/17 21:12; Admin Dose 50 MG; Start 02/22/17 at 21:00 Metoclopramide HCl (Reglan) 5 mg DAILY PRN PO NAUSEA AND/OR VOMITING; Start at 12:30 Multivit/Ca Carb/ B Cmplx/FA/Prenat (Beronica-Morgan) 1 tab DAILY PO Last administered on 02/27/17 09:37; Admin Dose 1 TAB; Start 02/23/17 at 09:00 Nifedipine (Procardia Xl) 60 mg BID PO Last administered on 02/26/17 21:13; Admin Dose 60 MG; Start 02/22/17 at 21:00 Ondansetron HCl (Zofran Tab) 4 mg DAILY PRN PO NAUSEA AND/OR VOMITING; Start 02/22/17 at 12:30 Tramadol HCl (Ultram) 25 mg DAILY PRN PO PAIN Last administered on 02/27/17 11 :43; Admin Dose 25 MG; Start 02/22/17 at 12:30 Ondansetron HCl (Zofran Inj) 4 mg Q6H PRN IV NAUSEA AND/OR VOMITING Last administered on 02/24/17 06:14; Admin Dose 4 MG; Start 02/22/17 at 12:30 Acetaminophen (Tylenol Tab) 650 mg Q6H PRN PO PAIN LEVEL 1-3 OR FEVER Last administered on 02/27/17 09:38; Admin Dose 650 MG; Start 02/22/17 at 12:30 Acetaminophen (Tylenol Supp) 650 mg Q6H PRN [place] PAIN LEVEL 1-3 OR FEVER; Start 02/22/17 at 12:30 Docusate Sodium (Colace) 100 mg Q12H PRN PO CONSTIPATION; Start 02/22/17 at 12 :30 Bisacodyl (Dulcolax) 5 mg DAILY PRN PO CONSTIPATION Last administered on 08:14; Admin Dose 5 MG; Start 02/22/17 at 12:30 Heparin Sodium (Porcine) (Heparin (5000 Units/0.5 ml)) 5,000 unit Q12 SC Last administered on 02/26/17 21:21; Admin Dose 5,000 UNIT; Start 02/22/17 at 21:00 Diagnostic Test (Pha) (Accu-Chek) 1 ea 02 XX ; Start 02/23/17 at 02:00 Glucose (Glutose) 15 gm Q15M PRN PO DECREASED GLUCOSE; Start 02/22/17 at 20:30 Dextrose (D50w Syringe) 25 ml Q15M PRN IV DECREASED GLUCOSE; Start 02/22/17 at 20:30 Dextrose (D50w Syringe) 50 ml Q15M PRN IV DECREASED GLUCOSE; Start 02/22/17 at 20:30 Glucagon (Glucagen) 1 mg Q15M PRN IM DECREASED GLUCOSE; Start 02/22/17 at 20: 30 Hydralazine HCl (Apresoline) 10 mg Q6H PRN IV ELEVATED SYSTOLIC BP Last administered on 02/23/17 01:39; Admin Dose 10 MG; Start 02/23/17 at 01:30 Pantoprazole (Protonix Tab) 40 mg DAILY@06 PO Last administered on 02/27/17 06 :55; Admin Dose 40 MG; Start 02/24/17 at 06:00 Lorazepam (Ativan) 1 mg TID PRN IV AGITATION/ANXIETY; Start 02/24/17 at 05:00 Hydralazine HCl (Apresoline) 100 mg TID PO Last administered on 02/26/17 21:12 ; Admin Dose 100 MG; Start 02/25/17 at 21:00 Doxazosin Mesylate (Cardura) 2 mg HS PO Last administered on 02/26/17 21:12; Admin Dose 2 MG; Start 02/26/17 at 21:00 IAN LAGUNA Feb 27, 2017 13:32
--- NOTE | 2017-02-27 17:24 | PN ---
Date/Time of Note Date/Time of Note DATE: 02/27/17 TIME: 17:23 Assessment/Plan VTE Prophylaxis VTE Prophylaxis Intervention: other Lines/Catheters IV [facility]from [facility] Saline Lock Urinary Cath still in place: No Assessment/Plan Chief Complaint/Hosp Course IMPRESSION: 1. Hyperkalemia.BETTER 2. Arrhythmia. 3. End-stage renal disease. 4, Diabetes mellitus. 5. Hypertension. 6. Anemia. 7. Gastrointestinal bleed related. 8. Diabetic nephropathy, retinopathy and neuropathy. 9 r/o sss plan kayexalate PRN hd PER CARDIO Problems: Subjective 24 Hr Interval Summary Subjective hx not possible: other ENT: no complaints Respiratory: no complaints Cardiovascular: no complaints Exam/Review of Systems Vital Signs Vitals Vital Signs Date Time Temp Pulse Resp B/P Pulse Ox O2 Delivery O2 Flow Rate FiO2 02/27/17 16:21 98.0 55 18 131/67 97 02/25/17 00:10 Room Air Intake and Output 02/26/17 02/26/17 02/27/17 15:00 23:00 07:00 Intake Total 800 ml 100 ml Balance 800 ml 100 ml Exam Neck: supple Respiratory: clear to auscultation Cardiovascular: regular rate and rhythm Gastrointestinal: bowel sounds (+), soft Extremities: edema (+) Results Result Diagram: 02/24/17 0546 02/27/17 0639 Results 24 hrs Laboratory Tests Test 02/26/17 21:10 02/27/17 06:39 02/27/17 09:02 02/27/17 13:38 Bedside Glucose 134 112 233 H Sodium Level 136 Potassium Level 4.3 Chloride Level 93 L Carbon Dioxide Level 28 Anion Gap 19 H Blood Urea Nitrogen 60 #H Creatinine 6.97 #H Glucose Level 105 # Calcium Level 8.0 L Total Bilirubin 0.0 L Direct Bilirubin 0.00 Indirect Bilirubin 0.0 Aspartate Amino Transf (AST/SGOT) 17 Alanine Aminotransferase (ALT/SGPT) 25 Alkaline Phosphatase 165 H Total Protein 7.3 Albumin 3.6 Globulin 3.70 H Albumin/Globulin Ratio 0.97 Medications Medications Current Medications Famotidine (Pepcid) 40 mg HS PO Last administered on 02/26/17 21:13; Admin Dose 40 MG; Start 02/22/17 at 21:00 Fluoxetine HCl (Prozac) 20 mg DAILY PO Last administered on 02/27/17 09:37; Admin Dose 20 MG; Start 02/23/17 at 09:00 Losartan Potassium (Cozaar) 50 mg BID PO Last administered on 02/26/17 21:12; Admin Dose 50 MG; Start 02/22/17 at 21:00 Metoclopramide HCl (Reglan) 5 mg DAILY PRN PO NAUSEA AND/OR VOMITING; Start at 12:30 Multivit/Ca Carb/ B Cmplx/FA/Prenat (Beronica-Morgan) 1 tab DAILY PO Last administered on 02/27/17 09:37; Admin Dose 1 TAB; Start 02/23/17 at 09:00 Nifedipine (Procardia Xl) 60 mg BID PO Last administered on 02/26/17 21:13; Admin Dose 60 MG; Start 02/22/17 at 21:00 Ondansetron HCl (Zofran Tab) 4 mg DAILY PRN PO NAUSEA AND/OR VOMITING; Start 02/22/17 at 12:30 Tramadol HCl (Ultram) 25 mg DAILY PRN PO PAIN Last administered on 02/27/17 11 :43; Admin Dose 25 MG; Start 02/22/17 at 12:30 Ondansetron HCl (Zofran Inj) 4 mg Q6H PRN IV NAUSEA AND/OR VOMITING Last administered on 02/24/17 06:14; Admin Dose 4 MG; Start 02/22/17 at 12:30 Acetaminophen (Tylenol Tab) 650 mg Q6H PRN PO PAIN LEVEL 1-3 OR FEVER Last administered on 02/27/17 16:33; Admin Dose 650 MG; Start 02/22/17 at 12:30 Acetaminophen (Tylenol Supp) 650 mg Q6H PRN [place] PAIN LEVEL 1-3 OR FEVER; Start 02/22/17 at 12:30 Docusate Sodium (Colace) 100 mg Q12H PRN PO CONSTIPATION; Start 02/22/17 at 12 :30 Bisacodyl (Dulcolax) 5 mg DAILY PRN PO CONSTIPATION Last administered on 08:14; Admin Dose 5 MG; Start 02/22/17 at 12:30 Heparin Sodium (Porcine) (Heparin (5000 Units/0.5 ml)) 5,000 unit Q12 SC Last administered on 02/26/17 21:21; Admin Dose 5,000 UNIT; Start 02/22/17 at 21:00 Diagnostic Test (Pha) (Accu-Chek) 1 ea 02 XX ; Start 02/23/17 at 02:00 Glucose (Glutose) 15 gm Q15M PRN PO DECREASED GLUCOSE; Start 02/22/17 at 20:30 Dextrose (D50w Syringe) 25 ml Q15M PRN IV DECREASED GLUCOSE; Start 02/22/17 at 20:30 Dextrose (D50w Syringe) 50 ml Q15M PRN IV DECREASED GLUCOSE; Start 02/22/17 at 20:30 Glucagon (Glucagen) 1 mg Q15M PRN IM DECREASED GLUCOSE; Start 02/22/17 at 20: 30 Hydralazine HCl (Apresoline) 10 mg Q6H PRN IV ELEVATED SYSTOLIC BP Last administered on 02/23/17 01:39; Admin Dose 10 MG; Start 02/23/17 at 01:30 Pantoprazole (Protonix Tab) 40 mg DAILY@06 PO Last administered on 02/27/17 06 :55; Admin Dose 40 MG; Start 02/24/17 at 06:00 Lorazepam (Ativan) 1 mg TID PRN IV AGITATION/ANXIETY; Start 02/24/17 at 05:00 Hydralazine HCl (Apresoline) 100 mg TID PO Last administered on 02/26/17 21:12 ; Admin Dose 100 MG; Start 02/25/17 at 21:00 Doxazosin Mesylate (Cardura) 2 mg HS PO Last administered on 02/26/17 21:12; Admin Dose 2 MG; Start 02/26/17 at 21:00 KENZIE BROWNE MD Feb 27, 2017 17:24
[2017-02-27] MEDS: FAMOTIDINE 20 MG TAB PO SCH (21:01)
[2017-02-27] MEDS: DOXAZOSIN 2 MG TAB PO SCH (21:02)
[2017-02-27] MEDS ORDERED: traMADol 50 MG TAB PO PRN (22:30)
[2017-02-28] VITALS (10 sets, daily range): BP systolic 132–167; BP diastolic 60–71; PULSE 52–71; RESP 16–19
[2017-02-28] MEDS: ACCU-CHEK XX SCH (02:00)
[2017-02-28] MEDS: PANTOPRAZOLE (EC) 40 MG TAB PO SCH (06:36)
[2017-02-28] MEDS: INSULIN ASPART [NOVOLOG] 3 ML PEN SC SCH ×3 (08:00→16:28)
[2017-02-28] MEDS: MULTIVIT/CA CARB/B CMPLX/FA TAB PO SCH (08:31)
[2017-02-28] MEDS: CALCIUM ACETATE 667 MG CAP PO SCH ×3 (08:31→18:10)
[2017-02-28] MEDS: FLUOXETINE 20 MG CAP PO SCH (08:31)
[2017-02-28] MEDS: NIFEdipine (XL) 60 MG TAB PO SCH (08:32)
[2017-02-28] MEDS: LOSARTAN 50 MG TAB PO SCH (08:32)
[2017-02-28] MEDS: HEPARIN 5,000 UNIT/0.5 ML VIAL SC SCH (08:33)
--- NOTE | 2017-02-28 10:53 | CONS ---
Date/Time of Note Date/Time of Note DATE: 02/28/17 TIME: 10:51 Assessment/Plan Assessment/Plan Additional Assessment/Plan 1. Bradycardia, significant down to the 30s with probable junctional escape versus ventricular escape with an actual elevated blood pressure in the setting of hyperkalemia. Now improved s/p improvement in K with HD and no recurrent sig shannen. NL TSH. Trop neg x 3 - HR improved, will monitor clinically for now 2. Abnormal electrocardiogram, left bundle branch block. Assess for acute coronary syndrome. 3. Hypertension- heidi rwith HD 4. End-stage renal disease on hemodialysis - Rx to remove K+ 5. Hyperkalemia, likely cause of patient's bradyarrhythmias.-improved s/p HD with imnproved HR 6. Diabetes mellitus. 7. Anemia. 8. Hyponatremia-improved Consultation Date/Type/Reason Admit Date/Time Feb 22, 2017 at 10:27 Initial Consult Date Type of Consultation: cardiology Referring Provider: KENZIE BROWNE MD 24 HR Interval Summary Free Text/Dictation NO acute events - HR better - no indication for pacer ROS: No fever, no chills, no nausea, no vomiting, no diarrhea/constipation No recent weight changes No chest pain, no PND, no orthopnea No dizziness, blurred vision No thirst, no heat or cold intolerance Exam/Review of Systems Vital Signs Vitals Vital Signs Date Time Temp Pulse Resp B/P Pulse Ox O2 Delivery O2 Flow Rate FiO2 02/28/17 08:14 98.0 57 16 132/62 98 02/25/17 00:10 Room Air Intake and Output 02/27/17 02/27/17 02/28/17 15:00 23:00 07:00 Intake Total 500 ml 250 ml 150 ml Output Total 3500 ml Balance -3000 ml 250 ml 150 ml Exam General: WN/WD/NAD, AOx 3 HEENT: Unicetric/atraumatic/EOMI (follows commands) NECK: JVD elevated, no thyromegaly Lymph: no lymphadenopathy HEART: regular with no S3, II/ systolic murmur at apex LUNGS: Coarse sounds ABD: soft, NT, ND, +BS : Intact Neuro: non focal SKIN: chronic changes EXT: trace edema Results Result Diagram: 02/24/17 0546 02/27/17 0639 Results 24 hrs Laboratory Tests Test 02/27/17 13:38 02/27/17 17:32 02/27/17 21:05 02/28/17 08:30 Bedside Glucose 233 H 149 137 117 Medications Medications Current Medications Famotidine (Pepcid) 40 mg HS PO Last administered on 02/27/17 21:01; Admin Dose 40 MG; Start 02/22/17 at 21:00 Fluoxetine HCl (Prozac) 20 mg DAILY PO Last administered on 02/28/17 08:31; Admin Dose 20 MG; Start 02/23/17 at 09:00 Losartan Potassium (Cozaar) 50 mg BID PO Last administered on 02/28/17 08:32; Admin Dose 50 MG; Start 02/22/17 at 21:00 Metoclopramide HCl (Reglan) 5 mg DAILY PRN PO NAUSEA AND/OR VOMITING; Start at 12:30 Multivit/Ca Carb/ B Cmplx/FA/Prenat (Beronica-Morgan) 1 tab DAILY PO Last administered on 02/28/17 08:31; Admin Dose 1 TAB; Start 02/23/17 at 09:00 Nifedipine (Procardia Xl) 60 mg BID PO Last administered on 02/28/17 08:32; Admin Dose 60 MG; Start 02/22/17 at 21:00 Ondansetron HCl (Zofran Tab) 4 mg DAILY PRN PO NAUSEA AND/OR VOMITING; Start 02/22/17 at 12:30 Ondansetron HCl (Zofran Inj) 4 mg Q6H PRN IV NAUSEA AND/OR VOMITING Last administered on 02/24/17 06:14; Admin Dose 4 MG; Start 02/22/17 at 12:30 Acetaminophen (Tylenol Tab) 650 mg Q6H PRN PO PAIN LEVEL 1-3 OR FEVER Last administered on 02/27/17 17:50; Admin Dose 650 MG; Start 02/22/17 at 12:30 Acetaminophen (Tylenol Supp) 650 mg Q6H PRN [place] PAIN LEVEL 1-3 OR FEVER; Start 02/22/17 at 12:30 Docusate Sodium (Colace) 100 mg Q12H PRN PO CONSTIPATION; Start 02/22/17 at 12 :30 Bisacodyl (Dulcolax) 5 mg DAILY PRN PO CONSTIPATION Last administered on 08:14; Admin Dose 5 MG; Start 02/22/17 at 12:30 Heparin Sodium (Porcine) (Heparin (5000 Units/0.5 ml)) 5,000 unit Q12 SC Last administered on 02/28/17 08:33; Admin Dose 5,000 UNIT; Start 02/22/17 at 21:00 Diagnostic Test (Pha) (Accu-Chek) 1 ea 02 XX ; Start 02/23/17 at 02:00 Glucose (Glutose) 15 gm Q15M PRN PO DECREASED GLUCOSE; Start 02/22/17 at 20:30 Dextrose (D50w Syringe) 25 ml Q15M PRN IV DECREASED GLUCOSE; Start 02/22/17 at 20:30 Dextrose (D50w Syringe) 50 ml Q15M PRN IV DECREASED GLUCOSE; Start 02/22/17 at 20:30 Glucagon (Glucagen) 1 mg Q15M PRN IM DECREASED GLUCOSE; Start 02/22/17 at 20: 30 Hydralazine HCl (Apresoline) 10 mg Q6H PRN IV ELEVATED SYSTOLIC BP Last administered on 02/23/17 01:39; Admin Dose 10 MG; Start 02/23/17 at 01:30 Pantoprazole (Protonix Tab) 40 mg DAILY@06 PO Last administered on 02/28/17 06 :36; Admin Dose 40 MG; Start 02/24/17 at 06:00 Lorazepam (Ativan) 1 mg TID PRN IV AGITATION/ANXIETY; Start 02/24/17 at 05:00 Hydralazine HCl (Apresoline) 100 mg TID PO Last administered on 02/28/17 08:32 ; Admin Dose 100 MG; Start 02/25/17 at 21:00 Doxazosin Mesylate (Cardura) 2 mg HS PO Last administered on 02/27/17 21:02; Admin Dose 2 MG; Start 02/26/17 at 21:00 Tramadol HCl (Ultram) 50 mg TID PRN PO PAIN LEVEL 4-7; Start 02/27/17 at 22:30 YUMIKO AVILA MD Feb 28, 2017 10:53
--- NOTE | 2017-02-28 16:24 | PDOCDIS ---
Discharge Instructions CONDITION Patient Condition: Stable HOME CARE INSTRUCTIONS: Special Diet: REnal diet ACTIVITY: Activity Restrictions: Slowly Increase Activity FOLLOW UP/APPOINTMENTS Follow-up Plan f/u pcp [address] bradley [address] browne at dialysis center KENZIE BROWNE MD Feb 28, 2017 16:24
[2017-02-28] MEDS ORDERED: DOXA2TAB61 PO (16:27)
[2017-02-28] MEDS ORDERED: DOCU-216 PO (16:27)
[2017-02-28] MEDS ORDERED: HEP5KI SC (16:27)
[2017-02-28] MEDS ORDERED: BISA5TAB6 PO (16:27)
[2017-02-28] MEDS ORDERED: TRAM50TA2 PO (16:27)
[2017-02-28] MEDS ORDERED: HYDR-3672 PO (16:27)
--- NOTE | 2017-03-02 18:28 | QN ---
Documentation Comment [id number] KENZIE BROWNE MD Mar 02, 2017 18:28
--- NOTE | 2017-03-03 06:54 | DS ---
DATE OF ADMISSION: 02/22/2017 DATE OF DISCHARGE: 02/28/2017 HOSPITAL COURSE: The patient with history of diabetes, ESRD, hypertension, was admitted with diagno sis of weakness. The patient has episodes of a syncopal episode. Due to cardiac arrhythmia, the nicholas batista has severe symptomatic bradycardia, hyperkalemia, recurrent, was seen by Dr. Quiles in [facility]. The patient underwent aggressive hemodialysis. The patient's blood pressure medicines were adjusted. The patient has chronic anemia. The patient did not require any cardiac intervention. Echocardiogram was done, shows patient has ejection fraction 55% and patient was cleared to be disch arged home. DISCHARGE DIAGNOSES: 1. Hyperkalemia. 2. Bradycardia. 3. Hypertension. 4. Endstage renal disease. 5. Diabetes mellitus. 6. Anemia. 7. Hyponatremia. 8. Atherosclerotic heart disease. DISCHARGE MEDICATIONS: To continue on: 1. Bisacodyl. 2. Docusate sodium. 3. Cardura. 4. SubQ heparin. 5. Hydralazine. 6. Tramadol. 7. Continue PhosLo. 8. Omeprazole. 9. Pepcid. 10. Prozac. 11. Losartan. 12. Reglan. 13. Multiple vitamin. 14. Nifedipine. 15. Zofran. The patient to be on a diabetic, low salt diet. Follow up with PCP, Dr. Browne and Dr. Quiles as an outpatient. Dictated By: KENZIE BROWNE MD BS/NTS Conf#: [id number] DID#: [id number]
== END 2017-02-28 19:24 | DRG 640 ==
LOC: E/R 08:45 → TEL 10:27 → ICU 02-23 14:49 → MS4 02-25 00:15
PROVIDERS: ADMIT Internal Medicine Nephrology; ATTEND Internal Medicine Nephrology
PROC: 5A12012 Performance of Cardiac Output, Single, Manual (ICD-10-PCS; 2017-02-23)
PROC: 5A1D70Z Performance of Urinary Filtration, Intermittent, Less than 6 Hours Per Day (ICD-10-PCS; principal; 2017-02-25)
DX: E87.5 Hyperkalemia (principal); N18.6 End stage renal disease; I12.0 Hypertensive chronic kidney disease with stage 5 chronic kidney disease or end stage renal disease; E11.21 Type 2 diabetes mellitus with diabetic nephropathy; R00.1 Bradycardia, unspecified; E87.1 Hypo-osmolality and hyponatremia; E11.22 Type 2 diabetes mellitus with diabetic chronic kidney disease; E11.319 Type 2 diabetes mellitus with unspecified diabetic retinopathy without macular edema; E11.51 Type 2 diabetes mellitus with diabetic peripheral angiopathy without gangrene; E11.40 Type 2 diabetes mellitus with diabetic neuropathy, unspecified; D64.9 Anemia, unspecified; K21.9 Gastro-esophageal reflux disease without esophagitis; I44.7 Left bundle-branch block, unspecified; I25.10 Atherosclerotic heart disease of native coronary artery without angina pectoris; Z89.411 Acquired absence of right great toe; Z99.2 Dependence on renal dialysis; Z99.3 Dependence on wheelchair; Z87.891 Personal history of nicotine dependence
CPT/HCPCS: 71010; 80048; 80053; 80061; 80069; 82550; 82553; 82962; 83735; 84443; 84484; 85025; 85610; 85730; 87081; 90935; 93005; 93306; 94664; 96374; 96375; C9113; J0171; J0360; J0461; J0610; J1265; J1644; J1815; J2405

== ENCOUNTER 2018-05-04 08:37 | Inpatient (IN) | payer OTHER ==
[~2018-05-04] VITALS: Ht 162.6 cm; Wt 70.0 kg
[~2018-05-04 08:37] MED LIST changes: -ATROPINE 1 MG/10 ML SYRINGE ONE; +BISA5TAB6 PO; +DOCU-216 PO; +DOXA2TAB61 PO; -EPINEPHrine 0.1 MG/ML SYG ONE; -FAMO40TA38 PO; +FAMO40TA66 PO; +NIFE60TA18 PO; -NIFE60TA7 PO; +[UNRECOGNIZED DRUG - CODE] SC
[2018-05-04] MEDS ORDERED: PANTOPRAZOLE 40 MG INJ IV STA (08:41)
[2018-05-04 08:48] VITALS: Ht 162.6 cm; Wt 70.0 kg
[2018-05-04] MEDS ORDERED: ONDANSETRON 4 MG INJ IV STA (09:28)
[2018-05-04] MEDS ORDERED: LIDOCAINE/MYLANTA 40 ML BTL PO ONE (09:30)
[2018-05-04] MEDS ORDERED: LIDOCAINE 1% (MPF) 5 ML VIAL SC ONE (09:30)
[2018-05-04] MEDS ORDERED: LORAZEPAM 2 MG INJ IV ONE (10:00)
--- NOTE | 2018-05-04 11:16 | ERD ---
ER Documentation Chief Complaint Chief Complaint BIB RA FOR EVAL OF VOMITING BLOOD. HPI Patient is a 73-year-old female with a history of dialysis who presents with vomiting blood. She was brought in by ambulance. She started vomiting blood before starting her dialysis. She is complaining of throat pain. She is not on blood thinning medications at this time. ROS All systems reviewed and are negative except as per history of present illness. Medications Home Meds Active Scripts Docusate Sodium (Dok) 100 Mg Capsule, 100 MG PO Q12H PRN for CONSTIPATION for 28 Days, CAP Prov:KENZIE BROWNE MD 02/28/17 Bisacodyl* (Bisacodyl*) 5 Mg Tablet.dr, 5 MG PO DAILY PRN for CONSTIPATION for 28 Days Prov:KENZIE BROWNE MD 02/28/17 Tramadol HCl (Tramadol HCl) 50 Mg Tablet, 50 MG PO TID PRN for PAIN LEVEL 4-7 for 14 Days, TAB Prov:KENZIE BROWNE MD 02/28/17 Hydralazine Hcl* (Apresoline*) 50 Mg Tab, 100 MG PO TID for 28 Days, TAB Prov:KENZIE BROWNE MD 02/28/17 Doxazosin Mesylate* (Cardura*) 2 Mg Tablet, 2 MG PO HS for 14 Days, TAB Prov:KENZIE BROWNE MD 02/28/17 Heparin Sod (Porcine)* (Heparin*) 5,000 Unit/0.5 Ml Soln, 5000 UNIT SC Q12 for 1 Day Prov:KENZIE BROWNE MD 02/28/17 Nifedipine* (Nifedipine ER*) 60 Mg Tablet.sa, 60 MG PO BID, #120 TAB.SA Prov:MARVIN WATKINS MD 04/10/14 Reported Medications Ondansetron Hcl* (Zofran*) 4 Mg Tablet, 4 MG PO DAILY PRN for NAUSEA AND OR VOMITING, TAB 04/09/14 Metoclopramide* (Reglan*) 5 Mg Tablet, 5 MG PO DAILY PRN for NAUSEA AND/OR VOMITING, TAB 04/09/14 Calcium Acetate* (Calcium Acetate*) 667 Mg Capsule, 667 MG PO WITH MEALS, CAP 04/09/14 Multivit/Ca Carb/B Cmplx/Fa* (Beronica-Morgan*) 1 Tab Tab, 1 TAB PO DAILY, TAB 04/09/14 Fluoxetine Hcl* (Prozac*) 20 Mg Capsule, 20 MG PO DAILY 01/09/12 Famotidine* (Pepcid*) 40 Mg Tablet, 40 MG PO HS 01/09/12 Esomeprazole Mag Trihydrate (Nexium) 40 Mg Capsule.dr, 40 MG PO DAILY 01/09/12 Losartan Potassium* (Cozaar*) 50 Mg Tablet, 50 MG PO BID 01/09/12 Allergies Allergies: Coded Allergies: No Known Allergies (Verified Allergy, Mild, 02/22/17) PMhx/Soc History of Surgery: Yes (Gastritis; right 4th toe amputation, left 2nd toe amputation) Anesthesia Reaction: No Hx Neurological Disorder: Yes Hx Respiratory Disorders: No Hx Psychiatric Problems: No Hx Miscellaneous Medical Probl: Yes (Wheelchair bound ) Hx Alcohol Use: No Hx Substance Use: No Hx Tobacco Use: No Smoking Status: Never smoker FmHx Family History: No diabetes Physical Exam Vitals Vital Signs Date Temp Pulse Resp B/P (MAP) Pulse Ox O2 O2 Flow FiO2 Time Delivery Rate 05/04/18 72 16 168/63 100 Room Air 10:12 (98) 05/04/18 2 09:38 05/04/18 98.2 89 18 189/93 99 08:48 (125) Physical Exam Const: Moderate distress Head: Atraumatic Eyes: Normal Conjunctiva ENT: Normal External Ears, Nose and Mouth. Neck: Full range of motion. No meningismus. Resp: Clear to auscultation bilaterally Cardio: Regular rate and rhythm, no murmurs Abd: Soft, non tender, non distended. Normal bowel sounds Skin: Pale skin Back: No midline or flank tenderness Ext: No cyanosis, or edema Neur: Awake and alert Psych: Normal Mood and Affect Result Diagram: 05/04/1818 05/04/1819 Results 24 hrs Laboratory Tests Test 05/04/18 09:18 05/04/18 09:19 White Blood Count 9.1 10^3/ul Red Blood Count 4.22 10^6/ul Hemoglobin 13.3 g/dl Hematocrit 40.8 % Mean Corpuscular Volume 96.7 fl Mean Corpuscular Hemoglobin 31.5 pg Mean Corpuscular Hemoglobin Concent 32.6 g/dl Red Cell Distribution Width 14.6 % Platelet Count 196 10^3/UL Mean Platelet Volume 10.7 fl Immature Granulocytes % 0.300 % Neutrophils % 81.4 % Lymphocytes % 10.3 % Monocytes % 5.5 % Eosinophils % 1.9 % Basophils % 0.6 % Nucleated Red Blood Cells % 0.0 /100WBC Immature Granulocytes # 0.030 10^3/ul Neutrophils # 7.4 10^3/ul Lymphocytes # 0.9 10^3/ul Monocytes # 0.5 10^3/ul Eosinophils # 0.2 10^3/ul Basophils # 0.1 10^3/ul Nucleated Red Blood Cells # 0.0 10^3/ul Prothrombin Time 13.0 Sec Prothrombin Time Ratio 1.0 INR International Normalized Ratio 0.97 Activated Partial Thromboplast Time 28.0 Sec Sodium Level 139 mmol/L Potassium Level 4.8 mmol/L Chloride Level 83 mmol/L Carbon Dioxide Level 39 mmol/L Anion Gap 17 Blood Urea Nitrogen 81 mg/dl Creatinine 8.70 mg/dl Est Glomerular Filtrat Rate mL/min mL/min Glucose Level 271 mg/dl Calcium Level 10.3 mg/dl Total Bilirubin 0.0 mg/dl Direct Bilirubin 0.00 mg/dl Indirect Bilirubin 0.0 mg/dl Aspartate Amino Transf (AST/SGOT) 32 IU/L Alanine Aminotransferase (ALT/SGPT) 19 IU/L Alkaline Phosphatase 154 IU/L Troponin I 0.039 ng/ml Total Protein 8.6 g/dl Albumin 4.7 g/dl Globulin 3.90 g/dl Albumin/Globulin Ratio 1.20 Current Medications Medications Dose Sig/Cornelius Start Time Status Last (Trade) Ordered Route PRN Stop Time Admin Dose Reason Admin 40 mg ONCE STAT 05/04/18 DC 05/04/18 Pantoprazole IV 08:41 05/04/18 08:41 (Protonix 08:42 Iv) 40 ml ONCE ONCE 05/04/18 DC Miscellaneous PO 09:30 05/04/18 Medication 09:31 (Gi Cocktail (2)) Ondansetron 8 mg ONCE STAT 05/04/18 DC 05/04/18 HCl (Zofran IV 09:28 05/04/18 09:46 Inj) 09:29 Lidocaine 5 ml ONCE ONCE 05/04/18 DC (Xylocaine SC 09:30 05/04/18 1% (Mpf)) 09:31 Lorazepam 1 mg ONCE ONCE 05/04/18 DC 05/04/18 (Ativan) IV 10:00 05/04/18 09:46 10:01 Ondansetron 4 mg BRIDGE ORDER 05/04/18 HCl (Zofran PRN IV 11:30 05/05/18 Inj) NAUSEA/VOMITI 11:29 NG 650 mg ER BRIDGE 05/04/18 Acetaminophen PRN PO 11:30 05/05/18 (Tylenol .MILD PAIN 11:29 Tab) 1-3 OR TEMP Procedures/MDM EKG read by me: Rate/Rhythm: Regular rate and rhythm at a normal rate Intervals: Normal Impression: No evidence of ischemia or arrhythmia Chest x-ray pending. Patient is a 73-year-old female with a history of dialysis, hypertension, and GI bleed who presents with coffee-ground emesis. I am concerned for upper GI bleed. The patient was given Protonix IV. Hemoglobin is stable at 13.3 but this may drop given her GI bleed. The patient has a potassium within normal limits at this time does not need emergent dialysis. She will likely need dialysis while admitted. She will be admitted to the care of Dr. Browne. The patient will be admitted to a medical surgical bed. The patient does not require transfusion at this time but if her hemoglobin drops further she may require it. Departure Diagnosis: Primary Impression: GI bleed GI bleed type/associated pathology: unspecified gastrointestinal hemorrhage type Qualified Codes: K92.2 - Gastrointestinal hemorrhage, unspecified Condition: Serious DUAEN REARDON MD May 04, 2018 11:16
[2018-05-04] MEDS ORDERED: ONDANSETRON 4 MG INJ IV PRN (11:30)
[2018-05-04] MEDS ORDERED: ACETAMINOPHEN 325 MG TAB PO PRN (11:30)
[2018-05-04 13:00] VITALS: BP 177/73; PULSE 70; RESP 18
[2018-05-04] MEDS: hydrALAzine 20 MG INJ IV PRN (13:41)
--- NOTE | 2018-05-04 13:58 | HP ---
MAGNO DICK 05/04/18 1358: Date/Time of Note Date/Time of Note DATE: 05/04/18 TIME: 13:57 Assessment/Plan VTE Prophylaxis SCD applied (from Nsg): Yes Pharmacological prophylaxis: NA/contraindicated Pharm contraindication: surgical contra Lines/Catheters IV Catheter Type (from Nrsg): Saline Lock Assessment/Plan Hospital Course 1. Active GI bleed. 2. Arthritis 3. End-stage renal disease, on HD. 4. Diabetes mellitus type II with hyperglycemia. 5. Hypertension. 6. Overweight 7. Hx of GI bleed in past 8. Diabetic nephropathy, retinopathy and neuropathy. 9. Arrhythmia. 10. Hypercalcemia 2 ESDR Assessment/Plan -GI prophylaxis protonix IV BID -DVT prophylaxis SCD bilaterally -Protonix IV BID -avoid anxiolytics. -octreotide drip -NG tube low cont. suction -Dr Pollock, GI to see Result Diagram: 05/04/18 0918 05/04/18 0919 Results 24hrs Laboratory Tests Test 05/04/18 09:18 05/04/18 09:19 White Blood Count 9.1 # Red Blood Count 4.22 # Hemoglobin 13.3 # Hematocrit 40.8 # Mean Corpuscular Volume 96.7 Mean Corpuscular Hemoglobin 31.5 Mean Corpuscular Hemoglobin Concent 32.6 Red Cell Distribution Width 14.6 H Platelet Count 196 Mean Platelet Volume 10.7 H Immature Granulocytes % 0.300 Neutrophils % 81.4 H Lymphocytes % 10.3 L Monocytes % 5.5 Eosinophils % 1.9 Basophils % 0.6 Nucleated Red Blood Cells % 0.0 Immature Granulocytes # 0.030 Neutrophils # 7.4 Lymphocytes # 0.9 Monocytes # 0.5 Eosinophils # 0.2 Basophils # 0.1 Nucleated Red Blood Cells # 0.0 Prothrombin Time 13.0 Prothrombin Time Ratio 1.0 INR International Normalized Ratio 0.97 Activated Partial Thromboplast Time 28.0 Sodium Level 139 Potassium Level 4.8 Chloride Level 83 L Carbon Dioxide Level 39 H Anion Gap 17 H Blood Urea Nitrogen 81 H Creatinine 8.70 H Est Glomerular Filtrat Rate mL/min Glucose Level 271 H Calcium Level 10.3 H Total Bilirubin 0.0 L Direct Bilirubin 0.00 Indirect Bilirubin 0.0 Aspartate Amino Transf (AST/SGOT) 32 Alanine Aminotransferase (ALT/SGPT) 19 Alkaline Phosphatase 154 H Troponin I 0.039 Total Protein 8.6 H Albumin 4.7 Globulin 3.90 H Albumin/Globulin Ratio 1.20 HPI/ROS Admit Date/Time Admit Date/Time May 04, 2018 at 11:08 Hx of Present Illness Patient is a 73-year-old female with a history of ESRD on hemodialysis, hypertension, history of diabetes mellitus, neuropathy, history of diabetic nephropathy, retinopathy, neuropathy, history of right great toe amputation,arthritis, history of GERD, history of CAD, atherosclerotic heart disease who presents with vomiting blood to ER. She was brought in by ambulance. She started vomiting blood before starting her dialysis in HD center. She is complaining of throat pain. She is not on blood thinning medications at this time. last time pt was admitted January 2017 due to hyperkalemia and bradycardia. ROS pt is lethargic PMH/Family/Social Past Medical History Medical History: coronary artery disease, diabetes, hypertension, peptic ulcer disease, renal disease Medications Current Medications Ondansetron HCl (Zofran Inj) 4 mg BRIDGE ORDER PRN IV NAUSEA/VOMITING; Start 05/04/18 at 11:30; Stop 05/05/18 at 11:29 Acetaminophen (Tylenol Tab) 650 mg ER BRIDGE PRN PO .MILD PAIN 1-3 OR TEMP; Start 05/04/18 at 11:30; Stop 05/05/18 at 11:29 Hydralazine HCl (Apresoline) 10 mg Q6H PRN IV ELEVATED BLOOD PRESSURE Last administered on 05/04/18at 13:41; Admin Dose 10 MG; Start 05/04/18 at 13:30 Coded Allergies: No Known Allergies (Verified Allergy, Mild, 02/22/17) Past Surgical History Past Surgical Hx: other (av fistula) Social History Alcohol Use: none Smoking Status: Never smoker Drug Use: none Exam/Review of Systems Vital Signs Vitals Vital Signs Date Temp Pulse Resp B/P (MAP) Pulse Ox O2 O2 Flow FiO2 Time Delivery Rate 05/04/18 97.4 70 18 177/73 96 Room Air 13:00 (107) 05/04/18 2 09:38 Exam Exam lethargic Psych: no complaints Head: normocephalic Neck: supple Respiratory: clear to auscultation Cardiovascular: regular rate and rhythm Gastrointestinal: soft Musculoskeletal: other (left arm AV fistula) AMADO JIM MD 05/04/18 1729: Assessment/Plan Assessment/Plan Assessment/Plan seen and examined with TEST ANALYST GI BLEED VS OBSTRCUTION STAT h and H hd today gi consult CT A+P Result Diagram: 05/04/1891705/04/18918 PMH/Family/Social Past Medical History Coded Allergies: No Known Allergies (Verified Allergy, Mild, 02/22/17) MAGNO DICK May 04, 2018 13:58 AAMDO JIM MD May 04, 2018 17:29
[2018-05-04] MEDS ORDERED: traMADol 50 MG TAB PO PRN (14:30)
[2018-05-04] MEDS ORDERED: BISACODYL (EC) 5 MG TAB PO PRN (14:30)
[2018-05-04] MEDS ORDERED: DOCUSATE SODIUM 100 MG CAP PO PRN (14:30)
[2018-05-04 14:41] VITALS: BP 150/93; PULSE 71; RESP 18
[2018-05-04] MEDS ORDERED: OCTREOTIDE 500 MCG in DEXTROSE 5% 49 ML IV SCH (15:00)
[2018-05-04] MEDS ORDERED: GLUCOSE GEL 15 GRAM TUBE PO PRN ×2 (15:30)
[2018-05-04] MEDS ORDERED: DEXTROSE 50% 50 ML SYRINGE IV PRN ×2 (15:30)
[2018-05-04] MEDS ORDERED: GLUCOSE GEL 15 GRAM TUBE BUCCAL PRN (15:30)
[2018-05-04] MEDS ORDERED: GLUCAGON 1 MG INJ IM PRN (15:30)
[2018-05-04] MEDS: DEXTROSE 5%-0.45% NACL 500 ML IV SCH (16:49)
--- NOTE | 2018-05-04 16:55 | PREAC ---
Date/Time of Note Date/Time of Note DATE: 05/04/18 TIME: 16:53 Anesthesia Eval and Record Evaluation Time Pre-Procedure Interview DATE: 05/04/18 TIME: 16:53 Age 73 Sex female NPO: 8 hrs Preoperative diagnosis GI bleed Planned procedure EGD Past Medical History Past Medical History: Includes Cardio: HTN, CAD Endo: Diabetes Renal: ESRD on dialysis GI: GERD Surgery & Anesthesia Issues No known issue Meds Anticoagulation: No Beta Grupo within 24 hr: No Reason Beta Grupo not given: Pt. not on B-Grupo Active Scripts Docusate Sodium (Dok) 100 Mg Capsule, 100 MG PO Q12H PRN for CONSTIPATION for 28 Days, CAP Prov:KENZIE BROWNE MD 02/28/17 Bisacodyl* (Bisacodyl*) 5 Mg Tablet.dr, 5 MG PO DAILY PRN for CONSTIPATION for 28 Days Prov:KENZIE BROWNE MD 02/28/17 Tramadol HCl (Tramadol HCl) 50 Mg Tablet, 50 MG PO TID PRN for PAIN LEVEL 4-7 for 14 Days, TAB Prov:KENZIE BROWNE MD 02/28/17 Hydralazine Hcl* (Apresoline*) 50 Mg Tab, 100 MG PO TID for 28 Days, TAB Prov:KENZIE BROWNE MD 02/28/17 Doxazosin Mesylate* (Cardura*) 2 Mg Tablet, 2 MG PO HS for 14 Days, TAB Prov:KENZIE BROWNE MD 02/28/17 Heparin Sod (Porcine)* (Heparin*) 5,000 Unit/0.5 Ml Soln, 5000 UNIT SC Q12 for 1 Day Prov:KENZIE BROWNE MD 02/28/17 Nifedipine* (Nifedipine ER*) 60 Mg Tablet.sa, 60 MG PO BID, #120 TAB.SA Prov:MARVIN WATKINS MD 04/10/14 Reported Medications Ondansetron Hcl* (Zofran*) 4 Mg Tablet, 4 MG PO DAILY PRN for NAUSEA AND OR V OMITING, TAB 04/09/14 Metoclopramide* (Reglan*) 5 Mg Tablet, 5 MG PO DAILY PRN for NAUSEA AND/OR VOMITING, TAB 04/09/14 Calcium Acetate* (Calcium Acetate*) 667 Mg Capsule, 667 MG PO WITH MEALS, CAP 04/09/14 Multivit/Ca Carb/B Cmplx/Fa* (Beronica-Morgan*) 1 Tab Tab, 1 TAB PO DAILY, TAB 04/09/14 Fluoxetine Hcl* (Prozac*) 20 Mg Capsule, 20 MG PO DAILY 01/09/12 Famotidine* (Pepcid*) 40 Mg Tablet, 40 MG PO HS 01/09/12 Esomeprazole Mag Trihydrate (Nexium) 40 Mg Capsule.dr, 40 MG PO DAILY 01/09/12 Losartan Potassium* (Cozaar*) 50 Mg Tablet, 50 MG PO BID 01/09/12 Current Medications Hydralazine HCl (Apresoline) 10 mg Q6H PRN IV ELEVATED BLOOD PRESSURE Last administered on 05/04/18at 13:41; Admin Dose 10 MG; Start 05/04/18 at 13:30 Bisacodyl (Dulcolax) 5 mg DAILY PRN PO CONSTIPATION; Start 05/04/18 at 14:30; Status Hold Nifedipine (Procardia Xl) 60 mg BID PO ; Start 05/04/18 at 21:00 Dextrose/Sodium Chloride 500 ml @ 40 mls/hr [id number] IV ; Start 05/04/18 at 16:00 Pantoprazole (Protonix Iv) 40 mg BID@06,18 IV ; Start 05/04/18 at 18:00 Insulin Aspart (Novolog Insulin Pen) NOVOLOG *MILD* ALGORI... Q4 SC ; Start 05/04/18 at 17:00 Miscellaneous Information 1 ea NOTE XX ; Start 05/04/18 at 15:30 Glucose (Glutose) 15 gm Q15M PRN PO DECREASED GLUCOSE; Start 05/04/18 at 15:30 Glucose (Glutose) 22.5 gm Q15M PRN PO DECREASED GLUCOSE; Start 05/04/18 at 15:30 Dextrose (D50w Syringe) 25 ml Q15M PRN IV DECREASED GLUCOSE; Start 05/04/18 at 15:30 Dextrose (D50w Syringe) 50 ml Q15M PRN IV DECREASED GLUCOSE; Start 05/04/18 at 15:30 Glucagon (Glucagen) 1 mg Q15M PRN IM DECREASED GLUCOSE; Start 05/04/18 at 15:30 Glucose (Glutose) 15 gm Q15M PRN BUCCAL DECREASED GLUCOSE; Start 05/04/18 at 15:30 Metoclopramide HCl (Reglan) 5 mg Q6 IV ; Start 05/04/18 at 18:00 Meds reviewed: Yes Allergies Coded Allergies: No Known Allergies (Verified Allergy, Mild, 02/22/17) Allergies Reviewed: Yes Labs/Studies Labs Reviewed: Reviewed by anesthesiologist Result Diagram: 05/04/1818 05/04/1819 Laboratory Tests 05/04/18 09:18 05/04/18 09:19 Blood Bank Test 05/04/18 09:19 Antibody Screen NEGATIVE Blood Type O POSITIVE test: N/A Pre-procedure Exam Last vitals Vital Signs Date Temp Pulse Resp B/P (MAP) Pulse Ox O2 O2 Flow FiO2 Time Delivery Rate 05/04/18 97.5 71 18 150/93 94 14:41 (112) 05/04/18 Room Air 13:00 05/04/18 2 09:38 Airway: Adequate mouth opening Mallampati: Mallampati II Teeth: Normal Lung: Normal Heart: Normal ASA Physical Status ASA physical status: 3 Emergency: None Planned Anesthetic General/MAC: MAC Pre-operative Attestations Prior to commencing anesthesia and surgery, the patient was re-evaluated, there was verification of: *The patient's identity *The results of appropriate recent lab work and preoperative vital signs *The above evaluation not changing prior to induction *Anesthetic plan, risk benefits, alternative and complications discussed with patient/family; questions answered; patient/family understands, accepts and wishes to proceed. GABINO POWERS May 04, 2018 16:55
[2018-05-04] MEDS ORDERED: INSULIN ASPART [NOVOLOG] 3 ML PEN SC SCH ×2 (17:00→17:55)
--- NOTE | 2018-05-04 17:00 | NUR ---
RN NOTES: Received patient direct admit from ER at 1215pm, patient is from [facility]; patient is oriented x3, sleepy but easily arousable, Ativan was given in ER; no c/o pain or discomfort noted upon assessment; no SOB/respiratory distress noted; with NGT on right nare connected to low intermittent suction as ordered draining moderate coffee ground output, Dr. Prater is aware; hemodialysis patient with KIMBERLEY AVF; with PIV on RFA g. 22; patient noted with elevated BP, PRN Hydralazine given as needed with good effectiveness noted; skin assessment done with Rika GERWAL, pictures taken; history taken from daughter Preethi; kept clean, dry and comfortable; call light placed within reached; all needs attended. Scheduled for EGD on Monday with Dr. Pollock, pending informed consent. For hemodialysis tonight.
--- NOTE | 2018-05-04 17:28 | CONS ---
DATE OF ADMISSION: 05/04/2018 DATE OF CONSULTATION: TYPE OF CONSULTATION: Gastroenterology. HISTORY OF PRESENT ILLNESS: The patient is a 73-year-old female with history of diabetes mellitus, r enal failure, hypertension, diabetic nephropathy, GERD, presented to the emergency room with vomiting of the blood. She was brought by paramedics. 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 PAST MEDICAL HISTORY: Coronary artery disease, diabetes mellitus, hypertension, peptic ulcer disease , renal disease. HOME MEDICATIONS: All reviewed. SOCIAL HISTORY: No alcohol, no smoking. PAST SURGICAL HISTORY: Fistula. ALLERGIES: NONE. PHYSICAL EXAMINATION: GENERAL: Awake. VITAL SIGNS: Otherwise stable. HEENT: Unremarkable. NECK: Supple. No thyromegaly, no lymphadenopathy. CARDIOVASCULAR: No murmur, gallop or click. LUNGS: Clear. ABDOMEN: Benign. EXTREMITIES: No edema. CENTRAL NERVOUS SYSTEM: Grossly within normal limits. LABORATORY DATA: Her hematocrit is stable at 40, WBC is 9.1. Glucose was 271 high, BUN was 81. IMPRESSION: 1. Hematemesis, coffee-ground colored material. I witnessed it personally. 2. Diabetes mellitus with diabetic nephropathy. 3. Hypertension. 4. Coronary artery disease. 5. Renal failure. PLAN: Continue with PPI. We will add Reglan. Monitor H and H and since hematocrit is stable and th e patient is not actively bleeding, we will proceed with EGD on Monday. Dictated By: CARO MACEDO/NTS Conf#: [id number] DID#: [id number] CC: AMADO JIM; KENZIE BROWNE MD;*EndCC*
[2018-05-04] MEDS ORDERED: CALCIUM ACETATE 667 MG CAP PO SCH (17:55)
[2018-05-04] MEDS: METOCLOPRAMIDE 10 MG INJ IV SCH (18:46)
[2018-05-04] MEDS: PANTOPRAZOLE 40 MG INJ IV SCH (18:47)
--- NOTE | 2018-05-04 19:05 | NUR ---
[facility] per Annie from [facility], Dialysis will happen after 11pm onwards. Confirmation # [id number].
[2018-05-04 20:15] VITALS: BP 125/55; PULSE 68; RESP 18
[2018-05-04] MEDS ORDERED: LOSARTAN 50 MG TAB PO SCH (21:00)
[2018-05-04] MEDS ORDERED: FAMOTIDINE 20 MG TAB PO SCH (21:00)
[2018-05-04] MEDS: NIFEdipine (XL) 60 MG TAB PO SCH (21:00)
[2018-05-04] MEDS: INSULIN ASPART [NOVOLOG] 3 ML PEN SC SCH (21:00)
[2018-05-05] VITALS (20 sets, daily range): BP systolic 86–168; BP diastolic 39–70; PULSE 56–72; RESP 12–19
[2018-05-05] MEDS: METOCLOPRAMIDE 10 MG INJ IV SCH ×4 (00:09→18:27)
[2018-05-05] MEDS: INSULIN ASPART [NOVOLOG] 3 ML PEN SC SCH ×6 (01:42→21:19)
[2018-05-05] MEDS ORDERED: ACCU-CHEK XX SCH (02:00)
[2018-05-05] MEDS: DEXTROSE 5%-0.45% NACL 500 ML IV SCH ×2 (05:16→17:00)
[2018-05-05] MEDS: PANTOPRAZOLE 40 MG INJ IV SCH ×2 (05:20→18:27)
[2018-05-05] MEDS: morphine 2 MG INJ IV PRN (06:11)
--- NOTE | 2018-05-05 06:35 | NUR ---
Patient alert, oriented x3, in the morning after HD become slightly restless and wants to step out from the bed, was trying to pull out NG tube; because of that was transferred to the room 429 in the front of nursing station; otherwise at 4 am no more active bleeding form the stomach, coming out clear gastric content; after HD BS slightly dropped to 100/50 mm Hg.
[2018-05-05] MEDS ORDERED: MULTIVIT/CA CARB/B CMPLX/FA TAB PO SCH (09:00)
[2018-05-05] MEDS ORDERED: FLUOXETINE 20 MG CAP PO SCH (09:00)
[2018-05-05] MEDS: NIFEdipine (XL) 60 MG TAB PO SCH ×2 (09:00→21:00)
--- NOTE | 2018-05-05 12:52 | NUR ---
WOUND CONSULTATION NOTE: 73 year old female with a PMH of diabetic neuropathy, HTN, CAD and renal failure presents with coffee-ground emesis. Patient is pending upper endoscopy. Currently, she has a NGT to LIWS with evidence of dark brown aspirate in the canister. She is drowsy but shakes head "no" when asked if in pain, currently maintained on oxygen via nasal cannula, she does require some moderate assistance to turn and reposition. I did notice the patient is wearing a necklace with keys on it that is wrapped around her neck and wrapped again under her arm. Wound care consult was requested for a DM foot ulcer on left dorsal foot. ASSESSMENT & RECOMMENDATION: 1. Left Dorsal foot DM Ulcer which is completely obscured by a thick scab and callus. There is no open wound noted -May apply Betadine to the area and allow to dry daily . 2. Skin Prophylaxis - Please remove any taped devices or additional itmes that are in close contact to patient's skin to prevent breakdown - Reposition every 2 hours. - Limit HOB <30 degree unless medically contraindicated - Float heels off bed with pillows - Bilateral heels and ankles: Protect with Allevyn heels. Change foam dressing every 3 days and as needed. Assess skin under dressing every shift. Patient was seen and recommendations discussed with primary RN, Lorrie. Rosa Maria Aparicio, MSN, RN, CCRN, C
--- NOTE | 2018-05-05 14:12 | CONS ---
Assessment/Plan Assessment/Plan Assessment/Plan (Daily) IMPRESSION: 1. Hematemesis, coffee-ground colored material. I witnessed it personally. No NG tube aspirates is green in color 2. Diabetes mellitus with diabetic nephropathy. 3. Hypertension. 4. Coronary artery disease. 5. Renal failure. PLAN: Continue with PPI. We will add Reglan. Monitor H and H and since hematocrit is stable and the patient is not actively bleeding, we will proceed w ith EGD on Monday. DC NG tube Clear liquid diet EGD on Monday Consultation Date/Type/Reason Admit Date/Time May 04, 2018 at 11:08 Initial Consult Date Date/Time of Note DATE: 05/05/18 TIME: 14:11 24 HR Interval Summary Constitutional: no complaints, improved Exam/Review of Systems Exam Vitals Vital Signs Date Temp Pulse Resp B/P (MAP) Pulse Ox O2 O2 Flow FiO2 Time Delivery Rate 05/05/18 64 150/65 13:06 (93) 05/05/18 98.6 12 92 Room Air 07:46 05/04/18 2 09:38 Intake and Output 05/04/18 05/04/18 05/05/18 1515:00 23:00 07:00 IntakeIntake Total 500 ml OutputOutput Total 200 ml 450 ml 800 ml BalanceBalance -200 ml -450 ml -300 ml Constitutional: alert, oriented, well developed Psych: no complaints, nl mood/affect Head: normocephalic, atraumatic Eyes: nl conjunctiva, EOMI, nl lids, nl sclera, PERRL ENMT: nl external ears & nose, nl lips & teeth, nl nasal mucosa & septum Neck: supple, non-tender Respiratory: clear to auscultation, normal air movement Cardiovascular: regular rate and rhythm, nl pulses Gastrointestinal: soft, nl liver, spleen, non-tender Musculoskeletal: nl extremities to inspection, nl gait and stance Extremities: normal pulses Neurological: EYE GLASS FRAME POLISHER II-XII intact, nl mental status, nl speech, nl strength Skin: nl turgor; No rash or lesions Lymph: nl lymph nodes Results Result Diagram: 05/04/18 1846 05/04/18918 Results 24hrs Laboratory Tests Test 05/04/18 16:47 05/04/18 18:46 05/04/18 20:36 05/05/18 01:33 Bedside Glucose 187 152 173 Hemoglobin 13.2 Hematocrit 40.9 Test 05/05/18 05:11 05/05/18 09:32 05/05/18 12:55 Bedside Glucose 116 130 111 Medications Medication Current Medications Hydralazine HCl (Apresoline) 10 mg Q6H PRN IV ELEVATED BLOOD PRESSURE Last administered on 05/04/18at 13:41; Admin Dose 10 MG; Start 05/04/18 at 13:30 Bisacodyl (Dulcolax) 5 mg DAILY PRN PO CONSTIPATION; Start 05/04/18 at 14:30; Status Hold Nifedipine (Procardia Xl) 60 mg BID PO ; Start 05/04/18 at 21:00 Dextrose/Sodium Chloride 500 ml @ 40 mls/hr [id number] IV Last administered on 05/05/18at 05:16; Admin Dose 40 MLS/HR; Start 05/04/18 at 16:00 Pantoprazole (Protonix Iv) 40 mg BID@06,18 IV Last administered on 05/05/18at 05:20; Admin Dose 40 MG; Start 05/04/18 at 18:00 Miscellaneous Information 1 ea NOTE XX ; Start 05/04/18 at 15:30 Glucose (Glutose) 15 gm Q15M PRN PO DECREASED GLUCOSE; Start 05/04/18 at 15:30 Glucose (Glutose) 22.5 gm Q15M PRN PO DECREASED GLUCOSE; Start 05/04/18 at 15:30 Dextrose (D50w Syringe) 25 ml Q15M PRN IV DECREASED GLUCOSE; Start 05/04/18 at 15:30 Dextrose (D50w Syringe) 50 ml Q15M PRN IV DECREASED GLUCOSE; Start 05/04/18 at 15:30 Glucagon (Glucagen) 1 mg Q15M PRN IM DECREASED GLUCOSE; Start 05/04/18 at 15:30 Glucose (Glutose) 15 gm Q15M PRN BUCCAL DECREASED GLUCOSE; Start 05/04/18 at 15:30 Metoclopramide HCl (Reglan) 5 mg Q6 IV Last administered on 05/05/18at 12:25; Admin Dose 5 MG; Start 05/04/18 at 18:00 Morphine Sulfate (morphine) 1 mg Q4H PRN IV SEVERE PAIN LEVEL 7-10 Last administered on 05/05/18at 06:11; Admin Dose 1 MG; Start 05/04/18 at 18:00 Insulin Aspart (Novolog Insulin Pen) NOVOLOG *MILD* ALGORI... Q4 SC Last administered on 05/05/18at 01:42; Admin Dose 1 UNIT; Start 05/04/18 at 21:00 CARO APPLE MD May 05, 2018 14:12
--- NOTE | 2018-05-05 14:42 | PN ---
Date/Time of Note Date/Time of Note DATE: 05/05/18 TIME: 14:42 Assessment/Plan VTE Prophylaxis Risk score (from Ns)>0 risk: 2 SCD applied (from Ns): Yes Pharmacological prophylaxis: NA/contraindicated Pharm contraindication: surgical contra Lines/Catheters IV [facility]ter Type (from [email or web address] Peripheral IV Urinary Cath still in place: No Assessment/Plan Hospital Course 1. Active GI bleed. 2. Arthritis 3. End-stage renal disease, on HD. 4. Diabetes mellitus type II with hyperglycemia. 5. Hypertension. 6. Overweight 7. Hx of GI bleed in past 8. Diabetic nephropathy, retinopathy and neuropathy. 9. Arrhythmia. 10. Hypercalcemia 04/28 ESDR Assessment/Plan -GI prophylaxis protonix IV BID -DVT prophylaxis SCD bilaterally -Protonix IV BID -avoid anxiolytics. -HD was yesterday -clear liquid -Dr Pollock, GI specialist -EGD Monday Result Diagram: 05/04/186 05/04/18918 Results 24hrs Laboratory Tests Test 05/04/18 16:47 05/04/18 18:46 05/04/18 20:36 05/05/18 01:33 Bedside Glucose 187 152 173 Hemoglobin 13.2 Hematocrit 40.9 Test 05/05/18 05:11 05/05/18 09:32 05/05/18 12:55 Bedside Glucose 116 130 111 Subjective 24 Hr Interval Summary Free Text/Dictation lethargic Exam/Review of Systems Exam Vitals Vital Signs Date Temp Pulse Resp B/P (MAP) Pulse Ox O2 O2 Flow FiO2 Time Delivery Rate 05/05/18 98.0 65 13 161/70 89 Room Air 14:00 (100) 05/04/18 2 09:38 Intake and Output 05/04/18 05/04/18 05/05/18 1515:00 23:00 07:00 IntakeIntake Total 500 ml OutputOutput Total 200 ml 450 ml 800 ml BalanceBalance -200 ml -450 ml -300 ml Exam left Av arm fistula Neck: supple Respiratory: clear to auscultation Cardiovascular: regular rate and rhythm Gastrointestinal: soft Neurological: confused Results Results 24hrs Laboratory Tests Test 05/04/18 16:47 05/04/18 18:46 05/04/18 20:36 05/05/18 01:33 Bedside Glucose 187 152 173 Hemoglobin 13.2 Hematocrit 40.9 Test 05/05/18 05:11 05/05/18 09:32 05/05/18 12:55 Bedside Glucose 116 130 111 Medications Medication Current Medications Hydralazine HCl (Apresoline) 10 mg Q6H PRN IV ELEVATED BLOOD PRESSURE Last administered on 05/04/18at 13:41; Admin Dose 10 MG; Start 05/04/18 at 13:30 Bisacodyl (Dulcolax) 5 mg DAILY PRN PO CONSTIPATION; Start 05/04/18 at 14:30; Status Hold Nifedipine (Procardia Xl) 60 mg BID PO ; Start 05/04/18 at 21:00 Dextrose/Sodium Chloride 500 ml @ 40 mls/hr [id number] IV Last administered on 05/05/18at 05:16; Admin Dose 40 MLS/HR; Start 05/04/18 at 16:00 Pantoprazole (Protonix Iv) 40 mg BID@06,18 IV Last administered on 05/05/18at 05:20; Admin Dose 40 MG; Start 05/04/18 at 18:00 Miscellaneous Information 1 ea NOTE XX ; Start 05/04/18 at 15:30 Glucose (Glutose) 15 gm Q15M PRN PO DECREASED GLUCOSE; Start 05/04/18 at 15:30 Glucose (Glutose) 22.5 gm Q15M PRN PO DECREASED GLUCOSE; Start 05/04/18 at 15:30 Dextrose (D50w Syringe) 25 ml Q15M PRN IV DECREASED GLUCOSE; Start 05/04/18 at 15:30 Dextrose (D50w Syringe) 50 ml Q15M PRN IV DECREASED GLUCOSE; Start 05/04/18 at 15:30 Glucagon (Glucagen) 1 mg Q15M PRN IM DECREASED GLUCOSE; Start 05/04/18 at 15:30 Glucose (Glutose) 15 gm Q15M PRN BUCCAL DECREASED GLUCOSE; Start 05/04/18 at 15:30 Metoclopramide HCl (Reglan) 5 mg Q6 IV Last administered on 05/05/18at 12:25; Admin Dose 5 MG; Start 05/04/18 at 18:00 Morphine Sulfate (morphine) 1 mg Q4H PRN IV SEVERE PAIN LEVEL 7-10 Last administered on 05/05/18at 06:11; Admin Dose 1 MG; Start 05/04/18 at 18:00 Insulin Aspart (Novolog Insulin Pen) NOVOLOG *MILD* ALGORI... Q4 SC Last administered on 05/05/18at 01:42; Admin Dose 1 UNIT; Start 05/04/18 at 21:00 MAGNO DICK May 05, 2018 14:42
--- NOTE | 2018-05-05 19:38 | NUR ---
RN NOTES =alert oriented khmer speaking only,. NGT d/c this AM as per Dr De Leon order and started her on clear liquid diet tolerated no N/V seen by wound nurse today .
[2018-05-06] MEDS: METOCLOPRAMIDE 10 MG INJ IV SCH ×5 (00:40→23:38)
[2018-05-06 01:43] VITALS: BP 128/68; PULSE 57; RESP 18
[2018-05-06] MEDS: PANTOPRAZOLE 40 MG INJ IV SCH ×2 (05:50→18:10)
[2018-05-06] MEDS ORDERED: DEXTROSE 5%-0.45% NACL 1,000 ML IV SCH (05:54)
[2018-05-06] MEDS: DEXTROSE 5%-0.45% NACL 1,000 ML IV SCH (06:15)
--- NOTE | 2018-05-06 06:45 | NUR ---
EOSS Patient alert, oriented no complained of discomfort. Vital sign stable no respiratory distress. KIMBERLEY fistula had good bruit and thrill. Clear liquid tolerated, no nausea no vomiting. Blood sugar stable, assisted in repositioning, all needs attended, call light is within reach
[2018-05-06] MEDS: INSULIN ASPART [NOVOLOG] 3 ML PEN SC SCH ×4 (07:50→20:51)
[2018-05-06 08:49] VITALS: BP 154/65; PULSE 52; RESP 18
[2018-05-06] MEDS: NIFEdipine (XL) 60 MG TAB PO SCH ×2 (09:27→20:51)
--- NOTE | 2018-05-06 10:40 | NUR ---
Nutrition Notes: Pt w/ESRD on HD. BUN/Cr elevated. POC gluc WNL: 103, 104, 95, 78. Pt w/DM ulcer on left sole heel-dry per nursing. PO good, 75-100% on cl liquids. BM every 2-[address] Recommendation 1. Recommend to advance diet to solids within 48 hrs to augment kcal/protein intake, especially while on HD. 2. Renavite daily
--- NOTE | 2018-05-06 11:36 | PN ---
Date/Time of Note Date/Time of Note DATE: 05/06/18 TIME: 11:35 Assessment/Plan VTE Prophylaxis Risk score (from Ns)>0 risk: 3 SCD applied (from [facility] Yes Pharmacological prophylaxis: NA/contraindicated Pharm contraindication: surgical contra Lines/Catheters IV Catheter Type (from [facility]): Peripheral IV Urinary Cath still in place: No Assessment/Plan Hospital Course 1. Active GI bleed. 2. Arthritis 3. End-stage renal disease, on HD. 4. Diabetes mellitus type II with hyperglycemia. 5. Hypertension. 6. Overweight 7. Hx of GI bleed in past 8. Diabetic nephropathy, retinopathy and neuropathy. 9. Arrhythmia. 10. Hypercalcemia 2/2 ESDR, better 11. compression fracture of T12 Assessment/Plan -GI prophylaxis protonix IV BID no signs of bleeding -DVT prophylaxis SCD bilaterally -Protonix IV BID -avoid anxiolytics. -HD was yesterday -clear liquid, tolerated well -Dr Pollock, GI specialist -EGD Monday Result Diagram: 05/06/1842505/06/186 Results 24hrs Laboratory Tests Test 05/05/18 12:55 05/05/18 14:12 05/05/18 17:46 05/05/18 21:09 Bedside Glucose 111 112 204 White Blood Count 9.6 Red Blood Count 4.03 L Hemoglobin 12.7 Hematocrit 41.1 Mean Corpuscular 102.0 H Volume Mean Corpuscular 31.5 Hemoglobin Mean Corpuscular 30.9 L Hemoglobin Concent Red Cell 14.9 H Distribution Width Platelet Count 144 # Mean Platelet Volume 11.5 H Immature 0.300 Granulocytes % Neutrophils % 79.1 H Lymphocytes % 10.1 L Monocytes % 7.5 Eosinophils % 2.5 Basophils % 0.5 Nucleated Red Blood 0.0 Cells % Immature 0.030 Granulocytes # Neutrophils # 7.6 H Lymphocytes # 1.0 Monocytes # 0.7 Eosinophils # 0.2 Basophils # 0.1 Nucleated Red Blood 0.0 Cells # Sodium Level 139 Potassium Level 4.8 Chloride Level 94 #L Carbon Dioxide Level 32 H Anion Gap 13 Blood Urea Nitrogen 41 #H Creatinine 5.84 #H Est Glomerular Filtrat Rate mL/min Glucose Level 128 # Hemoglobin A1c 5.7 Calcium Level 9.0 Test 05/06/18 02:02 05/06/18 04:26 05/06/18 06:04 05/06/18 08:17 Bedside Glucose 78 104 103 White Blood Count 6.5 # Red Blood Count 3.45 L Hemoglobin 11.0 L Hematocrit 35.2 L Mean Corpuscular 102.0 H Volume Mean Corpuscular 31.9 Hemoglobin Mean Corpuscular 31.3 L Hemoglobin Concent Red Cell 14.4 Distribution Width Platelet Count 132 L Mean Platelet Volume 10.5 H Immature 0.300 Granulocytes % Neutrophils % 61.1 Lymphocytes % 22.5 Monocytes % 9.5 Eosinophils % 6.1 Basophils % 0.5 Nucleated Red Blood 0.0 Cells % Immature 0.020 Granulocytes # Neutrophils # 4.0 Lymphocytes # 1.5 Monocytes # 0.6 Eosinophils # 0.4 Basophils # 0.0 Nucleated Red Blood 0.0 Cells # Sodium Level 134 L Potassium Level 4.6 Chloride Level 94 L Carbon Dioxide Level 27 Anion Gap 13 Blood Urea Nitrogen 51 H Creatinine 6.95 H Est Glomerular Filtrat Rate mL/min Glucose Level 95 Calcium Level 8.3 L Subjective 24 Hr Interval Summary Constitutional: no complaints, improved Exam/Review of Systems Exam Vitals Vital Signs Date Temp Pulse Resp B/P (MAP) Pulse Ox O2 O2 Flow FiO2 Time Delivery Rate 05/06/18 98.2 52 18 154/65 95 Room Air 08:49 (94) 05/04/18 2 09:38 Intake and Output 05/05/18 05/05/18 05/06/18 1515:00 23:00 07:00 IntakeIntake Total 960 ml 200 ml BalanceBalance 960 ml 200 ml Exam left arm av fistula Constitutional: alert, oriented Neck: supple Respiratory: clear to auscultation Cardiovascular: regular rate and rhythm Gastrointestinal: soft Results Results 24hrs Laboratory Tests Test 05/05/18 12:55 05/05/18 14:12 05/05/18 17:46 05/05/18 21:09 Bedside Glucose 111 112 204 White Blood Count 9.6 Red Blood Count 4.03 L Hemoglobin 12.7 Hematocrit 41.1 Mean Corpuscular 102.0 H Volume Mean Corpuscular 31.5 Hemoglobin Mean Corpuscular 30.9 L Hemoglobin Concent Red Cell 14.9 H Distribution Width Platelet Count 144 # Mean Platelet Volume 11.5 H Immature 0.300 Granulocytes % Neutrophils % 79.1 H Lymphocytes % 10.1 L Monocytes % 7.5 Eosinophils % 2.5 Basophils % 0.5 Nucleated Red Blood 0.0 Cells % Immature 0.030 Granulocytes # Neutrophils # 7.6 H Lymphocytes # 1.0 Monocytes # 0.7 Eosinophils # 0.2 Basophils # 0.1 Nucleated Red Blood 0.0 Cells # Sodium Level 139 Potassium Level 4.8 Chloride Level 94 #L Carbon Dioxide Level 32 H Anion Gap 13 Blood Urea Nitrogen 41 #H Creatinine 5.84 #H Est Glomerular Filtrat Rate mL/min Glucose Level 128 # Hemoglobin A1c 5.7 Calcium Level 9.0 Test 05/06/18 02:02 05/06/18 04:26 05/06/18 06:04 05/06/18 08:17 Bedside Glucose 78 104 103 White Blood Count 6.5 # Red Blood Count 3.45 L Hemoglobin 11.0 L Hematocrit 35.2 L Mean Corpuscular 102.0 H Volume Mean Corpuscular 31.9 Hemoglobin Mean Corpuscular 31.3 L Hemoglobin Concent Red Cell 14.4 Distribution Width Platelet Count 132 L Mean Platelet Volume 10.5 H Immature 0.300 Granulocytes % Neutrophils % 61.1 Lymphocytes % 22.5 Monocytes % 9.5 Eosinophils % 6.1 Basophils % 0.5 Nucleated Red Blood 0.0 Cells % Immature 0.020 Granulocytes # Neutrophils # 4.0 Lymphocytes # 1.5 Monocytes # 0.6 Eosinophils # 0.4 Basophils # 0.0 Nucleated Red Blood 0.0 Cells # Sodium Level 134 L Potassium Level 4.6 Chloride Level 94 L Carbon Dioxide Level 27 Anion Gap 13 Blood Urea Nitrogen 51 H Creatinine 6.95 H Est Glomerular Filtrat Rate mL/min Glucose Level 95 Calcium Level 8.3 L Medications Medication Current Medications Hydralazine HCl (Apresoline) 10 mg Q6H PRN IV ELEVATED BLOOD PRESSURE Last administered on 05/04/18at 13:41; Admin Dose 10 MG; Start 05/04/18 at 13:30 Bisacodyl (Dulcolax) 5 mg DAILY PRN PO CONSTIPATION; Start 05/04/18 at 14:30; Status Hold Nifedipine (Procardia Xl) 60 mg BID PO Last administered on 05/06/18at 09:27; Admin Dose 60 MG; Start 05/04/18 at 21:00 Pantoprazole (Protonix Iv) 40 mg BID@,18 IV Last administered on 05/06/18at 05:50; Admin Dose 40 MG; Start 05/04/18 at 18:00 Miscellaneous Information 1 ea NOTE XX ; Start 05/04/18 at 15:30 Glucose (Glutose) 15 gm Q15M PRN PO DECREASED GLUCOSE; Start 05/04/18 at 15:30 Glucose (Glutose) 22.5 gm Q15M PRN PO DECREASED GLUCOSE; Start 05/04/18 at 15:30 Dextrose (D50w Syringe) 25 ml Q15M PRN IV DECREASED GLUCOSE; Start 05/04/18 at 15:30 Dextrose (D50w Syringe) 50 ml Q15M PRN IV DECREASED GLUCOSE; Start 05/04/18 at 15:30 Glucagon (Glucagen) 1 mg Q15M PRN IM DECREASED GLUCOSE; Start 05/04/18 at 15:30 Glucose (Glutose) 15 gm Q15M PRN BUCCAL DECREASED GLUCOSE; Start 05/04/18 at 15:30 Metoclopramide HCl (Reglan) 5 mg Q6 IV Last administered on 05/06/18at 05:50; Admin Dose 5 MG; Start 05/04/18 at 18:00 Morphine Sulfate (morphine) 1 mg Q4H PRN IV SEVERE PAIN LEVEL 7-10 Last administered on 05/05/18at 06:11; Admin Dose 1 MG; Start 05/04/18 at 18:00 Insulin Aspart (Novolog Insulin Pen) NOVOLOG *MILD* ALGORITHM WITH MEALS BEDTIME SC ; Start 05/06/18 at 07:50 Dextrose/Sodium Chloride 1,000 ml @ 40 mls/hr Q24H IV Last administered on 05/06/18at 06:15; Admin Dose 40 MLS/HR; Start 05/06/18 at 06:00 MAGNO DICK May 06, 2018 11:36
[2018-05-06] MEDS ORDERED: hydrALAzine 20 MG INJ IV PRN (12:00)
[2018-05-06 14:00] VITALS: BP 135/63; PULSE 58; RESP 18
--- NOTE | 2018-05-06 17:04 | CONS ---
Assessment/Plan Assessment/Plan Assessment/Plan (Daily) Assessment/Plan Assessment/Plan (Daily) IMPRESSION: 1. Hematemesis, coffee-ground colored material. I witnessed it personally. No NG tube aspirates is green in color 2. Diabetes mellitus with diabetic nephropathy. 3. Hypertension. 4. Coronary artery disease. 5. Renal failure. PLAN: Continue with PPI. We will add Reglan. Monitor H and H and since hematocrit is stable and the patient is not actively bleeding, we will proceed with EGD on Monday. DC NG tube Clear liquid diet EGD on Monday Consultation Date/Type/Reason Admit Date/Time May 04, 2018 at 11:08 Initial Consult Date Date/Time of Note DATE: 05/06/18 TIME: 17:04 24 HR Interval Summary Constitutional: improved Exam/Review of Systems Exam Vitals Vital Signs Date Temp Pulse Resp B/P (MAP) Pulse Ox O2 O2 Flow FiO2 Time Delivery Rate 05/06/18 98.2 52 18 154/65 95 Room Air 08:49 (94) 05/04/18 2 09:38 Intake and Output 05/05/18 05/05/18 05/06/18 1515:00 23:00 07:00 IntakeIntake Total 960 ml 200 ml BalanceBalance 960 ml 200 ml Constitutional: alert, oriented, well developed Psych: no complaints, nl mood/affect Head: normocephalic, atraumatic Eyes: nl conjunctiva, EOMI, nl lids, nl sclera, PERRL ENMT: nl external ears & nose, nl lips & teeth, nl nasal mucosa & septum Neck: supple, non-tender Respiratory: clear to auscultation, normal air movement Cardiovascular: regular rate and rhythm, nl pulses Gastrointestinal: soft, nl liver, spleen, non-tender Musculoskeletal: nl extremities to inspection, nl gait and stance Extremities: normal pulses Neurological: ENROLLMENT COUNSELOR II-XII intact, nl mental status, nl speech, nl strength Skin: nl turgor; No rash or lesions Lymph: nl lymph nodes Results Result Diagram: 05/06/1842505/06/18425 Results 24hrs Laboratory Tests Test 05/05/18 17:46 05/05/18 21:09 05/06/18 02:02 05/06/18 04:26 Bedside Glucose 112 204 78 White Blood Count 6.5 # Red Blood Count 3.45 L Hemoglobin 11.0 L Hematocrit 35.2 L Mean Corpuscular 102.0 H Volume Mean Corpuscular 31.9 Hemoglobin Mean Corpuscular 31.3 L Hemoglobin Concent Red Cell 14.4 Distribution Width Platelet Count 132 L Mean Platelet Volume 10.5 H Immature 0.300 Granulocytes % Neutrophils % 61.1 Lymphocytes % 22.5 Monocytes % 9.5 Eosinophils % 6.1 Basophils % 0.5 Nucleated Red Blood 0.0 Cells % Immature 0.020 Granulocytes # Neutrophils # 4.0 Lymphocytes # 1.5 Monocytes # 0.6 Eosinophils # 0.4 Basophils # 0.0 Nucleated Red Blood 0.0 Cells # Sodium Level 134 L Potassium Level 4.6 Chloride Level 94 L Carbon Dioxide Level 27 Anion Gap 13 Blood Urea Nitrogen 51 H Creatinine 6.95 H Est Glomerular Filtrat Rate mL/min Glucose Level 95 Calcium Level 8.3 L Test 05/06/18 06:04 05/06/18 08:17 05/06/18 12:32 Bedside Glucose 104 103 146 Medications Medication Current Medications Hydralazine HCl (Apresoline) 10 mg Q6H PRN IV ELEVATED BLOOD PRESSURE Last administered on 05/04/18at 13:41; Admin Dose 10 MG; Start 05/04/18 at 13:30 Bisacodyl (Dulcolax) 5 mg DAILY PRN PO CONSTIPATION; Start 05/04/18 at 14:30; Status Hold Nifedipine (Procardia Xl) 60 mg BID PO Last administered on 05/06/18at 09:27; Admin Dose 60 MG; Start 05/04/18 at 21:00 Pantoprazole (Protonix Iv) 40 mg BID@,18 IV Last administered on 05/06/18at 05:50; Admin Dose 40 MG; Start 05/04/18 at 18:00 Miscellaneous Information 1 ea NOTE XX ; Start 05/04/18 at 15:30 Glucose (Glutose) 15 gm Q15M PRN PO DECREASED GLUCOSE; Start 05/04/18 at 15:30 Glucose (Glutose) 22.5 gm Q15M PRN PO DECREASED GLUCOSE; Start 05/04/18 at 15:30 Dextrose (D50w Syringe) 25 ml Q15M PRN IV DECREASED GLUCOSE; Start 05/04/18 at 15:30 Dextrose (D50w Syringe) 50 ml Q15M PRN IV DECREASED GLUCOSE; Start 05/04/18 at 15:30 Glucagon (Glucagen) 1 mg Q15M PRN IM DECREASED GLUCOSE; Start 05/04/18 at 15:30 Glucose (Glutose) 15 gm Q15M PRN BUCCAL DECREASED GLUCOSE; Start 05/04/18 at 15:30 Metoclopramide HCl (Reglan) 5 mg Q6 IV Last administered on 05/06/18at 13:03; Admin Dose 5 MG; Start 05/04/18 at 18:00 Morphine Sulfate (morphine) 1 mg Q4H PRN IV SEVERE PAIN LEVEL 7-10 Last administered on 05/05/18at 06:11; Admin Dose 1 MG; Start 05/04/18 at 18:00 Insulin Aspart (Novolog Insulin Pen) NOVOLOG *MILD* ALGORITHM WITH MEALS BEDTIME SC Last administered on 05/06/18at 13:03; Admin Dose 1 UNIT; Start 05/06/18 at 07:50 Dextrose/Sodium Chloride 1,000 ml @ 40 mls/hr Q24H IV Last administered on at 06:15; Admin Dose 40 MLS/HR; Start 05/06/18 at 06:00 Hydralazine HCl (Apresoline) 10 mg Q6H PRN IV SBP above 140; Start 05/06/18 at 12:00 CARO APPLE MD May 06, 2018 17:04
--- NOTE | 2018-05-06 19:31 | NUR ---
RN NOTES PT IS STABLE, NO C/O PAIN OR DISCOMFORT, HAS BEEN REPOSITIONED FOR COMFORT, PT IS ON CLEAR LIQUID DIET AND TOLERATING WELL, NPO AFTER MIDNIGHT FOR EGD TOMORROW. CALL LIGHT WITHIN REACH, ENCOURAGED PT TO CALL FOR ASSISTANCE.
[2018-05-06 20:38] VITALS: BP 147/65; PULSE 60; RESP 18
--- NOTE | 2018-05-06 23:00 | NUR ---
RN NOTES: PATIENT REFUSED TO SIGN CONSENT FOR EGD AT THIS TIME.
[2018-05-07] VITALS (20 sets, daily range): BP systolic 113–159; BP diastolic 53–67; PULSE 50–93; RESP 16–19
--- NOTE | 2018-05-07 00:10 | NUR ---
RN NOTES: NPO POST MN ORDERED.
[2018-05-07] MEDS: METOCLOPRAMIDE 10 MG INJ IV SCH ×3 (05:18→17:35)
[2018-05-07] MEDS: PANTOPRAZOLE 40 MG INJ IV SCH ×2 (05:18→17:35)
--- NOTE | 2018-05-07 05:50 | NUR ---
RN NOTES: PLACED CALL TO LINNETTE AT FOR HEMODIALYSIS FOR TODAY. CONFIRMATION # [id number].
[2018-05-07] MEDS: DEXTROSE 5%-0.45% NACL 1,000 ML IV SCH ×2 (06:00→10:02)
--- NOTE | 2018-05-07 06:37 | NUR ---
EOSS: PATIENT BEEN ASSESSED FOR PAIN. PATIENT DENIES PAIN. PATIENT IS NPO POST MN FOR EGD. PATIENT IS FOR HEMODIALYSIS TODAY. [facility] BEEN CALLED AND CONFIRMED. PATIENT REMAIN ON IVF. LEFT FOOT BEEN CLEANSED WITH NS AND PAINTED WITH BETADINE. HOURLY ROUNDING RENDERED. FALL PRECAUTION OBSERVED. CALL LIGHT WITHIN REACH.
[2018-05-07] MEDS: INSULIN ASPART [NOVOLOG] 3 ML PEN SC SCH ×4 (08:30→20:26)
--- NOTE | 2018-05-07 08:34 | CONS ---
Assessment/Plan Assessment/Plan Hospital Course (Demo Recall) 1. Hematemesis, coffee-ground colored material. NG tube aspirates is green in color 2. Diabetes mellitus with diabetic nephropathy. 3. Hypertension. 4. Coronary artery disease. 5. Renal failure. PLAN: EGD postponed until tomorrow. Npo p MN. No anti coagulants. Labs in am. Clear liquid diet until MN Monitor HH and for active GI bleeding. PRN anti emetics Pt examined and plan of care discussed with Dr. Pollock Consultation Date/Type/Reason Admit Date/Time May 04, 2018 at 11:08 Initial Consult Date Date/Time of Note DATE: 05/07/18 TIME: 08:33 Exam/Review of Systems Exam Vitals Vital Signs Date Temp Pulse Resp B/P (MAP) Pulse Ox O2 O2 Flow FiO2 Time Delivery Rate 05/07/18 98.3 74 19 134/63 95 Room Air 08:05 (86) 05/04/18 2 09:38 Intake and Output 05/06/18 05/06/18 05/07/18 1515:00 23:00 07:00 IntakeIntake Total 200 ml 540 ml 400 ml BalanceBalance 200 ml 540 ml 400 ml Constitutional: alert, oriented Psych: no complaints Eyes: nl sclera, PERRL Gastrointestinal: soft, non-tender Results Result Diagram: 05/07/1842405/07/18424 Results 24hrs Laboratory Tests Test 05/06/18 12:32 05/06/18 17:29 05/06/18 20:50 05/07/18 04:25 Bedside Glucose 146 130 154 White Blood Count 5.0 # Red Blood Count 3.34 L Hemoglobin 10.8 L Hematocrit 32.5 L Mean Corpuscular 97.3 Volume Mean Corpuscular 32.3 Hemoglobin Mean Corpuscular 33.2 Hemoglobin Concent Red Cell 13.3 Distribution Width Platelet Count 144 Mean Platelet Volume 10.6 H Immature 0.200 Granulocytes % Neutrophils % 54.3 Lymphocytes % 24.7 Monocytes % 8.8 Eosinophils % 11.6 H Basophils % 0.4 Nucleated Red Blood 0.0 Cells % Immature 0.010 Granulocytes # Neutrophils # 2.7 Lymphocytes # 1.2 Monocytes # 0.4 Eosinophils # 0.6 H Basophils # 0.0 Nucleated Red Blood 0.0 Cells # Sodium Level 132 L Potassium Level 4.4 Chloride Level 92 L Carbon Dioxide Level 27 Anion Gap 13 Blood Urea Nitrogen 62 H Creatinine 8.43 H Est Glomerular Filtrat Rate mL/min Glucose Level 102 Calcium Level 8.0 L Medications Medication Current Medications Hydralazine HCl (Apresoline) 10 mg Q6H PRN IV ELEVATED BLOOD PRESSURE Last administered on 05/04/18at 13:41; Admin Dose 10 MG; Start 05/04/18 at 13:30 Bisacodyl (Dulcolax) 5 mg DAILY PRN PO CONSTIPATION; Start 05/04/18 at 14:30; Status Hold Nifedipine (Procardia Xl) 60 mg BID PO Last administered on 05/06/18at 20:51; Admin Dose 60 MG; Start 05/04/18 at 21:00 Pantoprazole (Protonix Iv) 40 mg BID@06,18 IV Last administered on 05/07/18at 05:18; Admin Dose 40 MG; Start 05/04/18 at 18:00 Miscellaneous Information 1 ea NOTE XX ; Start 05/04/18 at 15:30 Glucose (Glutose) 15 gm Q15M PRN PO DECREASED GLUCOSE; Start 05/04/18 at 15:30 Glucose (Glutose) 22.5 gm Q15M PRN PO DECREASED GLUCOSE; Start 05/04/18 at 15:30 Dextrose (D50w Syringe) 25 ml Q15M PRN IV DECREASED GLUCOSE; Start 05/04/18 at 15:30 Dextrose (D50w Syringe) 50 ml Q15M PRN IV DECREASED GLUCOSE; Start 05/04/18 at 15:30 Glucagon (Glucagen) 1 mg Q15M PRN IM DECREASED GLUCOSE; Start 05/04/18 at 15:30 Glucose (Glutose) 15 gm Q15M PRN BUCCAL DECREASED GLUCOSE; Start 05/04/18 at 15:30 Metoclopramide HCl (Reglan) 5 mg Q6 IV Last administered on 05/07/18at 05:18; Admin Dose 5 MG; Start 05/04/18 at 18:00 Morphine Sulfate (morphine) 1 mg Q4H PRN IV SEVERE PAIN LEVEL 7-10 Last administered on 05/05/18at 06:11; Admin Dose 1 MG; Start 05/04/18 at 18:00 Insulin Aspart (Novolog Insulin Pen) NOVOLOG *MILD* ALGORITHM WITH MEALS BEDTIME SC Last administered on 05/06/18at 13:03; Admin Dose 1 UNIT; Start 05/06/18 at 07:50 Dextrose/Sodium Chloride 1,000 ml @ 40 mls/hr Q24H IV Last administered on 05/06/18at 06:15; Admin Dose 40 MLS/HR; Start 05/06/18 at 06:00 Hydralazine HCl (Apresoline) 10 mg Q6H PRN IV SBP above 140; Start 05/06/18 at 12:00 ASYA HOOKER May 07, 2018 08:34
[2018-05-07] MEDS: NIFEdipine (XL) 60 MG TAB PO SCH ×2 (09:05→20:21)
[2018-05-07] MEDS: ACETAMINOPHEN 325 MG TAB PO PRN ×2 (10:01→20:30)
--- NOTE | 2018-05-07 11:30 | NUR ---
ENDORSEMENT: Report given to Nata GREWAL for continuation of care. Pt resting comfortably in bed.
--- NOTE | 2018-05-07 12:03 | NUR ---
ENDORSEMENT: I received report from Darcy Reyes RN for continuation of care for this patient.
--- NOTE | 2018-05-07 16:49 | PN ---
Date/Time of Note Date/Time of Note DATE: 05/07/18 TIME: 16:46 Assessment/Plan VTE Prophylaxis Risk score (from Ns)>0 risk: 3 SCD applied (from Ns): Yes Pharmacological prophylaxis: NA/contraindicated Pharm contraindication: low risk/ambulating Lines/Catheters IV [facility]ter Type (from [email or web address] Peripheral IV Urinary Cath still in place: No Assessment/Plan Hospital Course 73-year-old female with Hospital Course 1. hematdEmesis rule out GI bleed GI bleed. 2. Arthritis 3. End-stage renal disease, on HD monday 4. Diabetes mellitus type II with hyperglycemia. 5. Hypertension. 6. Overweight 7. Hx of GI bleed in past 8. Diabetic nephropathy, retinopathy and neuropathy. 9. Arrhythmia. 10. Hypercalcemia 2/2 ESDR, better 11. compression fracture of T12 Assessment/Plan -GI prophylaxis protonix IV BID no signs of bleeding, globin 10.1 -DVT prophylaxis SCD bilaterally -Protonix IV BID -avoid anxiolytics. -EGD tomorrow -Liquid diet -HD today Likely DC tomorrow after EGD Result Diagram: 05/07/18 0425 05/07/18 0425 Results 24hrs Laboratory Tests Test 05/06/18 17:29 05/06/18 20:50 05/07/18 04:25 05/07/18 09:04 Bedside Glucose 130 154 114 White Blood Count 5.0 # Red Blood Count 3.34 L Hemoglobin 10.8 L Hematocrit 32.5 L Mean Corpuscular 97.3 Volume Mean Corpuscular 32.3 Hemoglobin Mean Corpuscular 33.2 Hemoglobin Concent Red Cell 13.3 Distribution Width Platelet Count 144 Mean Platelet Volume 10.6 H Immature 0.200 Granulocytes % Neutrophils % 54.3 Lymphocytes % 24.7 Monocytes % 8.8 Eosinophils % 11.6 H Basophils % 0.4 Nucleated Red Blood 0.0 Cells % Immature 0.010 Granulocytes # Neutrophils # 2.7 Lymphocytes # 1.2 Monocytes # 0.4 Eosinophils # 0.6 H Basophils # 0.0 Nucleated Red Blood 0.0 Cells # Sodium Level 132 L Potassium Level 4.4 Chloride Level 92 L Carbon Dioxide Level 27 Anion Gap 13 Blood Urea Nitrogen 62 H Creatinine 8.43 H Est Glomerular Filtrat Rate mL/min Glucose Level 102 Calcium Level 8.0 L Test 05/07/18 12:37 Bedside Glucose 120 Subjective 24 Hr Interval Summary Free Text/Dictation Doing well. no hematemesis getting HD. Exam/Review of Systems Exam Vitals Vital Signs Date Temp Pulse Resp B/P (MAP) Pulse Ox O2 O2 Flow FiO2 Time Delivery Rate 05/07/18 98.4 60 18 143/67 98 Room Air 15:22 (92) 05/04/18 2 09:38 Intake and Output 05/06/18 05/06/18 05/07/18 1515:00 23:00 07:00 IntakeIntake Total 200 ml 540 ml 400 ml BalanceBalance 200 ml 540 ml 400 ml Exam eft arm av fistula Constitutional: alert, oriented Neck: supple Respiratory: clear to auscultation Cardiovascular: regular rate and rhythm Gastrointestinal: soft Results Results 24hrs Laboratory Tests Test 05/06/18 17:29 05/06/18 20:50 05/07/18 04:25 05/07/18 09:04 Bedside Glucose 130 154 114 White Blood Count 5.0 # Red Blood Count 3.34 L Hemoglobin 10.8 L Hematocrit 32.5 L Mean Corpuscular 97.3 Volume Mean Corpuscular 32.3 Hemoglobin Mean Corpuscular 33.2 Hemoglobin Concent Red Cell 13.3 Distribution Width Platelet Count 144 Mean Platelet Volume 10.6 H Immature 0.200 Granulocytes % Neutrophils % 54.3 Lymphocytes % 24.7 Monocytes % 8.8 Eosinophils % 11.6 H Basophils % 0.4 Nucleated Red Blood 0.0 Cells % Immature 0.010 Granulocytes # Neutrophils # 2.7 Lymphocytes # 1.2 Monocytes # 0.4 Eosinophils # 0.6 H Basophils # 0.0 Nucleated Red Blood 0.0 Cells # Sodium Level 132 L Potassium Level 4.4 Chloride Level 92 L Carbon Dioxide Level 27 Anion Gap 13 Blood Urea Nitrogen 62 H Creatinine 8.43 H Est Glomerular Filtrat Rate mL/min Glucose Level 102 Calcium Level 8.0 L Test 05/07/18 12:37 Bedside Glucose 120 Medications Medication Current Medications Hydralazine HCl (Apresoline) 10 mg Q6H PRN IV ELEVATED BLOOD PRESSURE Last administered on 05/04/18at 13:41; Admin Dose 10 MG; Start 05/04/18 at 13:30 Bisacodyl (Dulcolax) 5 mg DAILY PRN PO CONSTIPATION; Start 05/04/18 at 14:30; Status Hold Nifedipine (Procardia Xl) 60 mg BID PO Last administered on 05/07/18at 09:05; Admin Dose 60 MG; Start 05/04/18 at 21:00 Pantoprazole (Protonix Iv) 40 mg BID@06,18 IV Last administered on 05/07/18at 05:18; Admin Dose 40 MG; Start 05/04/18 at 18:00 Miscellaneous Information 1 ea NOTE XX ; Start 05/04/18 at 15:30 Glucose (Glutose) 15 gm Q15M PRN PO DECREASED GLUCOSE; Start 05/04/18 at 15:30 Glucose (Glutose) 22.5 gm Q15M PRN PO DECREASED GLUCOSE; Start 05/04/18 at 15:30 Dextrose (D50w Syringe) 25 ml Q15M PRN IV DECREASED GLUCOSE; Start 05/04/18 at 15:30 Dextrose (D50w Syringe) 50 ml Q15M PRN IV DECREASED GLUCOSE; Start 05/04/18 at 15:30 Glucagon (Glucagen) 1 mg Q15M PRN IM DECREASED GLUCOSE; Start 05/04/18 at 15:30 Glucose (Glutose) 15 gm Q15M PRN BUCCAL DECREASED GLUCOSE; Start 05/04/18 at 15:30 Metoclopramide HCl (Reglan) 5 mg Q6 IV Last administered on 05/07/18at 12:38; Admin Dose 5 MG; Start 05/04/18 at 18:00 Morphine Sulfate (morphine) 1 mg Q4H PRN IV SEVERE PAIN LEVEL 7-10 Last administered on 05/05/18at 06:11; Admin Dose 1 MG; Start 05/04/18 at 18:00 Insulin Aspart (Novolog Insulin Pen) NOVOLOG *MILD* ALGORITHM WITH MEALS BEDTIME SC Last administered on 05/06/18at 13:03; Admin Dose 1 UNIT; Start 05/06/18 at 07:50 Hydralazine HCl (Apresoline) 10 mg Q6H PRN IV SBP above 140; Start 05/06/18 at 12:00 Acetaminophen (Tylenol Tab) 650 mg Q6H PRN PO MILD PAIN(1-3)OR ELEVATED TEMP Last administered on 05/07/18at 10:01; Admin Dose 650 MG; Start 05/07/18 at 10:00 AMADO JIM MD May 07, 2018 16:49
[2018-05-07] MEDS ORDERED: CEPASTAT LOZENGE ONE (17:27)
--- NOTE | 2018-05-07 20:24 | NUR ---
END OF SHIFT NOTE: Patient was kept NPO and was scheduled to have an EGD at 1500; I spoke with [facility] and they were able to start dialysis at 1300; spoke with GI lab and they stated the procedure may be canceled or may happen between 1600 or 1700; however procedure was canceled, patient resumed previous diet and heplock from IV; dialysis completed with 1.5 L output; patient only reported at 1700 heartburn; patient given protonix and reglan; patient verbalized relief. Patient had no other events noted.
[2018-05-08] VITALS (13 sets, daily range): BP systolic 128–169; BP diastolic 46–93; PULSE 60–72; RESP 15–24
[2018-05-08] MEDS: PANTOPRAZOLE 40 MG INJ IV SCH ×2 (05:33→06:35)
[2018-05-08] MEDS: METOCLOPRAMIDE 10 MG INJ IV SCH ×5 (05:33→17:33)
[2018-05-08] MEDS: morphine 2 MG INJ IV PRN (06:34)
[2018-05-08] MEDS: INSULIN ASPART [NOVOLOG] 3 ML PEN SC SCH ×3 (07:50→17:33)
[2018-05-08] MEDS: NIFEdipine (XL) 60 MG TAB PO SCH (09:00)
[2018-05-08] MEDS: hydrALAzine 20 MG INJ IV PRN (09:36)
--- NOTE | 2018-05-08 10:00 | NUR ---
NURSING NOTE: PATIENT SENT TO GI LAB FOR EGD, REPORT GIVEN TO ARUNA RN IN GI. PREOP CHECKLIST AND SBAR DONE. PATIENT GIVEN HYDRALAZINE AND HOUR EARLIER, B/P NOW 141/60.
--- NOTE | 2018-05-08 10:41 | PREAC ---
Date/Time of Note Date/Time of Note DATE: 05/08/18 TIME: 10:39 Anesthesia Eval and Record Evaluation Time Pre-Procedure Interview DATE: 05/08/18 TIME: 10:39 Age 73 Sex female NPO: 8 hrs Preoperative diagnosis GI bleeding Planned procedure EGD Past Medical History Past Medical History: Includes Cardio: HTN, CAD Endo: Diabetes Renal: ESRD on dialysis, HD last: (yesterday) Surgery & Anesthesia Issues No known issue Meds Anticoagulation: No Beta Grupo within 24 hr: No Reason Beta Grupo not given: Pt. not on B-Grupo Active Scripts Docusate Sodium (Dok) 100 Mg Capsule, 100 MG PO Q12H PRN for CONSTIPATION for 28 Days, CAP Prov:KENZIE BROWNE MD 02/28/17 Bisacodyl* (Bisacodyl*) 5 Mg Tablet.dr, 5 MG PO DAILY PRN for CONSTIPATION for 28 Days Prov:KENZIE BROWNE MD 02/28/17 Tramadol HCl (Tramadol HCl) 50 Mg Tablet, 50 MG PO TID PRN for PAIN LEVEL 4-7 for 14 Days, TAB Prov:KENZIE BROWNE MD 02/28/17 Hydralazine Hcl* (Apresoline*) 50 Mg Tab, 100 MG PO TID for 28 Days, TAB Prov:KENZIE BROWNE MD 02/28/17 Doxazosin Mesylate* (Cardura*) 2 Mg Tablet, 2 MG PO HS for 14 Days, TAB Prov:KENZIE BROWNE MD 02/28/17 Heparin Sod (Porcine)* (Heparin*) 5,000 Unit/0.5 Ml Soln, 5000 UNIT SC Q12 for 1 Day Prov:KENZIE BROWNE MD 02/28/17 Nifedipine* (Nifedipine ER*) 60 Mg Tablet.sa, 60 MG PO BID, #120 TAB.SA Prov:MARVIN WATKINS MD 04/10/14 Reported Medications Ondansetron Hcl* (Zofran*) 4 Mg Tablet, 4 MG PO DAILY PRN for NAUSEA AND OR V OMITING, TAB 04/09/14 Metoclopramide* (Reglan*) 5 Mg Tablet, 5 MG PO DAILY PRN for NAUSEA AND/OR VOMITING, TAB 04/09/14 Calcium Acetate* (Calcium Acetate*) 667 Mg Capsule, 667 MG PO WITH MEALS, CAP 04/09/14 Multivit/Ca Carb/B Cmplx/Fa* (Beronica-Morgan*) 1 Tab Tab, 1 TAB PO DAILY, TAB 04/09/14 Fluoxetine Hcl* (Prozac*) 20 Mg Capsule, 20 MG PO DAILY 01/09/12 Famotidine* (Pepcid*) 40 Mg Tablet, 40 MG PO HS 01/09/12 Esomeprazole Mag Trihydrate (Nexium) 40 Mg Capsule.dr, 40 MG PO DAILY 01/09/12 Losartan Potassium* (Cozaar*) 50 Mg Tablet, 50 MG PO BID 01/09/12 Current Medications Hydralazine HCl (Apresoline) 10 mg Q6H PRN IV ELEVATED BLOOD PRESSURE Last administered on 05/08/18at 09:36; Admin Dose 10 MG; Start 05/04/18 at 13:30 Bisacodyl (Dulcolax) 5 mg DAILY PRN PO CONSTIPATION; Start 05/04/18 at 14:30; Status Hold Nifedipine (Procardia Xl) 60 mg BID PO Last administered on 05/07/18at 20:21; Admin Dose 60 MG; Start 05/04/18 at 21:00 Pantoprazole (Protonix Iv) 40 mg BID@06,18 IV Last administered on 05/08/18at 06:35; Admin Dose 40 MG; Start 05/04/18 at 18:00 Miscellaneous Information 1 ea NOTE XX ; Start 05/04/18 at 15:30 Glucose (Glutose) 15 gm Q15M PRN PO DECREASED GLUCOSE; Start 05/04/18 at 15:30 Glucose (Glutose) 22.5 gm Q15M PRN PO DECREASED GLUCOSE; Start 05/04/18 at 15:30 Dextrose (D50w Syringe) 25 ml Q15M PRN IV DECREASED GLUCOSE; Start 05/04/18 at 15:30 Dextrose (D50w Syringe) 50 ml Q15M PRN IV DECREASED GLUCOSE; Start 05/04/18 at 15:30 Glucagon (Glucagen) 1 mg Q15M PRN IM DECREASED GLUCOSE; Start 05/04/18 at 15:30 Glucose (Glutose) 15 gm Q15M PRN BUCCAL DECREASED GLUCOSE; Start 05/04/18 at 15:30 Metoclopramide HCl (Reglan) 5 mg Q6 IV Last administered on 05/08/18at 06:38; Admin Dose 5 MG; Start 05/04/18 at 18:00 Morphine Sulfate (morphine) 1 mg Q4H PRN IV SEVERE PAIN LEVEL 7-10 Last administered on 05/08/18at 06:34; Admin Dose 1 MG; Start 05/04/18 at 18:00 Insulin Aspart (Novolog Insulin Pen) NOVOLOG *MILD* ALGORITHM WITH MEALS BEDTIME SC Last administered on 05/06/18at 13:03; Admin Dose 1 UNIT; Start 05/06/18 at 07:50 Hydralazine HCl (Apresoline) 10 mg Q6H PRN IV SBP above 140; Start 05/06/18 at 12:00 Acetaminophen (Tylenol Tab) 650 mg Q6H PRN PO MILD PAIN(1-3)OR ELEVATED TEMP Last administered on 05/07/18at 20:30; Admin Dose 650 MG; Start 05/07/18 at 10:00 Meds reviewed: Yes Allergies Coded Allergies: No Known Allergies (Verified Allergy, Mild, 02/22/17) Allergies Reviewed: Yes Labs/Studies Labs Reviewed: Reviewed by anesthesiologist Result Diagram: 05/08/18 0602 05/07/18 0425 Laboratory Tests 05/08/18 06:02 test: N/A Studies: ECG (sr), CXR (n/a) Pre-procedure Exam Last vitals Vital Signs Date Temp Pulse Resp B/P (MAP) Pulse Ox O2 O2 Flow FiO2 Time Delivery Rate 05/08/18 98.5 64 18 169/77 94 08:12 (107) 05/08/18 Room Air 01:57 05/04/18 2 09:38 Airway: Adequate mouth opening Mallampati: Mallampati I Teeth: Abnormal Lung: Normal Heart: Normal ASA Physical Status ASA physical status: 2 Emergency: None Planned Anesthetic General/MAC: MAC Planned Pain Management Parenteral pain med Pre-operative Attestations Prior to commencing anesthesia and surgery, the patient was re-evaluated, there was verification of: *The patient's identity *The results of appropriate recent lab work and preoperative vital signs *The above evaluation not changing prior to induction *Anesthetic plan, risk benefits, alternative and complications discussed with patient/family; questions answered; patient/family understands, accepts and wishes to proceed. SPEEDY MONDRAGON MD May 08, 2018 10:41
[2018-05-08] MEDS ORDERED: PROPOFOL 20 ML ONE (10:46)
[2018-05-08] MEDS ORDERED: EPHEDrine SULFATE 50 MG/5 ML SYG IV PRN (11:00)
[2018-05-08] MEDS ORDERED: ONDANSETRON 4 MG INJ IV PRN (11:00)
[2018-05-08] MEDS ORDERED: LABETALOL HCL 20MG INJ IV PRN (11:00)
[2018-05-08] MEDS ORDERED: hydrALAzine 20 MG INJ IV PRN (11:00)
--- NOTE | 2018-05-08 11:04 | NUR ---
TO PACU FROM GI LAB WITH ANESTHESIOLOGIST AND MONITORED FOR STABLE V AND NONLABORED RESPIRATIONS. AWAKE ALERT. ABD SOFT.
--- NOTE | 2018-05-08 11:48 | NUR ---
REPORT TO ADALBERTO NAJERA ND TRANSFER TO ROOM 429
--- NOTE | 2018-05-08 12:04 | NUR ---
NURSING NOTE: PATIENT ARRIVED BACK INTO ROOM 429 S/P EGD, REPORT GIVEN BY JOSIAS GREWAL. PATIENT ALERT AND ORIENTATED, VSS, B/P 140/56. PATIENT RESUMED TO CLEAR LIQUID DIET, PATIENT DEMANDING REGULAR DIET. WILL PAGE , AND CONTINUE TO MONITOR.
--- NOTE | 2018-05-08 13:40 | NUR ---
ENDORSEMENT: REPORT GIVEN TO HERMELINDO GREWAL FOR CONTINUITY OF CARE. PATIENT RESTING IN BED S/P EGD. PATIENT HYPOGLYCEMIC AT 1200 AT 65 BLOOD SUGAR. RECHECKED X2 WITH READING OF 104 AND 83, PATIENT NOW ON CLEAR LIQUIDS, TOLERATING WELL. VSS. ENDORSED TO HERMELINDO.
--- NOTE | 2018-05-08 16:36 | NUR ---
CM NOTES: THIS CM SPOKE WITH PREVIOUS [facility] CJ ADMISSION [phone] (O) (F) [phone]: [address] [place] [address], FAXED ALL UPDATE AND CONFIRMED THE ACCEPTANCE. ALSO S/W JUNIOR AT RENAL OF OUTPT HD [phone], (F). THIS CM ALSO FAXED ALL UPDATE NOTES TO ABOVE OUTPT HD AND HER APPOINTMENTS ARE MON, MON, MONDAY AT 8:00AM. ORDERED [facility] [phone], TRIPS #S [id number]. PT'S DAUGHTER ALCIRA GEARRDO [phone] WAS NOTIFIED VIA [employer]. PLAN: DC TO SNF [facility] CM [phone]
--- NOTE | 2018-05-08 16:56 | NUR ---
NURSE NOTE: I gave report to PURNIMA GREWAL at [facility] for continuation of care for this patient.
--- NOTE | 2018-05-08 17:07 | PDOCDIS ---
Discharge Instructions DIAGNOSIS Discharge Diagnosis Esophagitis Gastritis duodenitis CONDITION [id number] Patient Condition: [id number] Fair HOME CARE INSTRUCTIONS: [id number] Diet Instructions: Easun3t RENAL/Carbcontrolled ACTIVITY: [id number] Activity Restrictions: Gnvkg4b No Restrictions Slowly Increase Activity FOLLOW UP/APPOINTMENTS Follow-up Plan f/u Dr Pollock in 1-2 week f/u MWF AMADO JIM MD May 08, 2018 17:07
--- NOTE | 2018-05-08 17:53 | DS ---
DATE OF ADMISSION: 05/04/2018 DATE OF DISCHARGE: 05/08/2018 HISTORY OF PRESENTING ILLNESS AND HOSPITAL COURSE: This is a 73-year-old female with end-stage renal disease on hemodialysis, hypertension, diabetes, neuropathy, retinopathy, history of right great toe amputation, GERD, coronary artery disease, presented to the emergency department complaining of vomi ting blood to the ER. She was brought in the ambulance. She started vomiting before started her monse lysis in the dialysis center. She was not on any blood thinning medications. Denied any black stool on admission. Vital signs were stable. The patient had a CT of the abdomen and pelvis that showed no evidence of obstructive uropathy, diverticulitis or appendicitis. A 2 mm left renal calculus, atr ophic kidneys, post-cholecystectomy. The patient was seen by GI consultation and was started on IV P rotonix. She initially had an NG tube. Hemoglobin stayed from 13.3 to 10.5. Finally, there was no evidence of any GI bleeding. The patient went for endoscopy on 05/08/2018 that showed linear esophag itis, acute gastritis without bleeding, duodenitis without bleeding. The patient was started on diet , which was tolerating without any problem. The patient was also continued on hemodialysis on her st ay. Currently, the patient is getting discharged back to the rehabilitation. FINAL DISCHARGE DIAGNOSES: 1. Hematemesis, likely secondary to esophagitis/acute gastritis/duodenitis, status post EGD. 2. End-stage renal disease on hemodialysis. 3. Hypertension. 4. Diabetes. 5. Arthritis. 6. History of gastrointestinal bleed in the past. 7. History of diabetic nephropathy, retinopathy, neuropathy. 8. History of hypercalcemia. 9. Compression fracture . DISCHARGE CONDITION: Stable. DISCHARGE DIET: Renal diet. DISCHARGE INSTRUCTIONS: The patient was instructed to follow up with Dr. Apple in 1 week. DISCHARGE MEDICATIONS: 1. Acetaminophen. 2. Nifedipine 60 b.i.d. 3. Protonix 40 p.o. b.i.d. 4. Reglan 5 mg p.o. p.r.n. nausea. 5. Zofran p.r.n. nausea. Continue with home medications which were: 1. Calcium acetate 667 with the meals. 2. Prozac 20. 3. Discontinue Pepcid. 4. Losartan 50 b.i.d. 5. Multivitamin. 6. Zofran. Dictated By: AMADO HUA/MAHENDRA Conf#: [id number] DID#: [id number] CC: CARO APPLE MD;*End*
--- NOTE | 2018-05-08 18:44 | NUR ---
DISCHARGE NOTE: Patient was discharged back to facility; patient IV access was removed and dressing was removed from AV Fistula site. I gave report to EMS personnel.
--- NOTE | 2018-05-09 08:34 | PAC ---
Date/Time of Note Date/Time of Note DATE: 05/09/18 TIME: 08:34 Post-Anesthesia Notes Post-Anesthesia Note Last documented vital signs Vital Signs Date Temp Pulse Resp B/P (MAP) Pulse Ox O2 O2 Flow FiO2 Time Delivery Rate 05/08/18 97.9 68 18 131/72 98 15:50 (91) 05/08/18 Nasal 3.0 11:43 Cannula Activity: WNL Respiratory function: WNL Cardiovascular function: WNL Mental status: Baseline Pain reasonably controlled: Yes Hydration appropriate: Yes Nausea/Vomiting absent: No SPEEDY MONDRAGON MD May 09, 2018 08:34
== END 2018-05-08 18:40 | DRG 377 ==
LOC: E/R 08:37 → MS1 11:08 → EDBEDREQ 11:42 → MS1 05-05 06:14
PROVIDERS: ADMIT Internal Medicine; ATTEND Internal Medicine
PROC: 5A1D70Z Performance of Urinary Filtration, Intermittent, Less than 6 Hours Per Day (ICD-10-PCS; 2018-05-05)
PROC: 5A1D70Z Performance of Urinary Filtration, Intermittent, Less than 6 Hours Per Day (ICD-10-PCS; 2018-05-07)
PROC: 0DB68ZX Excision of Stomach, Via Natural or Artificial Opening Endoscopic, Diagnostic (ICD-10-PCS; 2018-05-08)
PROC: 0DB98ZX Excision of Duodenum, Via Natural or Artificial Opening Endoscopic, Diagnostic (ICD-10-PCS; principal; 2018-05-08 12:30)
DX: K29.01 Acute gastritis with bleeding (principal); N18.6 End stage renal disease; I13.11 Hypertensive heart and chronic kidney disease without heart failure, with stage 5 chronic kidney disease, or end stage renal disease; M48.54XA Collapsed vertebra, not elsewhere classified, thoracic region, initial encounter for fracture; K29.81 Duodenitis with bleeding; E11.22 Type 2 diabetes mellitus with diabetic chronic kidney disease; Z99.2 Dependence on renal dialysis; E11.319 Type 2 diabetes mellitus with unspecified diabetic retinopathy without macular edema; E11.21 Type 2 diabetes mellitus with diabetic nephropathy; E11.40 Type 2 diabetes mellitus with diabetic neuropathy, unspecified; E66.3 Overweight; Z68.26 Body mass index [BMI] 26.0-26.9, adult; E11.65 Type 2 diabetes mellitus with hyperglycemia; E83.52 Hypercalcemia; I25.10 Atherosclerotic heart disease of native coronary artery without angina pectoris; M19.90 Unspecified osteoarthritis, unspecified site; K20.9 Esophagitis, unspecified; K31.819 Angiodysplasia of stomach and duodenum without bleeding
CPT/HCPCS: 74176; 80048; 80053; 82962; 83036; 84484; 85014; 85018; 85025; 85610; 85730; 86850; 86900; 86901; 87081; 87340; 88305; 90935; 93005; 96374; 96375; C9113; J0360; J1815; J2060; J2270; J2405; J2765; J7042